=== PATIENT | male | born 1950 | race Caucasian/White ===

== ENCOUNTER 2020-03-28 09:45 | Outpatient (REF) | payer MEDICARE, MEDICAID, OTHER, SELFPAY ==
[2020-03-28 11:53] LABS: MANUAL DIFF FLAG NO
[2020-03-28 12:03] LABS: Basophils Percent Auto 0.2 % (0-2); Eosinophils Absolute Auto 0.2 X10*3/uL (0.0-0.4); Eosinophils Percent Auto 5.7 % (0-4); Hematocrit 43.4 % (42-52); Hemoglobin 14.2 g/dl (14.0-18.0); Imm Gran Abs Auto 0.01 X10*3/uL (0.00-0.03); Imm Gran Pct Auto 0.2 % (0.0-0.4); Lymphocytes Absolute Auto 1.4 X10*3/uL (1.2-4.9); Lymphocytes Percent Auto 32.6 % (20-40); Mean Corpuscular HGB Conc 32.7 g/dl (31.0-36.0); Mean Corpuscular Hemoglobin 28.9 pg (27.0-33.0); Mean Corpuscular Volume 88.2 fL (80-98); Mean Platelet Volume 10.4 fL (9.4-12.4); Monocytes Absolute Auto 0.4 X10*3/uL (0.1-1.2); Monocytes Percent Auto 9.5 % (2-11); Neutrophils Absolute Auto 2.2 X10*3/uL (2.0-8.3); Neutrophils Percent Auto 51.8 % (45-73); Platelet Count 167 X10*3/uL (160-400); Red Blood Count 4.92 X10*6/uL (4.60-5.80); Red Cell Distribution Width 12.7 % (11.0-16.0); White Blood Count 4.2 X10*3/uL (4.8-10.8)
[2020-03-28 12:10] LABS: INTERNATIONAL NORM RATIO 1.1 (0.9-1.1); Prothrombin Time 12.7 SEC (10.8-13.0)
[2020-03-28 12:52] LABS: Alanine Aminotransferase 15 U/L (0-40); Albumin Level 4.4 g/dL (3.5-5.0); Alkaline Phosphatase 55 U/L (39-117); Aspartate Amino Transferase 22 U/L (5-37); Bilirubin Direct 0.5 mg/dL (0.0-0.5); Bilirubin Total 1.6 mg/dL (0.0-1.0); Iron 138 mcg/dL (45-160); Percent Iron Saturation 45 % (15-50); Total Iron Binding Capacity 308 mcg/dL (228-428); Unsaturated Iron Binding 170 ug/dL
[2020-03-28 12:55] LABS: HBS Num1 1.64 mIU/mL (0-7.99); HBsAGNum1 0.21 S/CO (0.00-0.99); Hepatitis B Surface Antigen Negative (Negative); ~Hepatitis B Surface Antibody NONREACTIVE (Nonreactive)
[2020-03-28 12:57] LABS: Ferritin 135 ng/mL (20-250)
[2020-04-04 13:56] LABS: FIB-ALT 12 U/L (9-46); FIB-Alpha-2-Macroglobulin 312 mg/dL (106-279); FIB-Apolipoprotein A1 138 mg/dL (94-176); FIB-GGT 14 U/L (3-70); FIB-Haptoglobin 97 mg/dL (43-212); Liver Fibrosis Score 0.65; Liver Fibrosis Stage F3; Nec Inflam Act Grade A0; Nec Inflam Act Score 0.06
== END 2020-03-28 09:46 | disposition home or self-care (01) ==
LOC: HO.LAB 09:45
PROVIDERS: Visit Provider Internal Medicine Gastroenterology
DX: R63.4 Abnormal weight loss (principal); Z86.19 Personal history of other infectious and parasitic diseases
CPT/HCPCS: 36415; 80076; 81596; 82728; 83540; 85025; 85610; 86706; 87340

== ENCOUNTER 2020-04-01 13:28 | Outpatient (REF) | payer MEDICARE, OTHER, SELFPAY | END 2020-04-01 13:29 | disposition home or self-care (01) | LOC: HO.LNP 13:28 | PROVIDERS: Visit Provider Internal Medicine Gastroenterology | DX: R63.4 Abnormal weight loss (principal); Z86.19 Personal history of other infectious and parasitic diseases | CPT/HCPCS: 87338 ==

== ENCOUNTER → 2020-04-24 09:10 | Outpatient (BNVA) | payer MEDICARE, MEDICAID, SELFPAY | PROVIDERS: PCP Internal Medicine; Visit Provider Internal Medicine Gastroenterology | DX: R63.4 Abnormal weight loss (principal); K59.09 Other constipation; Z86.010 Personal history of colon polyps; Z86.19 Personal history of other infectious and parasitic diseases | CPT/HCPCS: 99212 ==

== ENCOUNTER → 2020-07-24 09:00 | Outpatient (BNVA) | payer MEDICARE, MEDICAID, SELFPAY | PROVIDERS: PCP Internal Medicine; Visit Provider Surgery | DX: K62.82 Dysplasia of anus (principal); A63.0 Anogenital (venereal) warts | CPT/HCPCS: 46600; 99212 ==

== ENCOUNTER → 2021-01-21 08:57 | Outpatient (BNVA) | payer MEDICARE, MEDICAID, SELFPAY | PROVIDERS: PCP Internal Medicine; Referring Provider Internal Medicine; Visit Provider Surgery | DX: Z87.19 Personal history of other diseases of the digestive system (principal) | CPT/HCPCS: 46600; 99212 ==

== ENCOUNTER 2021-02-09 10:58 | Outpatient (REF) | payer MEDICARE, OTHER, SELFPAY ==
[2021-02-09 12:55] LABS: MANUAL DIFF FLAG NO
[2021-02-09 13:11] LABS: Basophils Percent Auto 0.2 % (0-2); Eosinophils Absolute Auto 0.2 X10*3/uL (0.0-0.4); Eosinophils Percent Auto 5.2 % (0-4); Hematocrit 43.7 % (42-52); Hemoglobin 13.8 g/dl (14.0-18.0); Imm Gran Abs Auto 0.01 X10*3/uL (0.00-0.03); Imm Gran Pct Auto 0.2 % (0.0-0.4); Lymphocytes Absolute Auto 1.3 X10*3/uL (1.2-4.9); Lymphocytes Percent Auto 28.5 % (20-40); Mean Corpuscular HGB Conc 31.6 g/dl (31.0-36.0); Mean Corpuscular Hemoglobin 27.8 pg (27.0-33.0); Mean Corpuscular Volume 87.9 fL (80-98); Mean Platelet Volume 9.3 fL (9.4-12.4); Monocytes Absolute Auto 0.5 X10*3/uL (0.1-1.2); Monocytes Percent Auto 9.8 % (2-11); Neutrophils Absolute Auto 2.6 X10*3/uL (2.0-8.3); Neutrophils Percent Auto 56.1 % (45-73); Platelet Count 169 X10*3/uL (160-400); Red Blood Count 4.97 X10*6/uL (4.60-5.80); White Blood Count 4.6 X10*3/uL (4.8-10.8)
[2021-02-09 13:29] LABS: INTERNATIONAL NORM RATIO 1.1 (0.9-1.1)
[2021-02-09 13:37] LABS: Alanine Aminotransferase 17 U/L (0-40); Albumin Level 4.4 g/dL (3.5-5.0); Alkaline Phosphatase 62 U/L (39-117); Anion Gap 12 (12-20); Aspartate Amino Transferase 23 U/L (5-37); Bilirubin Total 1.6 mg/dL (0.0-1.0); Blood Urea Nitrogen 18 mg/dL (9-16); Calcium 9.6 mg/dL (8.4-10.2); Carbon Dioxide 30 mmol/L (22-29); Chloride 104 mmol/L (96-108); Estimated Glomerular Filt Rate > 60; Glucose Random 104 mg/dL (60-115); Sodium 142 mmol/L (135-145); Total Protein 7.2 g/dL (6.5-8.0)
[2021-02-09 14:00] LABS: Ferritin 129 ng/mL (20-250)
[2021-02-11 10:42] LABS: Alpha Fetoprotein 1.6 ng/mL (<6.1)
[2021-02-11 12:36] LABS: Anti Nuclear Antibody Screen NEGATIVE (NEGATIVE)
== END 2021-02-09 10:59 | disposition home or self-care (01) ==
LOC: HO.LAB 10:58
PROVIDERS: PCP Internal Medicine; Visit Provider Internal Medicine Gastroenterology
DX: K74.60 Unspecified cirrhosis of liver (principal); K59.09 Other constipation; A63.0 Anogenital (venereal) warts; Z86.19 Personal history of other infectious and parasitic diseases; Z86.010 Personal history of colon polyps
CPT/HCPCS: 36415; 80053; 82105; 82728; 85025; 85610; 86038; 86039; 99212

== ENCOUNTER 2021-04-01 08:35 | Outpatient (REF) | payer MEDICARE, OTHER, SELFPAY ==
--- NOTE | ~2021-04-01 | US_ITS ---
EXAMINATION: US ABDOMEN COMPLETE CLINICAL INFORMATION: Unspecified cirrhosis of liver. COMPARISON: Ultrasound abdomen complete 01/16/2020 TECHNIQUE: Real-time imaging of the abdominal viscera. FINDINGS: PANCREAS: Normal. ABDOMINAL AORTA: The proximal, mid, and distal segments are normal in caliber. INFERIOR VENA CAVA: Visualized portions are normal. LIVER: Normal. The liver is normal in size. The liver contour is normal. Parenchymal echogenicity is normal. No focal hepatic lesion. There is no intrahepatic biliary duct dilatation seen. GALLBLADDER: Gallbladder wall thickness is 0.26 cm. The gallbladder is physiologically distended without evidence of stones, sludge, polyps, wall thickening or pericholecystic fluid. COMMON BILE DUCT: Normal in caliber measuring 0.3 cm in diameter. RIGHT KIDNEY: Normal. No hydronephrosis. No renal calculi or focal parenchymal lesions. The kidney measures 10.3 cm in maximum dimension. LEFT KIDNEY: Normal. No hydronephrosis. No renal calculi or focal parenchymal lesions. The kidney measures 10.1 cm in maximum dimension. SPLEEN: Normal. The spleen measures 9.2 cm in maximum dimension. FREE FLUID: None. US/US abdomen complete IMPRESSION: Unremarkable ultrasound abdomen.
== END 2021-04-01 08:36 | disposition home or self-care (01) ==
LOC: HO.US 08:35
PROVIDERS: Visit Provider Internal Medicine Gastroenterology
DX: K74.60 Unspecified cirrhosis of liver (principal)
CPT/HCPCS: 76700

== ENCOUNTER 2021-04-03 08:36 | Day surgery (SDC) | payer MEDICARE, OTHER, SELFPAY ==
--- NOTE | 2021-04-02 09:05 | HO.ANESPROP2 ---
Documented by User: Niurka Ly NP 04/02/21 09:29 HPI - Anesthesia Eval Consult details Narrative: 70yo M for Colonoscopy PMFSH Active Problems Active Problems: All Active Problems (Updated 03/30/21 @ 14:26 by Yamilex Benavidez, SORIN) Cirrhosis of liver without ascites (Acute) Anal intraepithelial neoplasia I (Acute) Anal condyloma (Acute) Chronic constipation (Acute) History of Helicobacter pylori infection (Acute) History of adenomatous polyp of colon (Acute) Weight loss (Acute) Past Medical History Medical History Anal condyloma Anal intraepithelial neoplasia I Chronic constipation Cirrhosis History of adenomatous polyp of colon History of Helicobacter pylori infection Hypertension Weight loss Family History Family History Father Liver problem Mother Alzheimer disease Sister History of breast cancer Surgical History Surgical History History of esophagogastroduodenoscopy (EGD) History of hemorrhoidectomy Hx of colonoscopy Social History Social History Alcohol intake: current Alcohol intake frequency: does not drink Patient Tobacco Use Status: Former Tobacco user Use of substances other than those prescribed or required for medical reasons: No Are you DNR?: No Advance Directives: No Advance Directives Information Provided: Yes Meds Allergies Allergy/AdvReac Type Severity Reaction Status Date / Time No Known Allergies Allergy Verified 03/30/21 14:31 Home Medications Medication Instructions Recorded Confirmed Last Taken Type docusate sodium 100 mg capsule 100 mg PO BID 04/24/20 03/30/21 Unknown History (Colace) losartan 50 mg-hydrochlorothiazide 1 tab PO DAILY 04/24/20 03/30/21 04/03/21 History 12.5 mg tablet Exam Exam Date and Time: April 02, [id number] Pertinent Lab Results Pertinent Lab Results: Laboratory Tests 02/09/21 02/09/21 12:35 12:35 WBC 4.6 L Hgb 13.8 L Hct 43.7 Plt Count 169 Sodium 142 Potassium 4.0 Chloride 104 Carbon Dioxide 30 H BUN 18 H Creatinine 0.99 Laboratory Tests 02/09/21 02/09/21 12:35 12:35 Total Bilirubin 1.6 H AST 23 ALT 17 Alkaline Phosphatase 62 Total Protein 7.2 Albumin 4.4 Alpha Fetoprotein 1.6 Assessment and Plan Assessment Anesthesia Assessment: Chart Reviewed Documented by User: Deborah Arguello MD 04/03/21 09:32 PMF Past Medical History Medical History Anal condyloma Anal intraepithelial neoplasia I Chronic constipation Cirrhosis History of adenomatous polyp of colon History of Helicobacter pylori infection Hypertension Weight loss Family History Family History Father Liver problem Mother Alzheimer disease Sister History of breast cancer Family history of problems with anesthesia: No Surgical History Surgical History History of esophagogastroduodenoscopy (EGD) History of hemorrhoidectomy Hx of colonoscopy History of Problems with Anesthesia: No Social History Social History Alcohol intake: current Alcohol intake frequency: does not drink Patient Tobacco Use Status: Former Tobacco user Use of substances other than those prescribed or required for medical reasons: No Are you DNR?: No Advance Directives: No Advance Directives Information Provided: Yes Meds Allergies Allergy/AdvReac Type Severity Reaction Status Date / Time No Known Allergies Allergy Verified 03/30/21 14:31 Home Medications Medication Instructions Recorded Confirmed Last Taken Type docusate sodium 100 mg capsule 100 mg PO BID 04/24/20 03/30/21 Unknown History (Colace) losartan 50 mg-hydrochlorothiazide 1 tab PO DAILY 04/24/20 03/30/21 04/03/21 History 12.5 mg tablet Exam Airway Mallampati Class: II TM Dist: >3cm Neck ROM: Full Assessment and Plan Assessment Anesthesia Assessment: Anesthesia Plan Discussed Final Anesthetic Review Family History of Problems with Anesthesia: No History of Problems with Anesthesia: No NPO: Yes ASA Class: III Final Preanesthetic Review: No Changes in Pt Med Stat, Meds/Allgs Chart Reviewed, Consent Obtained/Reviewed and Anes Risks/Benef Reviewed Patient Risk: Intermediate Procedure Risk: Low Assessment/Block/Sedation in SS: Assess/Block/Sedation-SS Anesthetic Plan Anesthetic Plan: MAC: Disposition: Standard PACU
[2021-04-03 09:15] VITALS: BP 132/71; PULSE 101; RESP 18; TEMP 36.4; O2SAT 98; BMI 20.5
[2021-04-03 09:45] LABS: COVID-19 Test Negative (Negative)
[2021-04-03] MEDS: Lactated Ringers 1,000 ML 100 ML IVCONT (09:59)
--- NOTE | 2021-04-03 10:21 | MHC.SHP ---
Pre-Procedural Eval Section A Date of Service: 04/03/21 The patient is an INPATIENT: No The History & Physical has been completed within 30 days and I have reviewed it.: No Section B Chief Complaint: screening, hx of adenoma polyp of colon Details of Present Illness: Colon cancer screening, history of colon polyps Relevant Family History (Specify if Yes): No Relevant Social History: None Present Medications: see Short Stay Collaborative assessment Medical History: Significant History (Anal condyloma Anal intraepithelial neoplasia I Chronic constipation History of adenomatous polyp of colon History of Helicobacter pylori infection Hypertension Weight loss) History of Previous Operations: Relevant previous surgery/procedure and date(s) (History of esophagogastroduodenoscopy (EGD) (10/30/19) History of hemorrhoidectomy (01/08/20) Hx of colonoscopy (10/30/19)) Allergies: Allergies Allergy/AdvReac Type Severity Reaction Status Date / Time No Known Allergies Allergy Verified 03/30/21 14:31 Review of Systems Sugical H&P ROS: Negative: Constitution, Cardiovascular, Respiratory and Gastrointestinal Exam Surgical H&P Exam: Normal: Heart, Normal: Lungs, Normal: Extremities and Normal: Abdomen Plan Diagnosis/Plan: Unchanged I have reviewed the history and physical and performed a pertinent physical examination on my patient. No changes have occurred unless specified.
--- NOTE | 2021-04-03 10:26 | P.OP_ITS ---
Operative Note Operative Note Date of Service: 04/03/21 Narrative: Pre-op diagnosis:?Colon cancer screening, history of colon polyps Post-op diagnosis:?other (Colon polyp, diverticulosis, hemorrhoids) Procedure:? COLONOSCOPY TILL CECUM WITH SNARE POLYPECTOMY AND SUBMUCOSAL INJECTION Consent: Indications for the procedure and potential complications of bleeding, perforation, reaction to medications and missed diagnosis were discussed with the patient and informed consent was obtained. Instrument: Olympus PCF H 190 L variable stiffness pediatric colonoscope Monitoring: Vital signs and clinical assessment, intermittent blood pressure monitoring, continuous EKG monitoring, Pulse oximetry and Carbon Dioxide monitoring were done throughout the procedure. Colon withdrawl time was 25 minutes. Procedure: The patient was placed in the left lateral decubitis position and pre-procedure medications were administered. After a digital rectal examination of the ano-rectum, the video colonoscope was inserted into the rectum and advanced through the colon to the cecum. The colonoscope was slowly withdrawn in a retrograde panoramic fashion and the colon mucosa was carefully examined including a retroflexed view of the rectum. Findings and interventions are described below. Procedure Difficulty: Without difficulty Findings: Terminal Ileum: Not evaluated Cecum:? Normal. No recurrent polyps visualized over the ileocecal valve. Ascending Colon:? Normal Transverse Colon:? Normal Descending Colon:? Normal Sigmoid Colon:? Moderate diverticulosis Rectum:? A 2 x 2 cms flat polyp at the anal verge raised with 2 cc of Orise solution (submucosal injection) and removed piece meal with a hot snare. Residual 1 cms polyp from past polypectomy - ablated with a hot snare. Ano-rectum:? Moderate internal hemorrhoids Colon preparation: Excellent ? Impression and Post Procedure Diagnosis: Colonoscopy Findings: Two polyps removed Moderate diverticulosis seen in the sigmoid colon Moderate hemorrhoids on retroflexed exam. Plan: Await pathology results Patient has an appointment on 04/30/21 in the [facility] with Pedro Rader M.D.. Repeat Colonoscopy interval based on path results - in 3 years if polyps are adenomatous and due to hx of adenomatous colon polyps. Above findings were reviewed with the patient and colon polyps and diverticulosis handouts were given in the discharge area Surgeon:?Pedro Rader MD Anesthesia:?MAC (Robbi Atwood CRNA) Was an Business Systems Developer used for this Procedure?:?Yes Business Systems Developer:?Satish Wong Estimated blood loss (mL):?0 Pathology:?other (A- RECTAL POLYP? O-RISE USED) Condition:?stable Disposition:?PACU
[2021-04-03 11:10] VITALS: BP 90/52; PULSE 79; RESP 19; TEMP 36.1; O2SAT 99
[2021-04-03 11:31] VITALS: BP 100/55; PULSE 78; RESP 18; TEMP 36.1; O2SAT 98
== END 2021-04-03 11:58 | disposition home or self-care (01) ==
PROVIDERS: Anesthesiology; PCP Internal Medicine; Visit Provider Internal Medicine Gastroenterology
PROC: 0DJD8ZZ Inspection of Lower Intestinal Tract, Via Natural or Artificial Opening Endoscopic (ICD-10-PCS; CPT 45378; principal; 2021-04-03 10:50)
DX: Z12.11 Encounter for screening for malignant neoplasm of colon (principal); K57.30 Diverticulosis of large intestine without perforation or abscess without bleeding; K64.8 Other hemorrhoids; A63.0 Anogenital (venereal) warts; I10 Essential (primary) hypertension; Z86.010 Personal history of colon polyps; Z79.899 Other long term (current) drug therapy; Z20.822 Contact with and (suspected) exposure to COVID-19
CPT/HCPCS: 45385; 45381; 36415; 87635; 88305

== ENCOUNTER → 2021-04-30 14:55 | Outpatient (BNVA) | payer MEDICARE, OTHER, SELFPAY | PROVIDERS: Referring Provider Internal Medicine; Visit Provider Internal Medicine Gastroenterology | DX: K74.60 Unspecified cirrhosis of liver (principal); K62.82 Dysplasia of anus; A63.0 Anogenital (venereal) warts; K59.09 Other constipation; R63.4 Abnormal weight loss; Z86.19 Personal history of other infectious and parasitic diseases; Z86.010 Personal history of colon polyps; Z79.899 Other long term (current) drug therapy | CPT/HCPCS: 99212 ==

== ENCOUNTER 2021-05-05 08:00 | Outpatient (REF) | payer MEDICARE, OTHER, SELFPAY ==
[2021-05-05 08:49] LABS: Hematocrit 43.2 % (42.0-52.0); Hemoglobin 13.6 g/dl (14.0-18.0); Mean Corpuscular HGB Conc 31.5 g/dl (31.0-36.0); Mean Corpuscular Hemoglobin 28.2 pg (27.0-33.0); Mean Corpuscular Volume 89.4 fL (80.0-98.0); Mean Platelet Volume 9.5 fL (9.4-12.4); Platelet Count 147 X10*3/uL (160-400); Red Blood Count 4.83 X10*6/uL (4.60-5.80); Red Cell Distribution Width 12.9 % (11.0-16.0)
[2021-05-05 09:18] LABS: Alanine Aminotransferase 18 U/L (0-40); Alkaline Phosphatase 53 U/L (39-117); Aspartate Amino Transferase 21 U/L (5-37); Bilirubin Direct 0.5 mg/dL (0.0-0.5); Bilirubin Total 1.4 mg/dL (0.0-1.0); Total Protein 6.5 g/dL (6.5-8.0)
[2021-05-06 08:37] LABS: ~HepC Num1 0.09 S/CO (0.00-0.79); ~Hepatitis C Antibody Nonreactive (Nonreactive)
[2021-05-06 08:52] LABS: Hepatitis A Antibody IgG REACTIVE (Nonreactive); ~Hepatitis A Antibody IgG 13.24 S/CO (0.00-0.99)
== END 2021-05-05 08:01 | disposition home or self-care (01) ==
LOC: HO.LAB 08:00
PROVIDERS: Visit Provider Internal Medicine Gastroenterology
DX: K74.60 Unspecified cirrhosis of liver (principal)
CPT/HCPCS: 36415; 80076; 85027; 86708; 86803

== ENCOUNTER → 2021-07-20 09:44 | Outpatient (BNVA) | payer MEDICARE, OTHER, SELFPAY | PROVIDERS: Visit Provider Surgery | DX: K62.82 Dysplasia of anus (principal) | CPT/HCPCS: 46600; 99212 ==

== ENCOUNTER 2021-09-26 16:25 | Emergency (ER) | payer OTHER, SELFPAY ==
[2021-09-26 16:31] VITALS: BP 141/84; PULSE 87; RESP 15; TEMP 36.6; O2SAT 98; BMI 22.8
--- NOTE | 2021-09-26 16:33 | ED.GENADULT ---
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 Patient states that he was sexually active with his in the morning, then got in the shower and saw a bruise type salvador on the right side of his penis. Patient denies any penile discharge, scrotal pain, dizziness, lightheadedness, abdominal pain, nausea, vomiting, fever, chills, blurry vision, double vision, loss of vision, chest pain, difficulty breathing, shortness of breath, back pain, night sweats, pain with urination, increased urinary frequency, increased urinary urgency, blood in his urine or stool, syncope or a near syncopal episode, recent trauma or falls, bowel incontinence, bladder incontinence, bowel retention, bladder retention, or any other complaints at this time. Patient states that his does not have any symptoms of anything. Treatments prior to arrival: none Related Data Home Medications Medication Instructions Recorded Confirmed docusate sodium 100 mg capsule 100 mg PO BID 04/24/20 07/20/21 (Colace) losartan 50 mg-hydrochlorothiazide 1 tab PO DAILY 04/24/20 07/20/21 12.5 mg tablet Previous Rx's Medication Instructions Recorded psyllium husk 2.6 gram/4.1 gram 1 tbsp PO DAILY 30 Days #480 g 04/24/20 oral powder Allergies Allergy/AdvReac Type Severity Reaction Status Date / Time No Known Allergies Allergy Verified 07/20/21 09:58 Review of Systems Constitutional: Constitutional: Reports no additional constitutional complaints, Denies chills, Denies fever(s) and Denies night sweats Eyes: Eyes: Reports no additional eye complaints, Denies blurry vision, Denies change in vision, Denies diplopia, Denies eye discharge, Denies loss of vision and Denies eye pain ENT: Denies dizziness Cardiovascular: Cardiovascular: Reports no additional cardiovascular complaints, Denies chest pain, Denies lightheadedness, Denies Loss of Consciousness and Denies dyspnea Respiratory: Respiratory: Reports no additional respiratory complaints and Denies dyspnea Gastrointestinal: Gastrointestinal: Reports no additional gastrointestinal complaints, Denies abdominal pain, Denies melena, Denies hematochezia, Denies change in bowel habits and Denies change in stool character Genitourinary: Genitourinary: Reports no additional male genitourinary complaints, Denies hematuria, Denies oliguria, Denies difficulty urinating, Denies dysuria, Denies urinary frequency, Denies urinary hesitancy, Denies urinary incontinence and Denies urinary urgency Comments: penile bruise Musculoskeletal: Musculoskeletal: Reports no additional musculoskeletal complaints, Denies numbness and Denies tingling Neurologic: Denies dizziness, Denies loss of vision, Denies numbness and Denies tingling Psychiatric: Psychiatric: Reports no additional psychiatric complaints Endocrine: Endocrine: Reports no additional endocrine complaints Hematologic/Lymphatic: Hematologic/Lymphatic: Reports no additional hematologic/lymphatic complaints Allergic/Immunologic: Allergic/Immunologic: Reports no additional allergic/immunologic complaints PMFSH Past Medical History Attestation statement: The following information was validated with the patient. Source: old records reviewed Medical History Anal condyloma Anal intraepithelial neoplasia I Chronic constipation Cirrhosis History of adenomatous polyp of colon History of Helicobacter pylori infection Hypertension Weight loss Surgical History History of esophagogastroduodenoscopy (EGD) History of hemorrhoidectomy Hx of colonoscopy Family History Family History Father Liver problem Mother Alzheimer disease Sister History of breast cancer Social History Social History Alcohol intake: current Alcohol intake frequency: does not drink Patient Tobacco Use Status: Former Tobacco user Advance Directives: No Advance Directives Information Provided: No Physical Exam ED Vital Signs: Vital Signs - 24 hr 09/26/21 16:31 Temperature 97.9 F Pulse Rate 87 Respiratory Rate 15 Blood Pressure 141/84 H Pulse Oximetry 98 BMI result Body Mass Index 22.8 Const General: cooperative, no acute distress, alert and awake Nutritional Appearance: well nourished Orientation/consciousness: patient oriented x3 Limitations: no limitations HENMT Head: Yes normal to inspection and Yes atraumatic Ears: hearing grossly normal bilaterally and external ears normal General nose exam: Normal external nose present, no nasal discharge noted and no epistaxis Face and sinus: Yes normal facial exam, No abrasion and No laceration Mouth: Normal oral and palatal mucosa present, no drooling and no muffled voice Eyes General: appearance normal, both eyes and all related structures Periorbital: periorbital findings normal Eyelids: Yes eyelids normal Conjunctivae: conjunctivae normal Pupils: Equal, round and reactive pupils present EOM: EOMs intact bilaterally Neck Neck: Yes normal visual inspection, Yes full ROM and Yes no lymphadenopathy Chest Chest palpation & inspection: normal inspection of the chest Resp Effort & Inspection: normal respiratory effort and able to speak in complete sentences Auscultation: clear to auscultation bilaterally Cardio Rate: regular rate Rhythm: regular rhythm GI Inspection: Yes normal to inspection Penis: other (small bruise to the right side of the shaft of the penis) Neuro General: patient oriented x3 and moves all extremities Cranial nerves: Yes Equal, round and reactive pupils present Cognition (Neuro): normal cognition Motor exam (neuro): 5/5 motor strength present throughout Sensory Exam: Normal double simultaneous stimulation for sensation Coordination: [id number] test normal Extrem General: Yes normal to inspection, Yes full ROM and Yes capillary refill normal Psych Appearance: grossly normal Mental Status: mental status grossly normal Affect: normal affect Attitude: cooperative Thought process: Normal thought process present Thought content: Normal thought content present Insight: Good insight present (Psych) Medical Decision Making MDM Narrative Medical decision making narrative: Patient is a 71 year old male presenting to the emergency department today with bruising to the penis. Patient's physical exam showed a small bruise to the right side of the penis shaft. I explained my physical exam findings to the patient. I answered all questions asked by the patient. I stressed the importance of the patient taking his medication as prescribed. I stressed the importance of the patient following up with his primary care provider. I stressed the importance of the patient returning to the emergency department immediately if his symptoms were to worsen or if he were to develop any dizziness, shortness of breath, difficulty breathing, chest pain, blurry vision, loss of vision, nausea, vomiting, abdominal pain, fever, chills, back pain, or any other complaints. Patient verbalized agreement and understanding with this treatment plan and discharge. Differential Diagnosis Differential Diagnosis: penile bruise Medical Records Medical records reviewed: Yes I reviewed the patient's medical records. Discharge Plan Discharge Clinical Impression: Blood blister Patient Disposition: Home, Self-Care Instructions: [facility] (ED) Additional Instructions: Follow up with your primary care provider. Return to the emergency department immediately if your symptoms worsen or if you develop any dizziness, shortness of breath, difficulty breathing, chest pain, blurry vision, loss of vision, nausea, vomiting, abdominal pain, fever, chills, back pain, or any other complaints. Prescriptions: No Action losartan-hydrochlorothiazide 50-12.5 mg tablet 1 tab PO DAILY 0RF docusate sodium [Colace] 100 mg capsule 100 mg PO BID 0RF psyllium husk 2.6 gram/4.1 gram powder 1 tbsp PO DAILY 30 Days Qty: 480 3RF Rx Instructions: mix into at least 8 oz of water or juice before administering Referrals: Miah Will MD [Physician] - 2 days Hayley Mooney MD [Primary Care Provider] - 2 days Print Language: Luxembourgish
== END 2021-09-26 16:52 | disposition home or self-care (01) ==
PROVIDERS: Emergency Provider Emergency Medicine Emergency Medical Services; PCP Internal Medicine
DX: N48.89 Other specified disorders of penis (principal); I10 Essential (primary) hypertension; K74.60 Unspecified cirrhosis of liver
CPT/HCPCS: 99282; 99283

== ENCOUNTER 2021-10-20 08:56 | Outpatient (REF) | payer OTHER, SELFPAY ==
[2021-10-20 10:30] LABS: Estimated Average Glucose 105 mg/dL; Hemoglobin A1c % 5.3 %
[2021-10-20 10:42] LABS: Anion Gap 10 (12-20); Blood Urea Nitrogen 20 mg/dL (9-16); Calcium 9.4 mg/dL (8.4-10.2); Carbon Dioxide 30 mmol/L (22-29); Chloride 104 mmol/L (96-108); Cholesterol 205 mg/dL; Estimated Glomerular Filt Rate > 60; Glucose Random 98 mg/dL (60-115); HDL Cholesterol 41 mg/dL; LDL Cholesterol Calculated 148 mg/dl; Potassium 3.9 mmol/L (3.3-5.1); Sodium 140 mmol/L (135-145); Triglycerides 84 mg/dL
[2021-10-20 10:47] LABS: HBS Num1 0.91 mIU/mL (0-7.99); HBsAGNum1 0.23 S/CO (0.00-0.99); HIV AB/AG Nonreactive (Nonreactive); HIV Num 1 0.06 S/CO (0.00-0.99); Hepatitis B Core Antibody Nonreactive (Nonreactive); Hepatitis B Surface Antigen Negative (Negative); ~Hepatitis B Surface Antibody NONREACTIVE (Nonreactive)
[2021-10-20 10:48] LABS: Vitamin D 25-OH Total 35.5 ng/mL (>30)
[2021-10-23 15:07] LABS: HCV Log PCR <1.18 NOT DETECTED Log IU/mL (NOT DETECTED); HepC Viral Load <15 NOT DETECTED IU/mL (NOT DETECTED)
[2021-10-24 10:47] LABS: Hepatitis B Viral DNA Qn - cp <1.00 NOT DETECTED Log IU/mL (NOT DETECTED); Hepatitis B Viral DNA Qn-IU/mL <10 NOT DETECTED IU/mL (NOT DETECTED)
== END 2021-10-20 08:57 | disposition home or self-care (01) ==
LOC: HO.LAB 08:56
PROVIDERS: PCP Internal Medicine; Visit Provider Internal Medicine
DX: I10 Essential (primary) hypertension (principal); K31.7 Polyp of stomach and duodenum; K62.82 Dysplasia of anus; R63.4 Abnormal weight loss
CPT/HCPCS: 36415; 80048; 80061; 82306; 83036; 86704; 86706; 87340; 87389; 87517; 87522

== ENCOUNTER → 2021-12-16 09:49 | Outpatient (BNVA) | payer OTHER, SELFPAY | PROVIDERS: PCP Internal Medicine; Visit Provider Surgery | DX: K62.82 Dysplasia of anus (principal) | CPT/HCPCS: 46600; 99212 ==

== ENCOUNTER → 2022-01-20 11:09 | Outpatient (BNVA) | payer OTHER, SELFPAY | PROVIDERS: PCP Internal Medicine; Visit Provider Urology | DX: N48.1 Balanitis (principal) | CPT/HCPCS: 99202 ==

== ENCOUNTER → 2022-04-29 09:56 | Outpatient (BNVA) | payer OTHER, SELFPAY | PROVIDERS: PCP Internal Medicine; Referring Provider Internal Medicine; Visit Provider Internal Medicine Gastroenterology | DX: K74.60 Unspecified cirrhosis of liver (principal); A63.0 Anogenital (venereal) warts; K59.09 Other constipation; R63.4 Abnormal weight loss; Z86.19 Personal history of other infectious and parasitic diseases; Z86.010 Personal history of colon polyps | CPT/HCPCS: 99212 ==

== ENCOUNTER 2022-04-30 08:56 | Outpatient (REF) | payer OTHER, SELFPAY ==
[2022-04-30 09:06] LABS: MANUAL DIFF FLAG NO
[2022-04-30 09:33] LABS: Basophils Percent Auto 0.4 % (0-2); Eosinophils Absolute Auto 0.4 X10*3/uL (0.0-0.4); Hematocrit 43.7 % (42.0-52.0); Hemoglobin 14.1 g/dl (14.0-18.0); Imm Gran Abs Auto 0.01 X10*3/uL (0.00-0.03); Imm Gran Pct Auto 0.2 % (0.0-0.4); Lymphocytes Absolute Auto 1.6 X10*3/uL (1.2-4.9); Lymphocytes Percent Auto 34.4 % (20-40); Mean Corpuscular HGB Conc 32.3 g/dl (31.0-36.0); Mean Corpuscular Hemoglobin 28.6 pg (27.0-33.0); Mean Corpuscular Volume 88.6 fL (80.0-98.0); Mean Platelet Volume 9.8 fL (9.4-12.4); Monocytes Absolute Auto 0.5 X10*3/uL (0.1-1.2); Monocytes Percent Auto 10.3 % (2-11); Neutrophils Absolute Auto 2.2 x10*3/uL (2.0-8.3); Neutrophils Percent Auto 46.7 % (45-73); Platelet Count 159 X10*3/uL (160-400); Red Blood Count 4.93 X10*6/uL (4.60-5.80); White Blood Count 4.7 X10*3/uL (4.8-10.8)
[2022-04-30 09:39] LABS: INTERNATIONAL NORM RATIO 1.1 (0.9-1.1); Prothrombin Time 12.4 SEC (10.0-13.1)
[2022-04-30 10:23] LABS: Alanine Aminotransferase 17 U/L (0-40); Albumin Level 4.2 g/dL (3.5-5.0); Alkaline Phosphatase 76 U/L (39-117); Anion Gap 15 (12-20); Aspartate Amino Transferase 24 U/L (5-37); Bilirubin Total 1.4 mg/dL (0.0-1.0); Blood Urea Nitrogen 15 mg/dL (9-16); Calcium 9.2 mg/dL (8.4-10.2); Carbon Dioxide 27 mmol/L (22-29); Chloride 104 mmol/L (96-108); Estimated Glomerular Filt Rate > 60; Glucose Random 94 mg/dL (60-115); Potassium 4.9 mmol/L (3.3-5.1); Sodium 141 mmol/L (135-145)
[2022-05-04 13:52] LABS: Alpha Fetoprotein 1.4 ng/mL (<6.1)
== END 2022-04-30 08:57 | disposition home or self-care (01) ==
LOC: HO.LAB 08:56
PROVIDERS: Absent Provider Internal Medicine; PCP Internal Medicine; Visit Provider Internal Medicine Gastroenterology
DX: K74.60 Unspecified cirrhosis of liver (principal)
CPT/HCPCS: 36415; 80053; 82105; 85025; 85610

== ENCOUNTER 2022-06-11 08:57 | Outpatient (REF) | payer OTHER, SELFPAY ==
--- NOTE | ~2022-06-11 | US_ITS ---
EXAMINATION: US ABDOMEN LIMITED WITH LIVER ELASTOGRAPHY CLINICAL INFORMATION: Cirrhosis of liver. COMPARISON: Ultrasound abdomen 04/01/2021. TECHNIQUE: Real-time imaging of the abdominal viscera. Noninvasive ultrasound liver fibrosis assessment is performed using Emani ElastPQ point quantification shear wave elastography (2D-SWE) with a C5-2 MHz transducer. Multiple elastography samples are obtained. FINDINGS: PANCREAS: Normal. The visualized pancreatic head and body are normal in appearance. The remainder of the pancreas is obscured from visualization by the overlying bowel gas. LIVER: Normal. The liver demonstrates normal size, contour and echogenicity. No focal lesion or intrahepatic biliary duct dilatation. The right lobe measures 12.8 cm in length. The left lobe measures 7.7 cm in length. Portal flow is hepatopedal. Shear wave liver elastography median stiffness is 1.35 m/s (reference: normal median stiffness is 1.3 m/s or less). IQR/median stiffness to assess sampling precision is 0.09 (reference: good quality data set is IQR/median stiffness of 0.15 or less). GALLBLADDER: Normal. The gallbladder is physiologically distended without evidence of stones, sludge, polyps, wall thickening or pericholecystic fluid. COMMON BILE DUCT: Normal in caliber measuring 0.3 cm in diameter. RIGHT KIDNEY: Normal. No hydronephrosis. No renal calculi or focal parenchymal lesions. The kidney measures 10.6 cm in maximum dimension. FREE FLUID: None. US/US abdomen chaney w elastography IMPRESSION: 1. Unremarkable limited abdomen ultrasound. 2. Liver elastography: Median liver stiffness measures 1.35 m/s corresponding to high probability normal exam. REFERENCE: Society of Radiologists in Ultrasound Liver Stiffness Thresholds (2020): LIVER STIFFNESS THRESHOLDS: *Liver Stiffness equal or less than 1.3 m/s: High probability of being normal. *Liver Stiffness less than 1.7 m/s: In the absence of other known clinical signs, rules out compensated advanced chronic liver disease. *Liver Stiffness 1.7-2.1 m/s: Suggestive of compensated advanced chronic liver disease but need further test for confirmation. *Liver Stiffness over 2.1 m/s: Rules in compensated advanced chronic liver disease. *Liver Stiffness over 2.4 m/s: Suggestive of clinically significant portal hypertension. QUALITY OF DATA SET: *IQR/Median value equal or less than 0.15 implies a quality data set. *IQR/Median value over 0.15 implies a poor quality data set. SIGNIFICANT CHANGE FROM PRIOR EXAM: Significant change if liver stiffness measurement is 10% or greater from prior exam. OTHER CONSIDERATIONS: The stage of liver fibrosis may be overestimated in the setting of acute hepatitis, liver inflammation, elevated liver function tests, hepatic vascular congestion, obstructive cholestasis, non-fasting state, and infiltrative diseases such as amyloidosis and lymphoma. In some patients with NAFLD, the liver stiffness thresholds for compensated advanced chronic liver disease may be lower. In causes other than viral hepatitis and NAFLD, liver stiffness thresholds are not well established.
== END 2022-06-11 08:58 | disposition home or self-care (01) ==
LOC: HO.US 08:57
PROVIDERS: Visit Provider Internal Medicine Gastroenterology
DX: K74.60 Unspecified cirrhosis of liver (principal)
CPT/HCPCS: 76705; 76981

== ENCOUNTER → 2022-06-17 09:37 | Outpatient (BNVA) | payer OTHER, SELFPAY | PROVIDERS: PCP Internal Medicine; Visit Provider Surgery | DX: K62.82 Dysplasia of anus (principal) | CPT/HCPCS: 46600; 99212 ==

== ENCOUNTER 2022-10-02 13:57 | Emergency (ER) | payer OTHER, SELFPAY ==
[2022-10-02 14:07] VITALS: BP 132/68; PULSE 94; RESP 18; TEMP 36.6; O2SAT 97; BMI 21.4
--- NOTE | 2022-10-02 14:07 | ED_ITS ---
HPI - General Adult General Chief complaint: Wound/Laceration <DIYA Vanegas - Last Filed: 10/02/22 14:09> Stated complaint: hand lac <DIYA Vanegas - Last Filed: 10/02/22 14:09> Time Seen by Provider: 10/02/22 15:48 <DIYA Vanegas Last Filed: 10/02/22 14:09> Source: patient and family <DIYA Gifford Last Filed: 10/02/22 16:49> Mode of arrival: ambulatory <DIYA Gifford Last Filed: 10/02/22 16:49> Limitations: no limitations <DIYA Gifford Last Filed: 10/02/22 16:49> History of Present Illness HPI narrative: 72-year-old male with history of cirrhosis, H pylori, constipation, who presents to the ER for evaluation of laceration to the back of his right hand, sustained a fall in the garden, from a tree branch. Patient sustained an irregular laceration between digits 3 and 4 on the right hand. He is able to fully bend and extend the fingers. No numbness or tingling. There was some mild oozing on arrival, he is on anticoagulation. No foreign body. He is unknown when he got his last tetanus shot. <DIYA Gifford - Last Filed: 10/02/22 16:49> MD complaint: Right hand lac <DIYA Gifford - Last Filed: 10/02/22 16:49> Onset (ago): hour(s) <DIYA Gifford Last Filed: 10/02/22 16:49> Location: right and upper extremity <DIYA Gifford Last Filed: 10/02/22 16:49> Radiation: non-radiation <DIYA Gifford Last Filed: 10/02/22 16:49> Severity: mild <DIYA Gifford Last Filed: 10/02/22 16:49> Severity scale (1-10): 4 <DIYA Gifford Last Filed: 10/02/22 16:49> Quality: sharp <DIYA Gifford Last Filed: 10/02/22 16:49> Pain Consistency: now resolved <DIYA Gifford - Last Filed: 10/02/22 16:49> Relieving factors: immobilization <DIYA Gifford - Last Filed: 10/02/22 16:49> Exacerbating factors: movement <DIYA Gifford - Last Filed: 10/02/22 16:49> Associated symptoms: denies other symptoms <DIYA Gifford - Last Filed: 10/02/22 16:49> Treatments prior to arrival: none <DIYA Gifford - Last Filed: 10/02/22 16:49> Related Data Home medications: Home Medications Medication Instructions Recorded Confirmed losartan 50 mg-hydrochlorothiazide 1 tab PO DAILY 04/24/20 06/17/22 12.5 mg tablet Previous Rx's Medication Instructions Recorded amoxicillin 875 mg-potassium 1 tab PO BID #10 tabs 10/02/22 clavulanate 125 mg tablet <DIYA Vanegas - Last Filed: 10/02/22 14:09> Allergies/adverse reactions: Allergies Allergy/AdvReac Type Severity Reaction Status Date / Time No Known Allergies Allergy Verified 06/17/22 09:47 <DIYA Vanegas - Last Filed: 10/02/22 14:09> Review of Systems Review of Systems: Yes all other systems are reviewed and are negative <DIYA Gifford - Last Filed: 10/02/22 16:49> PMF Past Medical History Medical History: Medical History Anal condyloma Anal intraepithelial neoplasia I Chronic constipation Cirrhosis History of adenomatous polyp of colon History of Helicobacter pylori infection Hypertension Weight loss <DIYA Vanegas - Last Filed: 10/02/22 14:09> Surgical History: Surgical History History of esophagogastroduodenoscopy (EGD) History of hemorrhoidectomy Hx of colonoscopy <DIYA Vanegas - Last Filed: 10/02/22 14:09> Family History Family History: Family History Father Liver problem Mother Alzheimer disease Sister History of breast cancer <DIYA Vanegas Last Filed: 10/02/22 14:09> Social History Social History: Social History Alcohol intake: current Alcohol intake frequency: does not drink Patient Tobacco Use Status: Former Tobacco user Advance Directives: No Advance Directives Information Provided: No <DIYA Vanegas Last Filed: 10/02/22 14:09> Physical Exam ED Vital Signs: Vital Signs - 24 hr 10/02/22 14:07 Temperature 97.9 F Pulse Rate 94 Respiratory Rate 18 Blood Pressure 132/68 Pulse Oximetry 97 Oxygen Delivery Method Room Air BMI result Body Mass Index 21.4 <DIYA Vanegas Last Filed: 10/02/22 14:09> Vital Signs - 24 hr 10/02/22 14:07 Temperature 97.9 F Pulse Rate 94 Respiratory Rate 18 Blood Pressure 132/68 Pulse Oximetry 97 Oxygen Delivery Method Room Air BMI result Body Mass Index 21.4 <DIYA Gifford Last Filed: 10/02/22 16:49> Appearance: Alert. Oriented X3. No acute distress. HEENT: normal inspection CVS: Normal heart rate and rhythm. Pulses normal. Respiratory: No respiratory distress. Skin: Skin warm and dry. Normal skin color. Normal skin turgor. No rashes. Extremities: dorsal aspect of right hand with an irregularly shaped laceration to the MCP of digits 3 and 4 involving the web space, no visible tendon. small amount of bleeding. normal ROM of all digits, cap refill <3 sec. no sensory deficits Neuro: Oriented X 3. grossly normal nonfocal <DIYA Gifford Last Filed: 10/02/22 16:49> Course Course Course Narrative: RME performed by Eva Berry PA-C. Patient is a 72 year old assigned male at presenting to the emergency department with a right hand laceration from a branch. Patient placed back in the waiting room pending room availability and results. <DIYA Vanegas Last Filed: 10/02/22 14:09> Medications Administered Discontinued Medications Generic Name Dose Route Start Last Admin Trade Name Freq PRN Reason Stop Dose Admin Diphtheria/Tetanus/Acell Pertussis 0.5 ml 10/02/22 14:09 10/02/22 15:50 Diphth,Pertus(Acell),Tet Adult 0.5 Ml Syringe IM 10/02/22 14:10 0.5 ml .ONCE ONE Administration <DIYA Vanegas - Last Filed: 10/02/22 14:09> Medications Administered Discontinued Medications Generic Name Dose Route Start Last Admin Trade Name Edmundo PRN Reason Stop Dose Admin Diphtheria/Tetanus/Acell Pertussis 0.5 ml 10/02/22 14:09 10/02/22 15:50 Diphth,Pertus(Acell),Tet Adult 0.5 Ml Syringe IM 10/02/22 14:10 0.5 ml .ONCE ONE Administration <DIYA Gifford - Last Filed: 10/02/22 16:49> Procedures Laceration Laceration 1: Site: hand <DIYA Gifford Last Filed: 10/02/22 16:49> Side (If applicable): right <DIYA Gifford - Last Filed: 10/02/22 16:49> Size (cm): 3 <DIYA Gifford - Last Filed: 10/02/22 16:49> Description: irregular <DIYA Gifford - Last Filed: 10/02/22 16:49> Depth: simple, single layer <DIYA Gifford - Last Filed: 10/02/22 16:49> Local Anesthetic: lidocaine 2% <DIYA Gifford Last Filed: 10/02/22 16:49> Amount of anesthesia used (mL): 2 <DIYA Gifford Last Filed: 10/02/22 16:49> Pre-repair: wound explored, irrigated extensively and deep structures intact <DIYA Gifford Last Filed: 10/02/22 16:49> Skin layer closed with: nylon <DIYA Gifford Last Filed: 10/02/22 16:49> Size (cm): 4-0 <DIYA Gifford Last Filed: 10/02/22 16:49> Number of sutures: 5 <DIYA Gifford - Last Filed: 10/02/22 16:49> Technique: simple, interrupted <DIYA Gifford - Last Filed: 10/02/22 16:49> Medical Decision Making Medical Decision Making MDM Narrative: 72-year-old bejlt-rhoh-yjioouhb male presents to the ER for evaluation of a laceration on the dorsal aspect of his right hand sustained while gardening. The wound is irregularly shaped, required suture repair. The wound was irrigated with copious amounts of saline. Wound edges were able to be well appr oximated using 5 sutures, simple interrupted. Dry sterile dressing was applied. Wound care discussed with patient and family. Will start on prophylactic antibiotics to prevent infection. Tdap was given. Stable for discharge home. <DIYA Gifford - Last Filed: 10/02/22 16:49> Differential Diagnosis Differential Diagnoses: The differential diagnosis associated with the presentation includes <DIYA Gifford - Last Filed: 10/02/22 16:49> superficial laceration, deep laceration, tendon laceration, open fracture <DIYA Gifford - Last Filed: 10/02/22 16:49> External Record Review External record reviewed: Prior outpatient labs <DIYA Gifford Last Filed: 10/02/22 16:49> Tests considered The following testing was considered but not selected: xray considered but wound superficial enough where there was no bony involvement <DIYA Gifford - Last Filed: 10/02/22 16:49> Prescription Management I considered prescription management with: Antibiotic <DIYA Gifford - Last Filed: 10/02/22 16:49> Critical Care Time Critical Care Time Critical Care Time: No <DIYA Gifford Last Filed: 10/02/22 16:49> Discharge Plan Discharge Clinical Impression: Laceration of right hand <DIYA Vanegas - Last Filed: 10/02/22 14:09> Patient Disposition: Home, Self-Care <DIYA Vanegas Last Filed: 10/02/22 14:09> Instructions: Laceration (DC) <DIYA Vanegas Last Filed: 10/02/22 14:09> Additional Instructions: You will need your stitches out in 7-10 days. See you doctor for this or come back to the ER and we will remove them. Do not get wet for 24 hours, after that you can briefly wash with soap and water then pat dry. Keep wound clean and covered. Allow it to be open to air for a few hours per day as well. Take the prescribed antibiotic to prevent infection. Do not submerge in water. If you develop signs of infection including increased pain, swelling, redness or drainage of pus come back to the ER for further evaluation. Necesitar? que le quiten los puntos en 7 a 10 d?as. Consulte a lopez m?dico por esto o regrese a la bishop de emergencias y se los quitaremos. No se moje prisca 24 horas, despu?s de eso puede lavarse brevemente con agua y jab?n y luego secarse. Mantenga la herida limpia y cubierta. Deje que est? abierto al aire prisca unas horas al d?a tambi?n. [place] el antibi?angela recetado para prevenir infecciones. No sumergir en agua. Si desarrolla signos de infecci?n, dimple aumento del dolor, hinchaz?n, enrojecimiento o drenaje de pus, regrese a la bishop de emergencias para yris evaluaci?n adicional. <DIYA Vanegas - Last Filed: 10/02/22 14:09> Prescriptions: New amoxicillin-pot clavulanate 875-125 mg tablet 1 tab PO BID Qty: 10 0RF No Action losartan-hydrochlorothiazide 50-12.5 mg tablet 1 tab PO DAILY <DIYA Vanegas - Last Filed: 10/02/22 14:09> Interventions: ED Discharge Assessment Last Done: 10/02/22 16:45 <DIYA Vanegas - Last Filed: 10/02/22 14:09> Print Language: Namibian <DIYA Vanegas - Last Filed: 10/02/22 14:09>
[2022-10-02] MEDS: Diphth,Pertus(ACell),Tet Adult 0.5 ML SYRINGE IM (15:50)
== END 2022-10-02 16:47 | disposition home or self-care (01) ==
PROVIDERS: Emergency Provider Emergency Medicine; PCP Internal Medicine
DX: S61.411A Laceration without foreign body of right hand, initial encounter (principal); W26.8XXA Contact with other sharp object(s), not elsewhere classified, initial encounter; Y93.H2 Activity, gardening and landscaping; Y92.017 Garden or yard in single-family (private) house as the place of occurrence of the external cause; Y99.9 Unspecified external cause status
CPT/HCPCS: 12002; 90471; 90715; 99283; 99284

== ENCOUNTER → 2022-11-09 11:41 | Outpatient (BNVA) | payer OTHER, SELFPAY | PROVIDERS: PCP Internal Medicine; Visit Provider Internal Medicine Gastroenterology | DX: K74.60 Unspecified cirrhosis of liver (principal); K59.09 Other constipation; A63.0 Anogenital (venereal) warts; R63.4 Abnormal weight loss; Z86.19 Personal history of other infectious and parasitic diseases; Z86.010 Personal history of colon polyps | CPT/HCPCS: 99212 ==

== ENCOUNTER 2022-11-10 09:41 | Outpatient (REF) | payer OTHER, SELFPAY ==
[2022-11-10 10:22] LABS: Hematocrit 45.3 % (42.0-52.0); Hemoglobin 14.3 g/dl (14.0-18.0); Mean Corpuscular HGB Conc 31.6 g/dl (31.0-36.0); Mean Corpuscular Volume 88.8 fL (80.0-98.0); Mean Platelet Volume 9.6 fL (9.4-12.4); Platelet Count 179 X10*3/uL (160-400); Red Cell Distribution Width 13.2 % (11.0-16.0); White Blood Count 6.1 X10*3/uL (4.8-10.8)
[2022-11-10 11:27] LABS: Alanine Aminotransferase 22 U/L (0-40); Alkaline Phosphatase 75 U/L (39-117); Anion Gap 10 (12-20); Aspartate Amino Transferase 26 U/L (5-37); Bilirubin Direct 0.3 mg/dL (0.0-0.5); Bilirubin Total 1.4 mg/dL (0.0-1.0); Blood Urea Nitrogen 20 mg/dL (9-16); Calcium 9.4 mg/dL (8.4-10.2); Carbon Dioxide 31 mmol/L (22-29); Chloride 107 mmol/L (96-108); Estimated Glomerular Filt Rate > 60; Glucose Random 103 mg/dL (60-115); Potassium 4.4 mmol/L (3.3-5.1); Sodium 144 mmol/L (135-145); Total Protein 6.7 g/dL (6.5-8.0)
== END 2022-11-10 09:42 | disposition home or self-care (01) ==
LOC: HO.LAB 09:41
PROVIDERS: PCP Internal Medicine; Visit Provider Internal Medicine Gastroenterology
DX: K74.60 Unspecified cirrhosis of liver (principal)
CPT/HCPCS: 36415; 80053; 82248; 85027; 85610

== ENCOUNTER 2022-11-24 07:55 | Outpatient (REF) | payer OTHER, SELFPAY ==
--- NOTE | ~2022-11-24 | US_ITS ---
EXAMINATION: US ABDOMEN LIMITED CLINICAL INFORMATION: Unspecified cirrhosis of liver. Screening for HCC. COMPARISON: Ultrasound abdomen limited 06/11/2022. Ultrasound abdomen complete 04/01/2021. TECHNIQUE: Real-time imaging of the right upper quadrant abdominal viscera. FINDINGS: PANCREAS: Normal. LIVER: The liver is normal in size. The liver contour is normal. Parenchymal echogenicity is normal but with a somewhat coarsened appearance. No focal hepatic lesion. There is no intrahepatic biliary duct dilatation seen. GALLBLADDER: Normal. The gallbladder is physiologically distended without evidence of stones, sludge, polyps, wall thickening or pericholecystic fluid. COMMON BILE DUCT: Normal in caliber measuring 0.3 cm in diameter. RIGHT KIDNEY: Normal. No hydronephrosis. No renal calculi or focal parenchymal lesions. The kidney measures 10.2 cm in maximum dimension. FREE FLUID: None. US/US abdomen limited IMPRESSION: No hepatic mass identified.
== END 2022-11-24 07:56 | disposition home or self-care (01) ==
LOC: HO.US 07:55
PROVIDERS: Visit Provider Internal Medicine Gastroenterology
DX: K74.60 Unspecified cirrhosis of liver (principal)
CPT/HCPCS: 76705

== ENCOUNTER 2023-03-14 08:49 | Outpatient (REF) | payer OTHER, SELFPAY ==
[2023-03-14 09:46] LABS: Cholesterol 189 mg/dL (<200); HDL Cholesterol 46 mg/dL (>40); LDL Cholesterol Calculated 129 mg/dL (<100); Triglycerides 72 mg/dL (<150)
[2023-03-14 10:10] LABS: TSH reflex Free T4 1.84 uIU/mL (0.32-4.0); Vitamin D 25-OH Total 28.8 ng/mL (>30)
[2023-03-14 10:57] LABS: Reflex LDLD? No
== END 2023-03-14 08:50 | disposition home or self-care (01) ==
LOC: HO.LAB 08:49
PROVIDERS: PCP Internal Medicine; Visit Provider Internal Medicine
DX: Z00.00 Encounter for general adult medical examination without abnormal findings (principal); I10 Essential (primary) hypertension; R63.4 Abnormal weight loss
CPT/HCPCS: 36415; 80061; 82306; 84443

== ENCOUNTER 2023-05-05 10:52 | Outpatient (AMB) | payer OTHER, SELFPAY ==
--- NOTE | 2023-05-05 11:00 | A.OFFVIS_ITS ---
Intake Vital Signs 05/05/23 11:01 Height 5 ft 8 in Weight 148 lb BMI 22.5 BP 137/77 Blood Pressure Location Lt brachial Position Sitting Pulse 86 Intake Visit Reasons: 6 month follow up Intake Note: Patient follow up for anal condyloma and lab/US results Patient denies any GI issues for today. Highway Patrol Pilot Required: Yes Highway Patrol Pilot Name: Christiano Accompanied by: Self / Same As Patient Allergies bee pollen Allergy (Mild, Verified 05/05/23 10:59) Unknown Medication List - Last Reconciled 05/05/23 by Pedro Rader MD cetirizine 10 mg PO QAM fluticasone propionate 50 mcg/actuation sprays intranasal losartan-hydrochlorothiazide 50-12.5 mg 1 tab PO DAILY HPI 6 month follow up HPI Details GI CLINIC VISIT FOR THIS 72-YEAR-OLD AZERBAIJANI-SPEAKING MALE FOR FOLLOW- UP OF UNEXPLAINED WEIGHT LOSS. LABS IN [facility]:?03/28/20 Reviewed ? 10/13 antibody test for celiac sprue were negative, HIV and antibody testing for syphilis were negative. ? 09/20/19 stool occult blood x3 were negative. ? IMAGING STUDIES: 11/24/22 ABD US SHOWED: LIVER: The liver is normal in size. The liver contour is normal. Parenchymal echogenicity is normal but with a somewhat coarsened appearance. No focal hepatic lesion. There is no intrahepatic biliary duct dilatation seen. 01/16/20 ABD US SHOWED: ? An anechoic cyst in the right hepatic lobe measuring 1 x 0.6 x 0.8 cm and no additional lesions were seen. ?ENDOSCOPIC STUDIES:2020 COLONOSCOPY SHOWED: Rectum:? A 2 x 2 cms flat polyp at the anal verge raised with 2 cc of Orise solution (submucosal injection) and removed piece meal with a hot snare. Residual 1 cms polyp from past polypectomy - ablated with a hot snare. Ano-rectum:? Moderate internal hemorrhoids Two polyps removed Moderate diverticulosis seen in the sigmoid colon Moderate hemorrhoids on retroflexed exam. Plan:? Repeat Colonoscopy interval based on path results - in 2-3 years if polyps are adenomatous and due to hx of adenomatous colon polyps. BIOPSIES SHOWED: Rectum, polypectomy:? ?10/30/19 EGD AND COLONOSCOPY SHOWED: ? STOMACH: Moderate diffuse gastric erythema with smal amounts of heme. Biopsies ? were obtained. A few 5 to 10 mm benign appearing nodules with central ? erosions in the antrum - biopsied. A linear erosion in the antrum. ? Three polyps removed during colonoscopy- a 4th polyp was not removed due to excessive length of proocedure ? Moderate to severe diverticulosis seen in the left colon ? Moderate hemorrhoids on retroflexed exam. ?BIOPSIES SHOWED: ? A. Small bowel, biopsies: Chronic duodenitis with foveolar metaplasia and without ? increased intraepithelial lymphocytes; negative for dysplasia/malignancy. ? B. Stomach, nodules, biopsies: Gastric mucosa with moderate active gastritis; positive ? for Helicobacter pylori organisms consistent with H. pylori gastritis; negative for ? intestinal metaplasia/dysplasia. ? C. Stomach, body, biopsies: Gastric mucosa with moderate active gastritis; positive ? for Helicobacter pylori organisms consistent with H. pylori gastritis; negative for ? intestinal metaplasia/dysplasia. ? D. Colon, ileocecal valve polyp, polypectomy: Fragments of tubular adenoma. ? E. Colon, sigmoid polyp, polypectomy: Fragments of hyperplastic polyp. ? F. Rectum, polyp, polypectomy: Condyloma acuminatum (AIN 1). ? Pt had fulgration of Anal condyloma on 01/08/[address] Ragsdale. TODAY'S VISIT ?[facility] [place] [employer],?Christiano Denies abd pain and wt has been stable Lab tests and abd US results were reviewed with the patient. Appetite is good and has been eating very well ?PAST VISIT: Has been gaining a few lbs and weighed 147 lbs today (Increased from .141 lbs10 months ago) ? Denies problems with constipation. ? Complains of mild constipation and was prescribed something and has not been taking it. ? Has a BM 2-3 times a day and stools are sometimes soft and sometimes hard. ? Pt complains of symptoms of unintentional weight loss over the past few yrs - 154 lbs to 133 lbs on 09/14/19. ? Current weight is 132. ? Has been less active since he moved here. ? Patient denies abdominal pain, change in bowel habits, black stools or re ctal bleeding - can have occasional diarrhea. ? Denies dysphagia, heartburn, nausea or vomiting or change in appetite. ? Patient denies major cardiac or pulmonary problems, history of loud s noring was sleep apnea. ? He denies having any surgeries in the past. ? He denies being on chronic anticoagulation. ? Pt denies having an EGD or a Colonoscopy in the past. ? Patient denies known family history of colon polyps, colon cancer or other GI malignancy. ? Positive FH of diabetes in multiple?cousins PFSH Medical History (Updated 05/05/23 @ 11:30 by Pedro Rader MD) Cirrhosis Anal intraepithelial neoplasia I Chronic constipation History of Helicobacter pylori infection History of adenomatous polyp of colon Anal condyloma Hypertension Weight loss Surgical History (Updated 05/05/23 @ 11:08 by Pedro Rader MD) History of hemorrhoidectomy History of esophagogastroduodenoscopy (EGD) Hx of colonoscopy Family History Father Liver problem Mother Alzheimer disease Sister History of breast cancer Social History Alcohol intake: current Alcohol intake frequency: does not drink Patient Tobacco Use Status: Former Tobacco user Review of Systems Const All systems reviewed & are unremarkable except as noted in HPI and below Physical Exam Vital Signs: Last Vital Signs Pulse 86 05/05/23 11:01 BP 137/77 05/05/23 11:01 BMI result Body Mass Index 22.5 Const General: healthy appearing and no acute distress Nutritional Appearance: average body habitus Orientation/consciousness: patient oriented x3 Limitations: language barrier HEENT Head: Yes normal to inspection Ears: hearing grossly normal bilaterally Eyes Sclerae: sclerae normal Pupils: Equal, round and reactive pupils present Neck Neck: Yes normal visual inspection Chest Chest palpation & inspection: normal inspection of the chest Resp Effort & Inspection: normal respiratory effort Auscultation: clear to auscultation bilaterally Cardio Palpation: normal PMI Rate: regular rate Rhythm: regular rhythm Heart sounds: S1 normal heart sound present, S2 normal heart sound present and no murmurs GI Palpation (GI): Soft to palpation, nontender and No hepatosplenomegaly present Auscultation: normal bowel sounds Rectal Exam - Male: Yes deferred Skin General skin exam: no rashes or lesions noted Neuro General: patient oriented x3, gait normal and moves all extremities Cranial nerves: Yes Equal, round and reactive pupils present Psych Appearance: grossly normal Mental Status: mental status grossly normal Assessment & Plan Assessment & Plan (1) Cirrhosis of liver without ascites: Code(s): K74.60 - Unspecified cirrhosis of liver (2) Anal condyloma: Comment: 01/08/20 Pt underwent EUA with excision of hemorrhoid with an anal condyloma by Dr Ragsdale and he is scheduled for a FU anoscopy in 12 months. Code(s): A63.0 - Anogenital (venereal) warts (3) Chronic constipation: Code(s): K59.09 - Other constipation (4) History of Helicobacter pylori infection: Comment: Pt was treated with amoxicillin, clarithromycin and twice daily omeprazole in Oct, 2019. H PYLORI AG, STOOL - negative on 01/16/20 Code(s): Z86.19 - Personal history of other infectious and parasitic diseases (5) History of adenomatous polyp of colon: Comment: 10/30/2019 A 12-15 mm adenomatous polyp overlying the ICV was removed Repeat colonoscopy is advised in 1 year to check polypectomy site in the cecum. 04/16 Two rectal polyps removed during colonoscopy. Condylomata acuminata on bx. FU colon in 3 yrs (due 03/2024). Code(s): Z86.010 - Personal history of colonic polyps Plan 72-year-old Thai-speaking male followed in GI for evaluation of unexplained weight loss without any change in his p.o. intake. Patient denied any upper or lower GI symptoms and stool hemoccults x3 were negative. He admitted to cold intolerance and increased urinary frequency. Lab evaluation was negative for diabetes, thyroid disease, HIV and syphilis. 10/30/19 EGD showed gastritis related to Helicobacter pylori infection. Pt was treated and FU stool antigen was negative for H Pylori. An adenomatous polyp was removed during same-day colonoscopy. 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 Cirrhosis likely due to past EtOH abuse.? MELD score is 8 PT admits to past heavy ETOH abuse and quitted in 1983. Hepatitis B serologies and celiac serologies were normal. FU in 6 months. Coding Level of Care Code Est Pt Level 4 (43755) Diagnoses Cirrhosis of liver without ascites K74.60 Anal condyloma A63.0 Chronic constipation K59.09 History of Helicobacter pylori infection Z86.19 History of adenomatous polyp of colon Z86.010 Time Spent (min) 18
[2023-05-05 11:01] VITALS: BP 137/77; PULSE 86; BMI 22.5
== END 2023-05-05 11:23 | disposition home or self-care (01) ==
PROVIDERS: Visit Provider Internal Medicine Gastroenterology
DX: K74.60 Unspecified cirrhosis of liver (principal); A63.0 Anogenital (venereal) warts; K59.09 Other constipation; Z86.19 Personal history of other infectious and parasitic diseases; Z86.010 Personal history of colon polyps
CPT/HCPCS: 99214

== ENCOUNTER → 2023-05-05 10:52 | Outpatient (BNVA) | payer OTHER, SELFPAY | PROVIDERS: Visit Provider Internal Medicine Gastroenterology | DX: K74.60 Unspecified cirrhosis of liver (principal); K59.09 Other constipation; A63.0 Anogenital (venereal) warts; Z86.19 Personal history of other infectious and parasitic diseases; Z86.010 Personal history of colon polyps | CPT/HCPCS: 99212 ==

== ENCOUNTER 2023-06-02 09:57 | Outpatient (AMB) | payer OTHER, SELFPAY ==
--- NOTE | 2023-06-02 09:57 | A.OFFVIS_ITS ---
Intake Vital Signs 06/02/23 10:05 Height 5 ft 8 in Weight 150 lb BMI 22.8 BP 139/66 Blood Pressure Location Rt brachial Position Sitting Pulse 81 Intake Visit Reasons: one year follow up anal condyloma Intake Note: This patient presents for a one year follow-up assessment for anal condyloma. Patient c/o; reports no rectal bleeding, pain, pressure or discomfort. Supervising Fire Marshal Required: Yes Supervising Fire Marshal Language: Media Sales Representative Name: Sophie Information Interpreted: non-clinical & clinical Accompanied by: Self / Same As Patient Allergies bee pollen Allergy (Mild, Verified 06/02/23 10:06) Unknown Medication List - Last Reconciled 06/02/23 by Syd Ragsdale MD cetirizine 10 mg PO QAM fluticasone propionate 50 mcg/actuation sprays intranasal losartan-hydrochlorothiazide 50-12.5 mg 1 tab PO DAILY HPI one year follow up anal condyloma HPI Details He has a history of an anal condyloma with AIN I. He is here for a surveillance endoscopy. He denies any complaints with regards to his anus at this time. He denies bleeding or pain. [facility] Medical History Cirrhosis Anal intraepithelial neoplasia I Chronic constipation History of Helicobacter pylori infection History of adenomatous polyp of colon Anal condyloma Hypertension Weight loss Surgical History History of hemorrhoidectomy History of esophagogastroduodenoscopy (EGD) Hx of colonoscopy Family History Father Liver problem Mother Alzheimer disease Sister History of breast cancer Social History Alcohol intake: current Alcohol intake frequency: does not drink Patient Tobacco Use Status: Former Tobacco user Review of Systems Const Denies chills and Denies fever(s) Card Denies chest pain, Denies dyspnea and Denies dyspnea on exertion Resp Denies cough, Denies dyspnea and Denies dyspnea on exertion GI Denies hematochezia and Denies change in bowel habits Denies hematuria and Denies difficulty urinating Musc Denies back pain and Denies limited range of motion Neuro Denies focal weakness and Denies convulsions Psych Denies depression and Denies mood swings Physical Exam Vital Signs: Last Vital Signs Pulse 81 06/02/23 10:05 BP 139/66 06/02/23 10:05 BMI result Body Mass Index 22.8 Const General: comfortable and no acute distress Orientation/consciousness: patient oriented x3 Neck Neck: Yes no lymphadenopathy Resp Auscultation: clear to auscultation bilaterally Cardio Rhythm: regular rhythm GI Palpation (GI): Soft to palpation, nontender and no guarding Neuro General: patient oriented x3 Office Procedures Anoscopy He was in walter-knife position. The anoscope was gently inserted. A full examination of the anal canal was done. There were no lesions or any condylomas seen. There was no abnormality in the anal lining. There was no bleeding. There was no fissure. There was no induration on digital exam [id number] Assessment & Plan Assessment & Plan (1) Anal intraepithelial neoplasia I: Code(s): K62.82 - Dysplasia of anus Plan: Current rectal exam and anoscopy does not reveal any recurrent lesions or any suggestion of dysplasia. I do not see ulcers or any polyps. There are no condylomas. I will see him again in a year for repeat anoscopy. Coding Level of Care Code Est Pt Level 3 (13937) Diagnoses Anal intraepithelial neoplasia I K62.82 CPT Codes Details - CPT: [id number] ([id number])
[2023-06-02 10:05] VITALS: BP 139/66; PULSE 81; BMI 22.8
== END 2023-06-02 10:14 | disposition home or self-care (01) ==
PROVIDERS: Visit Provider Surgery
DX: K62.82 Dysplasia of anus (principal)
CPT/HCPCS: 46600; 99213

== ENCOUNTER → 2023-06-02 09:57 | Outpatient (BNVA) | payer OTHER, SELFPAY | PROVIDERS: Visit Provider Surgery | DX: K62.82 Dysplasia of anus (principal) | CPT/HCPCS: 46600; 99212 ==

== ENCOUNTER 2023-09-28 08:26 | Outpatient (REF) | payer OTHER, SELFPAY ==
[2023-09-28 09:49] LABS: Cholesterol 172 mg/dL (<200); HDL Cholesterol 40 mg/dL (>40); LDL Cholesterol Calculated 118 mg/dL (<100); Triglycerides 71 mg/dL (<150)
[2023-09-28 09:58] LABS: TSH reflex Free T4 1.36 uIU/mL (0.32-4.0); Vitamin D 25-OH Total 19.2 ng/mL (>30)
[2023-09-28 11:43] LABS: Reflex LDLD? No
== END 2023-09-28 08:27 | disposition home or self-care (01) ==
LOC: HO.LAB 08:26
PROVIDERS: PCP Internal Medicine; Visit Provider Internal Medicine
DX: Z00.00 Encounter for general adult medical examination without abnormal findings (principal); E78.00 Pure hypercholesterolemia, unspecified; I10 Essential (primary) hypertension
CPT/HCPCS: 36415; 80061; 82306; 84443

== ENCOUNTER 2023-11-10 09:45 | Outpatient (AMB) | payer OTHER, SELFPAY ==
--- NOTE | 2023-11-10 09:54 | A.OFFVIS_ITS ---
Vital Signs 11/10/23 09:56 Height 5 ft 8 in Weight 150 lb BMI 22.8 BP 137/60 Blood Pressure Location Lt brachial Position Sitting Pulse 75 Intake Visit Reasons: anal condyloma Intake Note: Patient follow up for Anal condyloma Patient denies any GI issues. Tool Room Supervisor Required: Yes Tool Room Supervisor Name: [facility] Allergies bee pollen Allergy (Mild, Verified 11/10/23 09:54) Unknown Medication List - Last Reconciled 11/10/23 by Pedro Rader MD cetirizine 10 mg PO QAM fluticasone propionate 50 mcg/actuation sprays intranasal losartan-hydrochlorothiazide 50-12.5 mg 1 tab PO DAILY HPI HPI anal condyloma: Details: GI CLINIC VISIT FOR THIS 73-YEAR-OLD LIBERIAN-SPEAKING MALE FOR FOLLOW-UP OF UNEXPLAINED WEIGHT LOSS. [facility] Reviewed ? 10/13 antibody test for celiac sprue were negative, HIV and antibody testing for syphilis were negative. ? 09/20/19 stool occult blood x3 were negative. ? IMAGING STUDIES: 11/24/22 ABD US SHOWED: LIVER: The liver is normal in size. The liver contour is normal. Parenchymal echogenicity is normal but with a somewhat coarsened appearance. No focal hepatic lesion. There is no intrahepatic biliary duct dilatation seen. 01/16/20 ABD US SHOWED:? An anechoic cyst in the right hepatic lobe measuring 1 x 0.6 x 0.8 cm and no additional lesions were seen. ?ENDOSCOPIC STUDIES:2020 COLONOSCOPY SHOWED: Rectum:? A 2 x 2 cms flat polyp at the anal verge raised with 2 cc of Orise solution (submucosal injection) and removed piece meal with a hot snare. Residual 1 cms polyp from past polypectomy - ablated with a hot snare. Ano-rectum:? Moderate internal hemorrhoids Two polyps removed Moderate diverticulosis seen in the sigmoid colon Moderate hemorrhoids on retroflexed exam. Plan:? Repeat Colonoscopy interval based on path results - in 2-3 years if polyps are adenomatous and due to hx of adenomatous colon polyps. BIOPSIES SHOWED: Rectum, polypectomy:? ?10/30/19 EGD AND COLONOSCOPY SHOWED: ? STOMACH: Moderate diffuse gastric erythema with smal amounts of heme. Biopsies ? were obtained. A few 5 to 10 mm benign appearing nodules with central ? erosions in the antrum - biopsied. A linear erosion in the antrum. ? Three polyps removed during colonoscopy- a 4th polyp was not removed due to excessive length of proocedure ? Moderate to severe diverticulosis seen in the left colon ? Moderate hemorrhoids on retroflexed exam. ?BIOPSIES SHOWED: ? A. Small bowel, biopsies: Chronic duodenitis with foveolar metaplasia and without ? increased intraepithelial lymphocytes; negative for dyspl christianne/malignancy. ? B. Stomach, nodules, biopsies: Gastric mucosa with moderate active gastritis; positive ? for Helicobacter pylori organisms consistent with H. pylori gastritis; negative for ? intestinal metaplasia/dysplasia. ? C. Stomach, body, biopsies: Gastric mucosa with moderate active gastritis; positive ? for Helicobacter pylori organisms consistent with H. pylori gastritis; negative for ? intestinal metaplasia/dysplasia. ? D. Colon, ileocecal valve polyp, polypectomy: Fragments of tubular adenoma. ? E. Colon, sigmoid polyp, polypectomy: Fragments of hyperplastic polyp. ? F. Rectum, polyp, polypectomy: Condyloma acuminatum (AIN 1). ? Pt had fulgration of Anal condyloma on 01/08/[address] Ragsdale. 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 Appetite is good and has been eating very well ?PAST VISIT: Has been gaining a few lbs and weighed 147 lbs today (Increased from .141 lbs10 months ago) ? Denies problems with constipation. ? Complains of mild constipation and was prescribed something and has not been taking it. ? Has a BM 2-3 times a day and stools are sometimes soft and sometimes hard. ? Pt complains of symptoms of unintentional weight loss over the past few yrs - 154 lbs to 133 lbs on 09/14/19. ? Current weight is 132. ? Has been less active since he moved here. ? Patient denies abdominal pain, change in bowel habits, black stools or rectal bleeding - can have occasional diarrhea. ? Denies dysphagia, heartburn, nausea or vomiting or change in appetite. ? Patient denies major cardiac or pulmonary problems, history of loud snoring was sleep apnea. ? He denies having any surgeries in the past. ? He denies being on chronic anticoagulation. ? Pt denies having an EGD or a Colonoscopy in the past. ? Patient denies known family history of colon polyps, colon cancer or other GI malignancy. ? Positive FH of diabetes in multiple?cousins PFSH Medical History Cirrhosis Anal intraepithelial neoplasia I Chronic constipation History of Helicobacter pylori infection History of adenomatous polyp of colon Anal condyloma Hypertension Weight loss Surgical History History of hemorrhoidectomy History of esophagogastroduodenoscopy (EGD) Hx of colonoscopy Family History Father Liver problem Mother Alzheimer disease Sister History of breast cancer Social History Alcohol intake: current Alcohol intake frequency: does not drink Patient Tobacco Use Status: Former Tobacco user Review of Systems Const All systems reviewed & are unremarkable except as noted in HPI and below Physical Exam Vital Signs: Last Vital Signs Pulse 75 11/10/23 09:56 BP 137/60 11/10/23 09:56 BMI result Body Mass Index 22.8 Const General: healthy appearing and no acute distress Nutritional Appearance: average body habitus Orientation/consciousness: patient oriented x3 Limitations: language barrier HEENT Head: Yes normal to inspection Ears: hearing grossly normal bilaterally Eyes Sclerae: sclerae normal Pupils: Equal, round and reactive pupils present Neck Neck: Yes normal visual inspection Chest Chest palpation & inspection: normal inspection of the chest Resp Effort & Inspection: normal respiratory effort Auscultation: clear to auscultation bilaterally Cardio Palpation: normal PMI Rate: regular rate Rhythm: regular rhythm Heart sounds: S1 normal heart sound present, S2 normal heart sound present and no murmurs GI Palpation (GI): Soft to palpation, nontender and No hepatosplenomegaly present Auscultation: normal bowel sounds Rectal Exam - Male: Yes deferred Skin General skin exam: no rashes or lesions noted Neuro General: patient oriented x3, gait normal and moves all extremities Cranial nerves: Yes Equal, round and reactive pupils present Psych Appearance: grossly normal Mental Status: mental status grossly normal Assessment & Plan Assessment & Plan (1) Anal condyloma: Comment: 01/08/20 Pt underwent EUA with excision of hemorrhoid with an anal condyloma by Dr Ragsdale and he is scheduled for a FU anoscopy in 12 months. Code(s): A63.0 - Anogenital (venereal) warts Category: Medical (2) History of adenomatous polyp of colon: Comment: 10/30/2019 A 12-15 mm adenomatous polyp overlying the ICV was removed Repeat colonoscopy is advised in 1 year to check polypectomy site in the cecum. 04/16 Two rectal polyps removed during colonoscopy. Condylomata acuminata on bx. FU colon in 3 yrs (due 03/2024). Code(s): Z86.010 - Personal history of colonic polyps Category: Medical (3) History of Helicobacter pylori infection: Comment: Pt was treated with amoxicillin, clarithromycin and twice daily omeprazole in Oct, 2019. H PYLORI AG, STOOL - negative on 01/16/20 Code(s): Z86.19 - Personal history of other infectious and parasitic diseases Category: Medical (4) Chronic constipation: Code(s): K59.09 - Other constipation Category: Medical (5) Cirrhosis of liver without ascites: Code(s): K74.60 - Unspecified cirrhosis of liver Category: Medical Plan 73-year-old Qatari-speaking male followed in GI for evaluation of unexplained weight loss without any change in his p.o. intake. Patient denied any upper or lower GI symptoms and stool hemoccults x3 were negative. He admitted to cold intolerance and increased urinary frequency. Lab evaluation was negative for diabetes, thyroid disease, HIV and syphilis. 10/30/19 EGD showed gastritis related to Helicobacter pylori infection. Pt was treated and FU stool antigen was negative for H Pylori. An adenomatous polyp was removed during same-day colonoscopy. 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 Cirrhosis likely due to past EtOH abuse.? MELD score is 8 PT admits to past heavy ETOH abuse and quitted in 1983. Hepatitis B serologies, JORGE and celiac serologies were normal 11/10/23 Pt was advised to schedule an Abd US and a colonoscopy for FU of colon polyps FU in 6 months Orders: Orders US abdomen limited Today K74.60 - Unspecified cirrhosis of liver Medications: New bisacodyl (Dulcolax (bisacodyl)) Take 2 tablets at 12 pm daily starting 2 days before colonoscopy appointment 10 mg (2 x 5 mg) PO ONCE 2 days 4 tabs 0RF colon prep polyethylene glycol 3350 (Miralax) Mix Miralax with 64 oz(8 cups) of Crystal light. Take 2 tablets of Dulcolax qt 12 pm. Wait to have your 1st bowel movement, then begin drinking Miralax. Drink a glass of Miralax every 10-15 minutes until you are finished. You will drink at least another 4 cups of clear liquid of your choice over the next 2 hours. Please drink as many clear liquids as possible You may have clear liquids up to four hours before your procedure 17 grams PO DAILY 1 day 238 grams 0RF colon prep cholecalciferol (vitamin D3) 250 mcg PO 2XW 90 days 26 caps 1RF E55.9 - Vitamin D deficiency, unspecified Coding Level of Care Code Est Pt Level 4 (51646) Diagnoses Anal condyloma A63.0 History of adenomatous polyp of colon Z86.010 History of Helicobacter pylori infection Z86.19 Chronic constipation K59.09 Cirrhosis of liver without ascites K74.60 Time Spent (min) 21
[2023-11-10 09:56] VITALS: BP 137/60; PULSE 75; BMI 22.8
== END 2023-11-10 10:28 | disposition home or self-care (01) ==
PROVIDERS: PCP Internal Medicine; Visit Provider Internal Medicine Gastroenterology
DX: A63.0 Anogenital (venereal) warts (principal); Z86.010 Personal history of colon polyps; Z86.19 Personal history of other infectious and parasitic diseases; K59.09 Other constipation; K74.60 Unspecified cirrhosis of liver
CPT/HCPCS: 99214

== ENCOUNTER → 2023-11-10 09:45 | Outpatient (BNVA) | payer OTHER, SELFPAY | PROVIDERS: PCP Internal Medicine; Visit Provider Internal Medicine Gastroenterology | DX: K59.09 Other constipation (principal); A63.0 Anogenital (venereal) warts; K74.60 Unspecified cirrhosis of liver; Z86.010 Personal history of colon polyps; Z86.19 Personal history of other infectious and parasitic diseases | CPT/HCPCS: 99212 ==

== ENCOUNTER 2023-11-25 08:35 | Outpatient (REF) | payer OTHER, SELFPAY ==
--- NOTE | ~2023-11-25 | US_ITS ---
EXAMINATION: US ABDOMEN LIMITED CLINICAL INFORMATION: Unspecified cirrhosis of liver. Screening for HCC. COMPARISON: Ultrasound abdomen limited 11/24/2022 and 06/11/2022. TECHNIQUE: Real-time imaging of the right upper quadrant abdominal viscera. Note: Patient had coffee in the morning. FINDINGS: PANCREAS: Normal. LIVER: The liver is normal in size. The liver contour is normal. There is mild diffuse increased liver parenchymal echogenicity, consistent with mild hepatic steatosis. The parenchyma is slightly heterogeneous. No focal hepatic lesion. There is no intrahepatic biliary duct dilatation seen. GALLBLADDER: Normal. The gallbladder is physiologically distended without evidence of stones, sludge, polyps, wall thickening or pericholecystic fluid. No sonographic Max's sign. COMMON BILE DUCT: Normal in caliber measuring 0.3 cm in diameter. RIGHT KIDNEY: Normal. No hydronephrosis. No renal calculi or focal parenchymal lesions. The kidney measures 10.2 cm in maximum dimension. FREE FLUID: None. US/US abdomen limited IMPRESSION: Mild hepatic steatosis.
== END 2023-11-25 08:36 | disposition home or self-care (01) ==
LOC: HO.US 08:35
PROVIDERS: PCP Internal Medicine; Visit Provider Internal Medicine Gastroenterology
DX: K74.60 Unspecified cirrhosis of liver (principal)
CPT/HCPCS: 76705

== ENCOUNTER 2024-05-04 08:24 | Day surgery (SDC) | payer OTHER, SELFPAY ==
[2024-05-02 13:06] VITALS: BMI 22.8
--- NOTE | 2024-05-03 09:49 | HO.ANESPROP2 ---
Documented by User: Niurka Ly NP 05/03/24 09:53 HPI - Anesthesia Eval Consult details Narrative: 73yo M for Colonoscopy (Adult Scope) Hx cirrhosis, 10/2023 US showed only Mild hepatic steatosis. Labs DOS - none since 2022 PMFSH Active Problems Active Problems: All Active Problems Balanitis (Acute) Cirrhosis of liver without ascites (Acute) Anal intraepithelial neoplasia I (Acute) Anal condyloma (Acute) Chronic constipation (Acute) History of Helicobacter pylori infection (Acute) History of adenomatous polyp of colon (Acute) Weight loss (Acute) Past Medical History Medical History Cirrhosis Anal intraepithelial neoplasia I Chronic constipation History of Helicobacter pylori infection History of adenomatous polyp of colon Anal condyloma Hypertension Weight loss Family History Family History Father Liver problem Mother Alzheimer disease Sister History of breast cancer Family history of problems with anesthesia: No Surgical History Surgical History History of hemorrhoidectomy History of esophagogastroduodenoscopy (EGD) Hx of colonoscopy History of Problems with Anesthesia: No Social History Social History Are you a primary patient care secretary to a significant other at home: No Do you presently have visiting nurse or other home services: No Alcohol intake: current Alcohol intake frequency: does not drink Patient Tobacco Use Status: Former Tobacco user Tobacco use type: Cigarette Smoked in Last 30 Days: No Use of substances other than those prescribed or required for medical reasons: No Have you been hit, kicked, punched, or otherwise hurt by someone within the past year? If so, by whom?: No Are you DNR?: No Advance Directives: No Advance Directives Information Provided: No Advance Directives on File: No Recently lost weight without trying: No How much weight loss: Not applicable Eating poorly because of decreased appetite: No Nutrition screen score: 0 Nutrition Risks: No Nutritional Risk Poor oral hygiene: Yes (upper full denture, lower partial denture) Meds Allergies Allergy/AdvReac Type Severity Reaction Status Date / Time bee pollen Allergy Mild Unknown Verified 11/10/23 09:54 Home Medications ?Medication ?Instructions ?Recorded ?Confirmed ?Last Taken ?Type losartan 50 mg-hydrochlorothiazide 1 tab PO DAILY 04/24/20 05/04/24 05/04/24 History 12.5 mg tablet cetirizine 10 mg tablet 10 mg PO QAM 11/09/22 05/02/24 Unknown History fluticasone propionate 50 1 spray intranasal DAILY 11/09/22 05/04/24 Unknown History mcg/actuation nasal spray,suspension ergocalciferol (vitamin D2) 1,250 1,250 mcg PO QWEEK 05/04/24 05/04/24 Unknown History mcg (50,000 unit) capsule Exam Height,Weight and Vital Signs: Height 5 ft 8 in Weight 68.039 kg Narrative Narrative: US abdomen limited 10/2023 IMPRESSION: Mild hepatic steatosis. Assessment and Plan Assessment Anesthesia Assessment: Chart Reviewed Final Anesthetic Review Family History of Problems with Anesthesia: No History of Problems with Anesthesia: No Documented by User: Jennifer Martinez MD 05/04/24 10:29 [facility] Past Medical History Medical History Cirrhosis Anal intraepithelial neoplasia I Chronic constipation History of Helicobacter pylori infection History of adenomatous polyp of colon Anal condyloma Hypertension Weight loss Family History Family History Father Liver problem Mother Alzheimer disease Sister History of breast cancer Family history of problems with anesthesia: No Surgical History Surgical History History of hemorrhoidectomy History of esophagogastroduodenoscopy (EGD) Hx of colonoscopy History of Problems with Anesthesia: No Social History Social History Are you a primary patient care secretary to a significant other at home: No Do you presently have visiting nurse or other home services: No Alcohol intake: current Alcohol intake frequency: does not drink Patient Tobacco Use Status: Former Tobacco user Tobacco use type: Cigarette Smoked in Last 30 Days: No Use of substances other than those prescribed or required for medical reasons: No Have you been hit, kicked, punched, or otherwise hurt by someone within the past year? If so, by whom?: No Are you DNR?: No Advance Directives: No Advance Directives Information Provided: No Advance Directives on File: No Recently lost weight without trying: No How much weight loss: Not applicable Eating poorly because of decreased appetite: No Nutrition screen score: 0 Nutrition Risks: No Nutritional Risk Poor oral hygiene: Yes (upper full denture, lower partial denture) Meds Allergies Allergy/AdvReac Type Severity Reaction Status Date / Time bee pollen Allergy Mild Unknown Verified 11/10/23 09:54 Home Medications ?Medication ?Instructions ?Recorded ?Confirmed ?Last Taken ?Type losartan 50 mg-hydrochlorothiazide 1 tab PO DAILY 04/24/20 05/04/24 05/04/24 History 12.5 mg tablet cetirizine 10 mg tablet 10 mg PO QAM 11/09/22 05/02/24 Unknown History fluticasone propionate 50 1 spray intranasal DAILY 11/09/22 05/04/24 Unknown History mcg/actuation nasal spray,suspension ergocalciferol (vitamin D2) 1,250 1,250 mcg PO QWEEK 05/04/24 05/04/24 Unknown History mcg (50,000 unit) capsule Exam Height,Weight and Vital Signs: Height 5 ft 8 in Weight 68.039 kg Vital Signs Temp Pulse Resp BP Pulse Ox O2 Del Method 05/04/24 09:31 98.4 F 89 16 128/69 99 Room Air Pertinent Lab Results Pertinent Lab Results: Lab Results 05/04/24 Range/Units 09:33 WBC 4.4 L (4.8-10.8) X10*3/uL RBC 5.09 (4.60-5.80) X10*6/uL Hgb 14.5 (14.0-18.0) g/dl Hct 43.3 (42.0-52.0) % MCV 85.1 (80.0-98.0) fL MCH 28.5 (27.0-33.0) pg MCHC 33.5 (31.0-36.0) g/dl RDW 12.9 (11.0-16.0) % Plt Count 144 L (160-400) X10*3/uL MPV 9.1 L (9.4-12.4) fL Absolute Nucleated RBC 0.000 (0.0-0.012) X10*3/uL Nucleated RBC % (auto) 0.0 (0.0-0.2) /100WBC PT 13.1 H (10.9-12.4) SEC INR 1.1 (0.9-1.1) Sodium 138 (135-145) mmol/L Potassium 3.6 (3.3-5.1) mmol/L Chloride 104 (96-108) mmol/L Carbon Dioxide 23 (22-29) mmol/L Anion Gap 15 (12-20) BUN 14 (9-16) mg/dL Creatinine 1.18 (0.5-1.4) mg/dL Estim Creat Clear Calc 50.8 Estimated GFR > 60 Fasting Glucose 91 (60-99) mg/dL Calcium 9.6 (8.4-10.2) mg/dL Total Bilirubin 1.8 H (0.0-1.0) mg/dL AST 30 (5-37) U/L ALT 16 (0-40) U/L Alkaline Phosphatase 64 (39-117) U/L Total Protein 7.2 (6.5-8.0) g/dL Albumin 4.2 (3.5-5.0) g/dL Airway Mallampati Class: II TM Dist: >3cm Neck ROM: Full Denture: Upper Partial: Lower Loose/Missing/Broken Teeth: Yes (Bottom front tooth loose. Full denture top. Bottom partial. Denies broken teeth) Heart: RRR Lungs: CTAB Assessment and Plan Assessment Anesthesia Assessment: Anesthesia Plan Discussed and Chart Reviewed Final Anesthetic Review Family History of Problems with Anesthesia: No History of Problems with Anesthesia: No NPO: Yes ASA Class: III Final Preanesthetic Review: No Changes in Pt Med Stat, Meds/Allgs Chart Reviewed, Consent Obtained/Reviewed and Anes Risks/Benef Reviewed Patient Risk: Intermediate Procedure Risk: Low Assessment/Block/Sedation in SS: Assess/Block/Sedation-SS Anesthetic Plan Anesthetic Plan: TIVA Disposition: Standard PACU
--- NOTE | 2024-05-04 09:10 | MHC.SHP ---
Pre-Procedural Eval Section A - 24 Hr Update-Section A only Date of Service: 05/04/24 The patient is an INPATIENT: No The patient has been examined within 24 hours of the surgical procedure. The History & Physical has been completed within 30 days and I have reviewed it.: No Section B - Complete if H&P > 30 days Chief Complaint: Surveillance for colon polyps Relevant Family History (Specify if Yes): No Relevant Social History: Tobacco Use (Former smoker) Present Medications: see Short Stay Collaborative assessment Medical History: Significant History (Cirrhosis Anal intraepithelial neoplasia I Chronic constipation History of Helicobacter pylori infection History of adenomatous polyp of colon Anal condyloma Hypertension Weight loss) History of Previous Operations: Relevant previous surgery/procedure and date(s) (History of hemorrhoidectomy History of esophagogastroduodenoscopy (EGD) Hx of colonoscopy) Allergies: Allergies Allergy/AdvReac Type Severity Reaction Status Date / Time bee pollen Allergy Mild Unknown Verified 11/10/23 09:54 Review of Systems Sugical H&P ROS: Negative: Constitution, Cardiovascular, Respiratory and Gastrointestinal Exam Surgical H&P Exam: Normal: Heart, Normal: Lungs, Normal: Extremities and Normal: Abdomen Plan Diagnosis/Plan: Unchanged I have reviewed the history and physical and performed a pertinent physical examination on my patient. No changes have occurred unless specified. Time Spent With Patient Time: Total time managing care of this patient today ____ minutes.
[2024-05-04 09:26] VITALS: BMI 19.8
[2024-05-04 09:31] VITALS: BP 128/69; PULSE 89; RESP 16; TEMP 36.9; O2SAT 99
[2024-05-04 09:40] LABS: Hematocrit 43.3 % (42.0-52.0); Hemoglobin 14.5 g/dl (14.0-18.0); Mean Corpuscular HGB Conc 33.5 g/dl (31.0-36.0); Mean Corpuscular Hemoglobin 28.5 pg (27.0-33.0); Mean Corpuscular Volume 85.1 fL (80.0-98.0); Mean Platelet Volume 9.1 fL (9.4-12.4); Platelet Count 144 X10*3/uL (160-400); Red Blood Count 5.09 X10*6/uL (4.60-5.80); Red Cell Distribution Width 12.9 % (11.0-16.0); White Blood Count 4.4 X10*3/uL (4.8-10.8)
[2024-05-04] MEDS: Lactated Ringers 1,000 ML 100 ML IVCONT (09:41)
[2024-05-04 09:46] LABS: INTERNATIONAL NORM RATIO 1.1 (0.9-1.1); Prothrombin Time 13.1 SEC (10.9-12.4)
[2024-05-04 10:02] LABS: Alanine Aminotransferase 16 U/L (0-40); Albumin Level 4.2 g/dL (3.5-5.0); Alkaline Phosphatase 64 U/L (39-117); Anion Gap 15 (12-20); Aspartate Amino Transferase 30 U/L (5-37); Bilirubin Total 1.8 mg/dL (0.0-1.0); Blood Urea Nitrogen 14 mg/dL (9-16); Calcium 9.6 mg/dL (8.4-10.2); Carbon Dioxide 23 mmol/L (22-29); Chloride 104 mmol/L (96-108); Creatinine Clr Calc Pharmacy 50.8; Estimated Glomerular Filt Rate > 60; Glucose Fasting 91 mg/dL (60-99); Potassium 3.6 mmol/L (3.3-5.1); Sodium 138 mmol/L (135-145); Total Protein 7.2 g/dL (6.5-8.0)
--- NOTE | 2024-05-04 10:47 | HO.OPN-COLON ---
Colonoscopy Operative Note Operative Note Date of Service: 05/04/24 Narrative: COLONOSCOPY TILL CECUM WITH SNARE POLYPECTOMY AND SUBMUCOSAL INJECTION Pre-op diagnosis: Surveillance for colon polyps. Post-op diagnosis:? Colon polyps, Diverticulosis, hemorrhoids Endoscopist:? Pedro Rader MD Anesthesia:?MAC Consent: Indications for the procedure and potential complications of bleeding, perforation, reaction to medications and missed diagnosis were discussed with the patient with the help of a [place] manager of global and informed consent was obtained. Instrument: Olympus CF H 190 L variable stiffness adult colonoscope Monitoring: Vital signs and clinical assessment, intermittent blood pressure monitoring, continuous EKG monitoring, Pulse oximetry and Carbon Dioxide monitoring were done throughout the procedure. Please see anesthesia flowsheet. Colon withdrawl time was 25 minutes. Procedure: The patient was placed in the left lateral decubitis position and pre-procedure medications were administered. After a digital rectal examination of the ano-rectum, the video colonoscope was inserted into the rectum and advanced through the colon to the cecum. The colonoscope was slowly withdrawn in a retrograde panoramic fashion and the colon mucosa was carefully examined including a retroflexed view of the rectum. Findings and interventions are described below. Procedure Difficulty: Colon was long and there was some loop formation Findings: Terminal Ileum: Not evaluated Cecum: Normal Ascending Colon: Normal Transverse Colon: Normal Descending Colon: Normal Sigmoid Colon: Moderate diverticulosis Rectum: A 2 x 2.5 cms flat polyp/anal condyloma in the distal rectum just inside the anal verge. Polyp was raised with 3 cc of [place] and removed piecemeal with a stiff hot snare. Residual polyp was ablated with cautery using the snare tip. Ano-rectum: Moderate internal hemorrhoids Colon preparation: Excellent, after some irrigation. [place] Bowel Preparation Scale Right colon; 3 Transverse colon: 3 Left colon; 3 (0 = Unprepared colon segment with mucosa not seen due to solid stool that cannot be cleared. 1 = Portion of mucosa of the colon segment seen, but other areas of the colon segment not well seen due to staining, residual stool and/or opaque liquid. 2 = Minor amount of residual staining, small fragments of stool and/or opaque liquid, but mucosa of colon segment seen well. 3 = Entire mucosa of colon segment seen well with no residual staining, small fragments of stool or opaque liquid) Impression and Post Procedure Diagnosis: Colonoscopy Findings: One medium sized polyp was removed from the distal recum (likely recurrent anal condyloma) Moderate diverticulosis seen in the sigmoid colon Moderate hemorrhoids on retroflexed exam. Plan: Pt has a FU appointment on 05/10/[address] Rader Repeat Colonoscopy in 3-5 years if polyps are adenomatous and 10 year if polyps are hyperplastic. Above findings were reviewed with the patient and relevant handouts were given and the discharge area.
[2024-05-04 10:51] VITALS: BP 87/40; PULSE 82; RESP 16; TEMP 36.6; O2SAT 100
[2024-05-04 11:06] VITALS: BP 100/52; PULSE 68; RESP 16; TEMP 36.1; O2SAT 100
== END 2024-05-04 11:25 | disposition home or self-care (01) ==
PROVIDERS: Nurse Practitioner; PCP Internal Medicine; Visit Provider Internal Medicine Gastroenterology
PROC: 0DJD8ZZ Inspection of Lower Intestinal Tract, Via Natural or Artificial Opening Endoscopic (ICD-10-PCS; CPT 45378; principal; 2024-05-04 10:50)
DX: Z12.11 Encounter for screening for malignant neoplasm of colon (principal); Z86.0101 Personal history of adenomatous and serrated colon polyps; K62.1 Rectal polyp; K57.30 Diverticulosis of large intestine without perforation or abscess without bleeding; K64.8 Other hemorrhoids; K62.82 Dysplasia of anus; A63.0 Anogenital (venereal) warts; K59.09 Other constipation; K74.60 Unspecified cirrhosis of liver; Z86.19 Personal history of other infectious and parasitic diseases; Z79.51 Long term (current) use of inhaled steroids; Z79.899 Other long term (current) drug therapy; Z87.891 Personal history of nicotine dependence; Z98.890 Other specified postprocedural states
CPT/HCPCS: 45385; 45381; 36415; 80053; 85027; 85610; 88305; J2003; J2704

== ENCOUNTER → 2024-05-04 08:24 | Outpatient (BNV) | payer OTHER, SELFPAY | PROVIDERS: PCP Internal Medicine; Visit Provider Internal Medicine Gastroenterology | DX: Z12.11 Encounter for screening for malignant neoplasm of colon (principal); Z86.0100 Personal history of colon polyps, unspecified; K62.82 Dysplasia of anus; K64.8 Other hemorrhoids | CPT/HCPCS: 45381; 45385 ==

== ENCOUNTER 2024-05-10 08:23 | Outpatient (AMB) | payer OTHER, SELFPAY ==
--- NOTE | 2024-05-10 08:29 | A.OFFVIS_ITS ---
Vital Signs 05/10/24 08:43 Height 5 ft 11 in Weight 147 lb BMI 20.5 BP 112/59 L Blood Pressure Location Lt brachial Position Sitting Pulse 80 Intake Visit Reasons: s/p colon Intake Note: Patient 6 months follow up for Anal Condyloma (+),US ABD & Colonoscopy results. Patient denies any GI issues for today. Business Development Recruiter Required: Yes Business Development Recruiter Name: Jagdish [id number] Accompanied by: Self / Same As Patient Allergies bee pollen Allergy (Mild, Verified 06/07/24 09:05) Unknown Medication List - Last Reconciled 05/10/24 by Pedro Rader MD cetirizine 10 mg PO QAM ergocalciferol (vitamin D2) 1,250 mcg PO QWEEK fluticasone propionate 50 mcg/actuation 1 spray intranasal DAILY losartan-hydrochlorothiazide 50-12.5 mg 1 tab PO DAILY HPI HPI s/p colon: Details: GI CLINIC VISIT FOR THIS 73-YEAR-OLD LATVI[place]-SPEAKING MALE FOR FOLLOW-UP OF UNEXPLAINED WEIGHT LOSS. TODAY'S VISIT ?TELEPHONE PSYCHOTHERAPIST,?[facility] Colonoscopy results were reviewed with the patient - advised FU sigmoidoscopy in 1 year Patient 6 months follow up for Anal Condyloma (+),US ABD & Colonoscopy results. Denies abd pain and wt has been stable Lab tests and abd US results were reviewed with the patient. Appetite is good and has been eating very well ?PAST VISIT: Has been gaining a few lbs and weighed 147 lbs today (Increased from .141 lbs10 months ago) ? Denies problems with constipation. ? Complains of mild constipation and was prescribed something and has not been taking it. ? Has a BM 2-3 times a day and stools are sometimes soft and sometimes hard. ? Pt complains of symptoms of unintentional weight loss over the past few yrs - 154 lbs to 133 lbs on 09/14/19. ? Current weight is 132. ? Has been less active since he moved here. ? Patient denies abdominal pain, change in bowel habits, black stools or rectal bleeding - can have occasional diarrhea. ? Denies dysphagia, heartburn, nausea or vomiting or change in appetite. ? Patient denies major cardiac or pulmonary problems, history of loud snoring was sleep apnea. ? He denies having any surgeries in the past. ? He denies being on chronic anticoagulation. ? Pt denies having an EGD or a Colonoscopy in the past. ? Patient denies known family history of colon polyps, colon cancer or other GI malignancy. ? Positive FH of diabetes in multiple?cous[facility] [place] Reviewed ? 10/13 antibody test for celiac sprue were negative, HIV and antibody testing for syphilis were negative. ? 09/20/19 stool occult blood x3 were negative. ? IMAGING STUDIES: 11/24/22 ABD US SHOWED: LIVER: The liver is normal in size. The liver contour is normal. Parenchymal echogenicity is normal but with a somewhat coarsened appearance. No focal hepatic lesion. There is no intrahepatic biliary duct dilatation seen. 01/16/20 ABD US SHOWED:? An anechoic cyst in the right hepatic lobe measuring 1 x 0.6 x 0.8 cm and no additional lesions were seen. ENDOSCOPIC STUDIES: 05/[address] RAGSDALE: Anoscopy There were no lesions or any condylomas seen. There was no abnormality in the anal lining. There was no bleeding. There was no fissure. There was no induration on digital exam 2020 COLONOSCOPY SHOWED: Rectum:? A 2 x 2 cms flat polyp at the anal verge raised with 2 cc of Orise solution (submucosal injection) and removed piece meal with a hot snare. Residual 1 cms polyp from past polypectomy - ablated with a hot snare. Ano-rectum:? Moderate internal hemorrhoids Two polyps removed Moderate diverticulosis seen in the sigmoid colon Moderate hemorrhoids on retroflexed exam. Plan:? Repeat Colonoscopy interval based on path results - in 2-3 years if polyps are adenomatous and due to hx of adenomatous colon polyps. BIOPSIES SHOWED: Rectum, polypectomy:? 10/30/19 EGD AND COLONOSCOPY SHOWED: ? STOMACH: Moderate diffuse gastric erythema with smal amounts of heme. Biopsies ? were obtained. A few 5 to 10 mm benign appearing nodules with central ? erosions in the antrum - biopsied. A linear erosion in the antrum. ? Three polyps removed during colonoscopy- a 4th polyp was not removed due to excessive length of proocedure ? Moderate to severe diverticulosis seen in the left colon ? Moderate hemorrhoids on retroflexed exam. ?BIOPSIES SHOWED: ? A. Small bowel, biopsies: Chronic duodenitis with foveolar metaplasia and without ? increased intraepithelial lymphocytes; negative for dysplasia/malignancy. ? B. Stomach, nodules, biopsies: Gastric mucosa with moderate active gastritis; positive ? for Helicobacter pylori organisms consistent with H. pylori gastritis; negative for ? intestinal metaplasia/dysplasia. ? C. Stomach, body, biopsies: Gastric mucosa with moderate active gastritis; positive ? for Helicobacter pylori organisms consistent with H. pylori gastritis; negative for ? intestinal metaplasia/dysplasia. ? D. Colon, ileocecal valve polyp, polypectomy: Fragments of tubular adenoma. ? E. Colon, sigmoid polyp, polypectomy: Fragments of hyperplastic polyp. ? F. Rectum, polyp, polypectomy: Condyloma acuminatum (AIN 1). ? Pt had fulgration of Anal condyloma on 01/08/[address] Ragsdale. 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 Plan: Repeat Colonoscopy in 3-5 years if polyps are adenomatous and 10 year if polyps are hyperplastic. 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 [facility] Medical History (Updated 06/07/24 @ 09:22 by Syd Ragsdale MD) History of anal lesion Cirrhosis Anal intraepithelial neoplasia I Chronic constipation History of Helicobacter pylori infection History of adenomatous polyp of colon Anal condyloma Hypertension Weight loss Surgical History History of hemorrhoidectomy History of esophagogastroduodenoscopy (EGD) Hx of colonoscopy Family History Father Liver problem Mother Alzheimer disease Sister History of breast cancer Social History Are you a primary hearing care professional to a significant other at home: No Do you presently have visiting nurse or other home services: No Alcohol intake: current Alcohol intake frequency: does not drink Patient Tobacco Use Status: Former Tobacco user Tobacco use type: Cigarette Review of Systems Const All systems reviewed & are unremarkable except as noted in HPI and below Physical Exam Vital Signs: Last Vital Signs Pulse 80 05/10/24 08:43 BP 112/59 L 05/10/24 08:43 BMI result Body Mass Index 20.5 Const General: healthy appearing and no acute distress Nutritional Appearance: average body habitus Orientation/consciousness: patient oriented x3 Limitations: language barrier HEENT Head: Yes normal to inspection Ears: hearing grossly normal bilaterally Eyes Sclerae: sclerae normal Pupils: Equal, round and reactive pupils present Neck Neck: Yes normal visual inspection Chest Chest palpation & inspection: normal inspection of the chest Resp Effort & Inspection: normal respiratory effort Auscultation: clear to auscultation bilaterally Cardio Palpation: normal PMI Rate: regular rate Rhythm: regular rhythm Heart sounds: S1 normal heart sound present, S2 normal heart sound present and no murmurs GI Palpation (GI): Soft to palpation, nontender and No hepatosplenomegaly present Auscultation: normal bowel sounds Rectal Exam - Male: Yes deferred Skin General skin exam: no rashes or lesions noted Neuro General: patient oriented x3, gait normal and moves all extremities Cranial nerves: Yes Equal, round and reactive pupils present Psych Appearance: grossly normal Mental Status: mental status grossly normal Assessment & Plan Assessment & Plan (1) Cirrhosis of liver without ascites: Code(s): K74.60 - Unspecified cirrhosis of liver Category: Medical (2) Anal intraepithelial neoplasia I: Code(s): K62.82 - Dysplasia of anus Category: Medical (3) Anal condyloma: Comment: 01/08/20 Pt underwent EUA with excision of hemorrhoid with an anal condyloma by Dr Ragsdale and he is scheduled for a FU anoscopy in 12 months. Code(s): A63.0 - Anogenital (venereal) warts Category: Medical (4) Chronic constipation: Code(s): K59.09 - Other constipation Category: Medical (5) History of Helicobacter pylori infection: Comment: Pt was treated with amoxicillin, clarithromycin and twice daily omeprazole in Oct, 2019. H PYLORI AG, STOOL - negative on 01/16/20 Code(s): Z86.19 - Personal history of other infectious and parasitic diseases Category: Medical (6) History of adenomatous polyp of colon: Comment: 10/30/2019 A 12-15 mm adenomatous polyp overlying the ICV was removed Repeat colonoscopy is advised in 1 year to check polypectomy site in the cecum. 04/16 Two rectal polyps removed during colonoscopy. Condylomata acuminata on bx. FU colon in 3 yrs (due 03/2024). Code(s): Z86.010 - Personal history of colon polyps Category: Medical Plan 73-year-old Czech-speaking male followed in GI for evaluation of unexplained weight loss without any change in his p.o. intake. Patient denied any upper or lower GI symptoms and stool hemoccults x3 were negative. He admitted to cold intolerance and increased urinary frequency. Lab evaluation was negative for diabetes, thyroid disease, HIV and syphilis. 10/30/19 EGD showed gastritis related to Helicobacter pylori infection. Pt was treated and FU stool antigen was negative for H Pylori. An adenomatous polyp was removed during same-day colonoscopy. 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 Cirrhosis likely due to past ETOH abuse.? MELD score is 8 PT admits to past heavy ETOH abuse and quitted in 1983. Hepatitis B serologies, JORGE and celiac serologies were normal 05/16/24 Pt was advised to schedule an Abd US for HCC surveillance FU in 6 months Orders: Orders US abdomen limited 05/10/24 K74.60 - Unspecified cirrhosis of liver Coding Level of Care Code Est Pt Level 4 (72370) Diagnoses Cirrhosis of liver without ascites K74.60 Anal intraepithelial neoplasia I K62.82 Anal condyloma A63.0 Chronic constipation K59.09 History of Helicobacter pylori infection Z86.19 History of adenomatous polyp of colon Z86.010 Time Spent (min) 19
[2024-05-10 08:43] VITALS: BP 112/59; PULSE 80; BMI 20.5
== END 2024-05-10 09:26 | disposition home or self-care (01) ==
PROVIDERS: PCP Internal Medicine; Visit Provider Internal Medicine Gastroenterology
DX: K74.60 Unspecified cirrhosis of liver (principal); K62.82 Dysplasia of anus; A63.0 Anogenital (venereal) warts; K59.09 Other constipation; Z86.19 Personal history of other infectious and parasitic diseases; Z86.0100 Personal history of colon polyps, unspecified
CPT/HCPCS: 99499

== ENCOUNTER → 2024-05-10 08:23 | Outpatient (BNVA) | payer OTHER, SELFPAY | PROVIDERS: PCP Internal Medicine; Visit Provider Internal Medicine Gastroenterology ==

== ENCOUNTER 2024-05-22 07:52 | Outpatient (REF) | payer OTHER, SELFPAY | END 2024-05-22 07:53 | disposition home or self-care (01) | LOC: HO.US 07:52 | PROVIDERS: PCP Internal Medicine; Visit Provider Internal Medicine Gastroenterology | DX: K74.60 Unspecified cirrhosis of liver (principal) | CPT/HCPCS: 76705 ==

== ENCOUNTER 2024-06-07 08:54 | Outpatient (AMB) | payer OTHER, SELFPAY ==
--- NOTE | 2024-06-07 09:00 | MHC.OFFVIS ---
Vital Signs 06/07/24 09:03 Height 5 ft 11 in Weight 146 lb BMI 20.4 BP 144/69 H Blood Pressure Location Rt brachial Position Sitting Pulse 76 Intake Visit Reasons: One year follow-up anal condyloma Intake Note: Patient here for 1yr follow up anal condyloma. Colonoscopy in April 2024 WNL. Patient c/o: reports condylomas healed. Denies bleeding, constipation, diarrhea. Member Service Specialist Required: No Accompanied by: Self / Same As Patient Allergies bee pollen Allergy (Mild, Verified 06/07/24 09:05) Unknown HPI HPI One year follow-up anal condyloma: Details: He has a history of an anal condyloma with AIN I. This was seen incidentally on his hemorrhoidectomy specimen in 2020. He is here for a surveillance anoscopy. He denies any complaints with regards to his anus at this time. He denies bleeding or pain. [facility] Medical History (Updated 06/07/24 @ 09:22 by Syd Ragsdale MD) History of anal lesion Cirrhosis Anal intraepithelial neoplasia I Chronic constipation History of Helicobacter pylori infection History of adenomatous polyp of colon Anal condyloma Hypertension Weight loss Surgical History History of hemorrhoidectomy History of esophagogastroduodenoscopy (EGD) Hx of colonoscopy Family History Father Liver problem Mother Alzheimer disease Sister History of breast cancer Social History Are you a primary primary care sales representative to a significant other at home: No Do you presently have visiting nurse or other home services: No Alcohol intake: current Alcohol intake frequency: does not drink Patient Tobacco Use Status: Former Tobacco user Tobacco use type: Cigarette Review of Systems Const Denies chills and Denies fever(s) Card Denies chest pain, Denies dyspnea and Denies dyspnea on exertion Resp Denies cough, Denies dyspnea and Denies dyspnea on exertion GI Denies hematochezia and Denies change in bowel habits Denies hematuria and Denies difficulty urinating Musc Denies back pain and Denies limited range of motion Neuro Denies focal weakness and Denies convulsions Psych Denies depression and Denies mood swings Physical Exam Vital Signs: Last Vital Signs Pulse 76 06/07/24 09:03 BP 144/69 H 06/07/24 09:03 BMI result Body Mass Index 20.4 Const General: comfortable and no acute distress Orientation/consciousness: patient oriented x3 Neck Neck: Yes no lymphadenopathy Resp Auscultation: clear to auscultation bilaterally Cardio Rhythm: regular rhythm GI Other: Rectal exam shows small external hemorrhoidal column on the left Palpation (GI): Soft to palpation, nontender and no guarding Neuro General: patient oriented x3 Office Procedures Anoscopy He was in walter-knife position. The anoscope was gently inserted. A full examination of the anal canal was done. He did have a mix internal external hemorrhoidal column on the left side. There were no other lesions. There was no fissure. There was no induration. There was no abnormal looking lining in the anal canal. There were no significant skin changes. There was no bleeding. [id number] Assessment & Plan Assessment & Plan (1) History of anal lesion: Code(s): Z87.19 - Personal history of other diseases of the digestive system Category: Medical Plan: He has a history of condyloma and AIN 1 in 2020. Current examination including anoscopy does not reveal any suggestion of any new lesion. I explained to him the above findings. I told him that in view of his history, I will see him again in about a year to repeat the anoscopy and examination. He is comfortable with the plan. Coding Level of Care Code Est Pt Level 3 (76704) Diagnoses History of anal lesion Z87.19 CPT Codes Details - CPT: 18637-[id number] ([id number])
[2024-06-07 09:03] VITALS: BP 144/69; PULSE 76; BMI 20.4
== END 2024-06-07 09:31 | disposition home or self-care (01) ==
PROVIDERS: PCP Internal Medicine; Visit Provider Surgery
DX: Z87.19 Personal history of other diseases of the digestive system (principal)
CPT/HCPCS: 46600; 99213

== ENCOUNTER → 2024-06-07 08:54 | Outpatient (BNVA) | payer OTHER, SELFPAY | PROVIDERS: PCP Internal Medicine; Visit Provider Surgery | DX: Z87.19 Personal history of other diseases of the digestive system (principal) | CPT/HCPCS: 46600; 99212 ==

== ENCOUNTER 2024-11-15 07:07 | Outpatient (AMB) | payer OTHER, SELFPAY ==
--- NOTE | 2024-11-15 07:20 | A.OFFVIS_ITS ---
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 Patient denies any GI issues. Patient complain of coughing a lot. Curing Oven Tender Required: Yes Curing Oven Tender Name: Sherine [id number] Accompanied by: Self / Same As Patient Allergies bee pollen Allergy (Mild, Verified 11/15/24 07:20) Unknown Medication List - Last Reconciled 11/15/24 by Pedro Rader MD ergocalciferol (vitamin D2) 1,250 mcg PO QWEEK fluticasone propionate 50 mcg/actuation 1 spray intranasal DAILY losartan-hydrochlorothiazide 50-12.5 mg 1 tab PO DAILY HPI HPI 6 mo f/u after abd US: Details: GI CLINIC VISIT FOR THIS 74-YEAR-OLD ENGLISH-SPEAKING MALE FOR FOLLOW-UP OF UNEXPLAINED WEIGHT LOSS - WT HAS BEEN STABLE OVER THE PAST 3 YEARS. 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 Patient complain of coughing a lot. Complains of cough for a week, denies fever. PAST VISIT: Colonoscopy results were reviewed with the patient - advised FU sigmoidoscopy in 1 year Patient 6 months follow up for Anal Condyloma (+),US ABD & Colonoscopy results. Denies abd pain and wt has been stable Lab tests and abd US results were reviewed with the patient. Appetite is good and has been eating very well Has been gaining a few lbs and weighed 147 lbs today (Increased from .141 lbs10 months ago) ? Denies problems with constipation. ? Complains of mild constipation and was prescribed something and has not been taking it. ? Has a BM 2-3 times a day and stools are sometimes soft and sometimes hard. ? Pt complains of symptoms of unintentional weight loss over the past few yrs - 154 lbs to 133 lbs on 09/14/19. ? Current weight is 132. ? Has been less active since he moved here. ? Patient denies abdominal pain, change in bowel habits, black stools or rectal bleeding - can have occasional diarrhea. ? Denies dysphagia, heartburn, nausea or vomiting or change in appetite. ? Patient denies major cardiac or pulmonary problems, history of loud snoring was sleep apnea. ? He denies having any surgeries in the past. ? He denies being on chronic anticoagulation. ? Pt denies having an EGD or a Colonoscopy in the past. ? Patient denies known family history of colon polyps, colon cancer or other GI malignancy. ? Positive FH of diabetes in multiple?cousins LABS IN [employer]:?03/28/20 Reviewed ? 10/13 antibody test for celiac sprue were negative, HIV and antibody testing for syphilis were negative. ? 09/20/19 stool occult blood x3 were negative. ? IMAGING STUDIES: 11/24/22 ABD US SHOWED: LIVER: The liver is normal in size. The liver contour is normal. Parenchymal echogenicity is normal but with a somewhat coarsened appearance. No focal hepatic lesion. There is no intrahepatic biliary duct dilatation seen. 01/16/20 ABD US SHOWED:? An anechoic cyst in the right hepatic lobe measuring 1 x 0.6 x 0.8 cm and no additional lesions were seen. ENDOSCOPIC STUDIES: 05/2023 [address] RAGSDALE: Anoscopy There were no lesions or any condylomas seen. There was no abnormality in the anal lining. There was no bleeding. There was no fissure. There was no induration on digital exam 2020 COLONOSCOPY SHOWED: Rectum:? A 2 x 2 cms flat polyp at the anal verge raised with 2 cc of Orise solution (submucosal injection) and removed piece meal with a hot snare. Residual 1 cms polyp from past polypectomy - ablated with a hot snare. Ano-rectum:? Moderate internal hemorrhoids Two polyps removed Moderate diverticulosis seen in the sigmoid colon Moderate hemorrhoids on retroflexed exam. Plan:? Repeat Colonoscopy interval based on path results - in 2-3 years if polyps are adenomatous and due to hx of adenomatous colon polyps. BIOPSIES SHOWED: Rectum, polypectomy:? 10/30/19 EGD AND COLONOSCOPY SHOWED: ? STOMACH: Moderate diffuse gastric erythema with smal amounts of heme. Biopsies ? were obtained. A few 5 to 10 mm benign appearing nodules with central ? erosions in the antrum - biopsied. A linear erosion in the antrum. ? Three polyps removed during colonoscopy- a 4th polyp was not removed due to excessive length of proocedure ? Moderate to severe diverticulosis seen in the left colon ? Moderate hemorrhoids on retroflexed exam. ?BIOPSIES SHOWED: ? A. Small bowel, biopsies: Chronic duodenitis with foveolar metaplasia and without ? increased intraepithelial lymphocytes; negative for dysplasia/malignancy. ? B. Stomach, nodules, biopsies: Gastric mucosa with moderate active gastritis; positive ? for Helicobacter pylori organisms consistent with H. pylori gastritis; negative for ? intestinal metaplasia/dysplasia. ? C. Stomach, body, biopsies: Gastric mucosa with moderate active gastritis; positive ? for Helicobacter pylori organisms consistent with H. pylori gastritis; negative for ? intestinal metaplasia/dysplasia. ? D. Colon, ileocecal valve polyp, polypectomy: Fragments of tubular adenoma. ? E. Colon, sigmoid polyp, polypectomy: Fragments of hyperplastic polyp. ? F. Rectum, polyp, polypectomy: Condyloma acuminatum (AIN 1). ? Pt had fulgration of Anal condyloma on 01/08/[address] Ragsdale. 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 Plan: Repeat Colonoscopy in 3-5 years if polyps are adenomatous and 10 year if polyps are hyperplastic. 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 [facility] Medical History (Updated 06/07/24 @ 09:22 by Syd Ragsdale MD) History of anal lesion Cirrhosis Anal intraepithelial neoplasia I Chronic constipation History of Helicobacter pylori infection History of adenomatous polyp of colon Anal condyloma Hypertension Weight loss Surgical History History of hemorrhoidectomy History of esophagogastroduodenoscopy (EGD) Hx of colonoscopy Family History Father Liver problem Mother Alzheimer disease Sister History of breast cancer Social History Are you a primary nursing care partner to a significant other at home: No Do you presently have visiting nurse or other home services: No Alcohol intake: current Alcohol intake frequency: does not drink Patient Tobacco Use Status: Former Tobacco user Tobacco use type: Cigarette Review of Systems Const All systems reviewed & are unremarkable except as noted in HPI and below Physical Exam Vital Signs: Last Vital Signs Pulse 73 11/15/24 07:28 BP 126/67 11/15/24 07:28 Pulse Ox 99 11/15/24 07:28 Oxygen Delivery Method Room Air 11/15/24 07:28 BMI result Body Mass Index 20.6 Const General: healthy appearing and no acute distress Nutritional Appearance: average body habitus Orientation/consciousness: patient oriented x3 Limitations: language barrier HEENT Head: Yes normal to inspection Ears: hearing grossly normal bilaterally Eyes Sclerae: sclerae normal Pupils: Equal, round and reactive pupils present Neck Neck: Yes normal visual inspection Chest Chest palpation & inspection: normal inspection of the chest Resp Effort & Inspection: normal respiratory effort Auscultation: clear to auscultation bilaterally Cardio Palpation: normal PMI Rate: regular rate Rhythm: regular rhythm Heart sounds: S1 normal heart sound present, S2 normal heart sound present and no murmurs GI Palpation (GI): Soft to palpation, nontender and No hepatosplenomegaly present Auscultation: normal bowel sounds Rectal Exam - Male: Yes deferred Skin General skin exam: no rashes or lesions noted Neuro General: patient oriented x3, gait normal and moves all extremities Cranial nerves: Yes Equal, round and reactive pupils present Psych Appearance: grossly normal Mental Status: mental status grossly normal Assessment & Plan Assessment & Plan (1) Anal condyloma: Comment: 01/08/20 Pt underwent EUA with excision of hemorrhoid with an anal condyloma by Dr Ragsdale and he is scheduled for a FU anoscopy in 12 months. Code(s): A63.0 - Anogenital (venereal) warts Category: Medical (2) History of adenomatous polyp of colon: Comment: 10/30/2019 A 12-15 mm adenomatous polyp overlying the ICV was removed Repeat colonoscopy is advised in 1 year to check polypectomy site in the cecum. 04/16 Two rectal polyps removed during colonoscopy. Condylomata acuminata on bx. FU colon in 3 yrs (due 03/2024). Code(s): Z86.010 - Personal history of colon polyps Category: Medical (3) History of Helicobacter pylori infection: Comment: Pt was treated with amoxicillin, clarithromycin and twice daily omeprazole in Oct, 2019. H PYLORI AG, STOOL - negative on 01/16/20 Code(s): Z86.19 - Personal history of other infectious and parasitic diseases Category: Medical (4) Chronic constipation: Code(s): K59.09 - Other constipation Category: Medical (5) Anal intraepithelial neoplasia I: Code(s): K62.82 - Dysplasia of anus Category: Medical (6) Cirrhosis of liver without ascites: Code(s): K74.60 - Unspecified cirrhosis of liver Category: Medical (7) History of anal lesion: Code(s): Z87.19 - Personal history of other diseases of the digestive system Category: Medical Plan 74-year-old Sammarinese-speaking male followed in GI for evaluation of unexplained weight loss without any change in his p.o. intake. Patient denied any upper or lower GI symptoms and stool hemoccults x3 were negative. He admitted to cold intolerance and increased urinary frequency. Lab evaluation was negative for diabetes, thyroid disease, HIV and syphilis. 10/30/19 EGD showed gastritis related to Helicobacter pylori infection. Pt was treated and FU stool antigen was negative for H Pylori. An adenomatous polyp was removed during same-day colonoscopy. 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 Cirrhosis likely due to past ETOH abuse.? MELD score is 8 PT admits to past heavy ETOH abuse and quitted in 1983. Hepatitis B serologies, JORGE and celiac serologies were normal 05/16/24 Pt was advised to schedule an Abd US for HCC surveillance 11/15/24 Schedule a Flex Sig with colon prep - FU of rectal polyp/condyloma Hep B vaccine (1st injection) Schedule Abd US for HCC surveillance. FU in 6 months Orders: Orders US abdomen limited Today K74.60 - Unspecified cirrhosis of liver Hepatitis B Adult Immunization Today K74.60 - Unspecified cirrhosis of liver Medications: New polyethylene glycol 3350 (Miralax) Mix Miralax with 64 oz(8 cups) of Crystal light. Take 2 tablets of Dulcolax qt 12 pm. Wait to have your 1st bowel movement, then begin drinking Miralax. Drink a glass of Miralax every 10-15 minutes until you are finished. You will drink at least another 4 cups of clear liquid of your choice over the next 2 hours. Please drink as many clear liquids as possible You may have clear liquids up to four hours before your procedure 17 grams PO DAILY 1 day 238 grams 0RF Engerix-B (PF) (hepatitis B virus vacc.rec(PF)) 1 mL IM ONCE 1 mL 0RF NS K74.60 - Unspecified cirrhosis of liver cholecalciferol (vitamin D3) 25 mcg PO DAILY 90 days 90 caps 0RF E55.9 - Vitamin D deficiency, unspecified bisacodyl (Dulcolax (bisacodyl)) Take 4 tablets at 12 pm the day before colonoscopy appointment 20 mg (4 x 5 mg) PO ONCE 1 day 4 tabs 0RF colon prep Coding Level of Care Code Est Pt Level 4 (29033) Complex EM visit Add On G2211 Diagnoses Anal condyloma A63.0 History of adenomatous polyp of colon Z86.010 History of Helicobacter pylori infection Z86.19 Chronic constipation K59.09 Anal intraepithelial neoplasia I K62.82 Cirrhosis of liver without ascites K74.60 History of anal lesion Z87.19 Time Spent (min) 20
[2024-11-15 07:28] VITALS: BP 126/67; PULSE 73; O2SAT 99; BMI 20.6
== END 2024-11-15 08:07 | disposition home or self-care (01) ==
LOC: HO.HGI 07:08
PROVIDERS: PCP Internal Medicine; Visit Provider Internal Medicine Gastroenterology
DX: A63.0 Anogenital (venereal) warts (principal); Z86.0100 Personal history of colon polyps, unspecified; Z86.19 Personal history of other infectious and parasitic diseases; K59.09 Other constipation; K62.82 Dysplasia of anus; K74.60 Unspecified cirrhosis of liver; Z87.19 Personal history of other diseases of the digestive system
CPT/HCPCS: 99214; G2211

== ENCOUNTER → 2024-11-15 07:07 | Outpatient (BNVA) | payer OTHER, SELFPAY | PROVIDERS: PCP Internal Medicine; Visit Provider Internal Medicine Gastroenterology | DX: Z23 Encounter for immunization (principal); A63.0 Anogenital (venereal) warts; K59.09 Other constipation; K62.82 Dysplasia of anus; K74.60 Unspecified cirrhosis of liver; Z86.0101 Personal history of adenomatous and serrated colon polyps; Z86.19 Personal history of other infectious and parasitic diseases; Z87.19 Personal history of other diseases of the digestive system | CPT/HCPCS: 90471; 90746; 99212 ==

== ENCOUNTER 2024-11-22 06:59 | Outpatient (REF) | payer OTHER, SELFPAY ==
[2024-11-22 08:09] LABS: Anion Gap 12 (12-20); Blood Urea Nitrogen 19 mg/dL (9-16); Calcium 9.6 mg/dL (8.4-10.2); Carbon Dioxide 28 mmol/L (22-29); Chloride 106 mmol/L (96-108); Cholesterol 188 mg/dL (<200); Estimated Glomerular Filt Rate > 60; Glucose Random 90 mg/dL (60-115); HDL Cholesterol 48 mg/dL (>40); LDL Cholesterol Calculated 123 mg/dL (<100); Potassium 3.8 mmol/L (3.3-5.1); Sodium 142 mmol/L (135-145); Triglycerides 88 mg/dL (<150)
[2024-11-22 08:23] LABS: Vitamin D 25-OH Total 35.6 ng/mL (>30)
[2024-11-22 08:45] LABS: Reflex LDLD? No
== END 2024-11-22 07:00 | disposition home or self-care (01) ==
LOC: HO.LAB 06:59
PROVIDERS: PCP Internal Medicine; Visit Provider Internal Medicine
DX: I10 Essential (primary) hypertension (principal); E78.00 Pure hypercholesterolemia, unspecified
CPT/HCPCS: 36415; 80048; 80061; 82306

== ENCOUNTER 2024-12-13 07:57 | Outpatient (AMB) | payer OTHER, SELFPAY ==
--- OUTSIDE RECORDS SUMMARY | 2024-12-13 08:01 | XMS_ITS | Encounter Summary ---
Author Organization [employer] Address [address] [facility] [address] [place] [address] Care Team Providers Care Sales Agent Insurance Name Role Phone Hayley Mooney MD Primary Care Provider + Encounter Details Date Type Department Care Team (Late st Contact Info) Description 12/09/2022 Abstract [facility] MEDICINE [address] [place] [address] Hayley Mooney MD [address] [place] [address] Social History Tobacco Use Types Packs/Day Years Used Date Smoking Tobacco: Never Smokeless Tobacco: Never Alcohol Use Standard Drinks/Week Comments Never 0 (1 standard drink = 0.6 oz pur e alcohol) Depression Answer Date Recorded Patient Health Questionnaire-2 Score 0 11/23/2022 Sex and Gender Information Value Date Recorded Sex Assigned at Male 04/26/2022 10:36 AM EDT Legal Sex Male 10:36 AM EDT Gender Identity Male 04/26/2022 10:36 AM EDT Sexual Orientation Straight 04/26/2022 10 :36 AM EDT COVID-19 Exposure Response Date Recorded In the last 10 days, have yo u been in contact with someone who was confirmed or suspected to have Coronavirus/COVID-19? No / Unsure 11/23/2022 9:17 AM EDT documented as of this encounter Plan of Treatment Not on file documented as of this encounter Procedures Procedure Name Priority Date/Time Associated Diagnosis Comments COLONOSCOPY Routine 04/03/2021 11:07 AM EDT documented in this encounter Results * Colonoscopy (04/03/2021 11:07 AM EDT) Colonoscopy Normal Normal Narrative Dorothy Higgins - 04/03/2021 11:07 AM EDT Recommended 3 year follow up ([facility]) us Historical Provider HEALTH MAINTENANCE Edited Result - Final documented in this encounter Visit Diagnoses Not on filedocumented in this encounter Care Teams Sales Agent Insurance Relationship Specialty Start Date End Date Hayley Mooney MD [address] [place] [phone] PCP - General Family Medicine 09/14/19 documented as of this encounter
--- NOTE | 2024-12-13 08:40 | AM.OFFVISNUR ---
Intake Visit Reasons: Hep B #2 Allergies bee pollen Allergy (Mild, Verified 11/15/24 07:20) Unknown Immunizations Engerix-B (PF) 20 mcg/mL intramuscular suspension Performing Provider: Pedro Rader MD Performing Location: [facility] Administered by: Kati Garcia RN on 12/13/24 08:40 Dose Route Admin Location Dispensed Lot Number Expiration Date [facility] Powder Loader 1 mL IM Right Deltoid 1 mL [id number] 01/22/27 51689-812-64 [employer] Total Dispensed Waste 1 mL 0 % VIS Given Date VIS Provided VIS Publication Date 12/13/24 Single Vaccine 22 Eligibility Eligibility Date Funding Source Not [facility] Eligible 12/13/24 Private Assessment & Plan Assessment & Plan Orders: Orders Hepatitis B Adult Immunization Today Z23 - Encounter for immunization Coding Level of Care Code Established Pt Est Pt Level 1 (12836) Patient Type Established Medical Decision Making Straight Forward
== END 2024-12-13 08:41 | disposition home or self-care (01) ==
LOC: HO.HGI 07:57
PROVIDERS: PCP Internal Medicine; Visit Provider Internal Medicine Gastroenterology
DX: Z23 Encounter for immunization (principal)

== ENCOUNTER → 2024-12-13 07:57 | Outpatient (BNVA) | payer OTHER, SELFPAY | PROVIDERS: PCP Internal Medicine; Visit Provider Internal Medicine Gastroenterology | DX: Z23 Encounter for immunization (principal) | CPT/HCPCS: 90471; 90746; 99211 ==

== ENCOUNTER 2025-01-22 07:48 | Outpatient (REF) | payer OTHER, SELFPAY ==
--- NOTE | ~2025-01-22 | US_ITS ---
CLINICAL HISTORY: K74.60 - Unspecified cirrhosis of liver --- Additional Notes or Special Instructions: screen for HCC and ascites US abdomen limited with color Doppler Comparison: US/SR - US ABDOMEN LIMITED - 05/22/24 08:00 EST US/SR - US ABDOMEN LIMITED - 11/25/23 08:45 EDT US/SR - US ABDOMEN LIMITED - 11/24/22 08:12 EDT US/SR - US ABDOMEN LIMITED WITH LIVER ELASTOGRAPHY - 06/11/22 08:58 EST Findings: Visualized pancreas is normal. Tail obscured by bowel gas. Liver is normal in size heterogeneous in echotexture. Right lobe length 14.0 cm. No focal hepatic masses. Common duct 3.5 mm diameter. Gallbladder is physiologically distended. No gallstones, sludge or wall abnormalities. No gallbladder wall thickening. No pericholecystic fluid. No sonographic Max sign. Main portal vein antegrade. Right kidney measures, 10.2 cm in length. Normal cortical width and echotexture. No hydronephrosis calculus or mass. Impression: 1. Normal-sized liver coarsened hepatic echotexture reflecting hepatic steatosis or diffuse hepatocellular disease. No focal hepatic lesions. This document has been electronically signed by: Enrique Billy MD on 01/22/2025 11:36:57
--- OUTSIDE RECORDS SUMMARY | 2025-01-22 07:51 | XMS_ITS | Encounter Summary ---
Author Organization [employer] Address [address] [facility] [facility] [address] [place] [address] Care Team Providers Care Lead Applier Name Role Phone Hayley Mooney MD Primary Care Provider + Encounter Details Date Type Department Care Team (Late st Contact Info) Description 12/09/2022 Abstract [facility] MEDICINE [address] [place] [address] Hayley Mooney MD [address] [place] [address] Social History Tobacco Use Types Packs/Day Years [...] as of this encounter Plan of Treatment Upcoming Encounters Date Type Department Care Team (Late st Contact Info) Description 05/10/2025 9:30 AM EST Office Visit [facility] OPTOMETRY [address] [place] [address] Jory Mays, OD [address] [place] [address] documented as of this encounter Procedures Procedure Name Priority Date/Time Associated Diagnosis Comments COLONOSCOPY Routine 04/03/2021 11:07 AM EDT documented in this encounter Results * Colonoscopy (04/03/2021 11:07 AM EDT) Colonoscopy Normal Normal Narrative Dorothy Higgins - 04/03/2021 11:07 AM EDT Recommended 3 year follow up ([facility]) us Historical Provider [employer] MAINTENANCE Edited Result - Final documented in this encounter Visit Diagnoses Not on filedocumented in this encounter Care Teams Lead Applier Relationship Specialty Start Date End Date Hayley Mooney MD [address] [place] [phone] PCP - General Family Medicine 09/14/19 documented as of this encounter
== END 2025-01-22 07:49 | disposition home or self-care (01) ==
LOC: HO.US 07:48
PROVIDERS: PCP Internal Medicine; Visit Provider Internal Medicine Gastroenterology
DX: K74.60 Unspecified cirrhosis of liver (principal)
CPT/HCPCS: 76705

== ENCOUNTER → 2025-01-22 07:51 | Outpatient (BNV) | payer OTHER, SELFPAY | PROVIDERS: PCP Internal Medicine; Visit Provider Radiology Diagnostic Radiology | DX: K74.60 Unspecified cirrhosis of liver (principal) | CPT/HCPCS: 76705 ==

== ENCOUNTER 2025-05-02 07:45 | Outpatient (REF) | payer OTHER, SELFPAY ==
[2025-05-02 09:48] LABS: Hematocrit 43.8 % (42.0-52.0); Hemoglobin 14.0 g/dl (14.0-18.0); Mean Corpuscular HGB Conc 32.0 g/dl (31.0-36.0); Mean Corpuscular Hemoglobin 27.8 pg (27.0-33.0); Mean Corpuscular Volume 86.9 fL (80.0-98.0); NRBC Abs Auto 0.000 X10*3/uL (0.0-0.012); NRBC Pct Auto 0.0 /100WBC (0.0-0.2); Platelet Count 151 X10*3/uL (160-400); Red Blood Count 5.04 X10*6/uL (4.60-5.80); White Blood Count 4.3 X10*3/uL (4.8-10.8)
[2025-05-02 09:53] LABS: INTERNATIONAL NORM RATIO 1.0 (0.9-1.1); Prothrombin Time 12.3 SEC (11.2-13.5)
[2025-05-02 10:30] LABS: Alanine Aminotransferase 19 U/L (0-40); Albumin Level 4.4 g/dL (3.5-5.0); Alkaline Phosphatase 60 U/L (39-117); Anion Gap 9 (12-20); Aspartate Amino Transferase 27 U/L (5-37); Blood Urea Nitrogen 24 mg/dL (9-16); Calcium 9.3 mg/dL (8.4-10.2); Carbon Dioxide 29 mmol/L (22-29); Chloride 107 mmol/L (96-108); Estimated Glomerular Filt Rate > 60; Potassium 4.1 mmol/L (3.3-5.1); Sodium 141 mmol/L (135-145); Total Protein 7.3 g/dL (6.5-8.0)
[2025-05-02 11:19] LABS: Folate 8.4 ng/mL (> or = 4.0); Vitamin B12 267 pg/mL (200-900)
[2025-05-11 19:03] LABS: FIB-ALT 10 U/L (9-46); FIB-Alpha-2-Macroglobulin 285 mg/dL (106-279); FIB-Apolipoprotein A1 148 mg/dL (94-176); FIB-GGT 11 U/L (3-70); FIB-Haptoglobin 104 mg/dL (43-212); FIB-Total Bilirubin 0.9 mg/dL (0.2-1.2); Liver Fibrosis Score 0.56; Liver Fibrosis Stage F2; Nec Inflam Act Grade A0; Nec Inflam Act Score 0.04
== END 2025-05-02 07:46 | disposition home or self-care (01) ==
LOC: HO.LAB 07:45
PROVIDERS: PCP Internal Medicine; Visit Provider Internal Medicine Gastroenterology
DX: K74.60 Unspecified cirrhosis of liver (principal); Z86.19 Personal history of other infectious and parasitic diseases; Z86.0100 Personal history of colon polyps, unspecified; K59.09 Other constipation; Z87.19 Personal history of other diseases of the digestive system; R63.4 Abnormal weight loss; Z68.20 Body mass index [BMI] 20.0-20.9, adult; Z79.899 Other long term (current) drug therapy
CPT/HCPCS: 36415; 80053; 81596; 82306; 82607; 82746; 85027; 85610; 99212

== ENCOUNTER 2025-05-02 07:45 | Outpatient (AMB) | payer OTHER, SELFPAY ==
--- OUTSIDE RECORDS SUMMARY | 2025-05-02 07:48 | XMS_ITS | Clinical Summary ---
Author Organization [employer] Address [address] [facility] [address] [place] [address] Care Team Providers Care Vp Security Name Role Phone Hayley Mooney MD Primary Care Provider + Allergies No known active allergies Medications ketotifen (Zaditor) 0.025 % ophthalmic solutionIndication s:Allergic conjunctivitis of both eyes and rhinitis Administer 1 drop into both eyes 2 times daily. 10 mL 2 3 Active cetirizine (ZyrTEC) 10 MG tablet Take 1 tablet (10 mg) by mouth Once per day. 90 tablet 3 4 Active losartan-hydroCHLO ROthiazide (Hyzaar) 50-12.5 MG tabletIndications: Essential hypertension TAKE 1 TABLET BY MOUTH ONCE DAILY IN THE MORNING 90 tablet 3 5 Active fluticasone (Flonase) 50 MCG/ACT nasal sprayIndications:A llergic conjunctivitis of both eyes and rhinitis Administer 1-2 sprays into each nostril Once per day. Shake gently. Before first use, prime pump. After use, clean tip and replace cap. 16 g 2 5 026 Active D3-1000 25 MCG (1000 UT) capsule Take 1 capsule by mouth Once per day. 5 Active Active Problems Problem Noted Date Diagnosed Date Seasonal allergies 10/24/2023 Assessment & Plan (10/24/2023 3:28 PM EDT): - take Zyrtec daily for the next month and Flonase PRN Encounter for preventive health examination 10/27 Assessment & Plan (11/23/2022 10:37 AM EDT): Discussed with patient re increase fresh fruit and vegetable intake. Counseled re moderate exercise as tolerated, up to 20min/d Patient feels safe at home. Eye exam up to date, next one due January 2023, pt will make his appointment CRC screen up to date, next one due 2024 Lipids/FBS TBO Vaccinations declined PCV and Zoster, counseled regarding completing these IZ + covid booster at the nearest pharmacist. He will bring Hep B immunization profile from [employer] advisor. Dental visit I counseled to make an appointment in our dental clinic. Acute superficial gastritis 11/19/2022 Pure hypercholesterolemia 11/19/2022 Assessment & Plan (11/22/2024 3:59 PM EDT): LDL remains stable, not optimal. Given underlying cirrhosis, will hold off on statins for now and emphasize importance of adhering to nonpharmacological treatment. Follow lipids every year Recommended moderate amount of exercise and increase consumption of fruit, vegetables, fish and high fiber foods. Should decrease consumption of highly saturated fats or trans fats. Assessment & Plan (03/22/2024 3:51 PM EDT): On non pharmacological rx We discussed re rx options. Recommended to continue moderate amount of exercise and increase consumption of fruit, vegetables, fish and high fiber foods. Should decrease consumption of highly saturated fats or trans fats. Check lipids in 3-4m prior to next appt and will fu POC at next appt with me. Assessment & Plan (10/24/2023 3:31 PM EDT): We discussed re rx options. Recommended moderate amount of exercise and increase consumption of fruit, vegetables, fish and high fiber foods. Should decrease consumption of highly saturated fats or trans fats. Assessment & Plan (03/17/2023 12:07 PM EDT): We discussed re rx options. He wants to be more strict with life style modifications. Recommended moderate amount of exercise and increased consumption of fruit, vegetables, fish and high fiber foods. We discussed about avoiding consumption of highly saturated fats or trans fats. FU lipids in 6m Irritable bowel syndrome with diarrhea 05/26/202 3 Helicobacter pylori gastritis 11/19/2022 Generalized anxiety disorder 11/19/2022 Gastric polyp 11/19/2022 Essential hypertension 11/19/2022 Assessment & Plan (11/22/2024 10:44 AM EDT): Controlled. Compliant w/meds Continue losartan/hctz same dose Counseled re low salt diet/increase moderate physical activity. Check home BP BIW and prn CP/EMERY/CADET Non smoking patient. FU in 6m He declined PCV, RSV, Zoster and Covid (booster) vax, advised to get them at his earliest convenience. Assessment & Plan (03/22/2024 3:53 PM EDT): Controlled. Compliant w/meds Continue losartan/hctz same dose Counseled re low salt diet/increase moderate physical activity. Check home BP BIW and prn CP/EMERY/CADET Non smoking patient. FU in 6m He declined PCV, Influenza IZ today. Advised to have RSV, Zoster and Covid vax as well at his earliest convenience. Assessment & Plan (10/24/2023 3:05 PM EDT): Controlled. Compliant w/meds Continue losartan/hctz same dose Counseled re low salt diet/increase moderate physical activity. Check home BP BIW and prn CP/EMERY/CADET Non smoking patient. Assessment & Plan (03/17/2023 12:06 PM EDT): Controlled. Compliant w/meds Continue losartan/hctz same dose Counseled re low salt diet/increase moderate physical activity. Check home BP BIW and prn CP/EMERY/CADET Non smoking patient. Declines PNA IZ Assessment & Plan (11/23/2022 12:51 PM EDT): BP is fairly controlled continue losartan/HCTZ and check labs in 3 months Tubular adenoma of colon 11/19/2022 Assessment & Plan (11/23/2022 12:50 PM EDT): Colonoscopy 2019, next one due on [address] 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 Congratulated him on that and reminded him the importance of staying sober. Most recent lab evaluation showed low platelets and Liver Fibrosis Test showed F3 fibrosis, LFTs are fairly stable. 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 Ragsdale and was negative. He is to follow-up with Dr. Ragsdale in May 2025 Assessment & Plan (03/22/2024 3:49 PM EDT): Sp excision anal condyloma on [address] Ragsdale, fu every year. He will fu with Dr Ragsdale on 06/04/24 Assessment & Plan (11/23/2022 12:49 PM EDT): s/p colonoscopy [address] Ragsdale every 6 months, up to date Condyloma acuminatum 04/03/2021 Resolved Problems Problem Noted Date Diagnosed Date Resolved Date Vitamin D deficiency 10/24/2023 025 Assessment & Plan (10/24/2023 3:05 PM EDT): - start Vitamin D x 3 months Subacute cough 11/23/2022 11/22/2024 Assessment & Plan (11/23/2022 12:50 PM EDT): seems to be residual from PND, increase water intake and use flonase daily fu with me in 3 months or earlier Balanitis 11/19/2022 11/22/2024 Weight loss 11/19/2022 11/22/2024 Immunizations Immunization Administration Dates Next Due Influenza High-dose Quadrivalent Preservative Fr ee 03/28/2022 Influenza Quadrivalent Adjuvanted 03/11/2021 Tdap 10/02/2022 Social History Tobacco Use Types Packs/Day Years Used Date Smoking Tobacco: Never Smokeless Tobacco: Never Tobacco Cessation:Counseling Given: Not Answered Alcohol Use Standard Drinks/Week Comments Never 0 (1 standard drink = 0.6 oz pur e alcohol) Alcohol Answer Date Recorded How often do you have a drink containing alcohol ? 0 11/22/2024 How many drinks containing a lcohol do you have on a typical day when you are drinking? 0 11/22/2024 How often do you have six or more drinks on one occasion? 0 11/22/2024 Housing Stability Answer Date Recorded What is your housing situation today? I have francis dixon 11/12/[address] you li ve. Do you have problems with any of the following? Water leaks 11/12/2024 Food Insecurity Answer Date Recorded Within the past 12 months, y ou worried that your food would run out before you got money to buy more: Never True 03/14/2024 Within the past 12 months,th e food you bought just didn't last and you didn't have enough money to get more: Never True Transportation Answer Date Recorded In the past 12 months, has l ack of transportation kept you from medical appts, meetings, work or from getting things needed for daily living? Yes, it has kept me from non-medical meetings, work, or getting things that I need 11/12/2024 Utilities Answer Date Recorded In the past 12 months, has t he electric, gas, oil or water company threatened to shut off services in your home? No 03/14/2024 Depression Answer Date Recorded Patient Health Questionnaire-2 Score 0 11/22/2024 Internet Access Answer Date Recorded Internet Access Q1 Yes 03/27/2025 Internet Access Q2 Not on file 03/27/2025 Sex and Gender Information Value Date Recorded Sex Assigned at Male 04/26/2022 10:36 AM EDT Legal Sex Male 10:36 AM EDT Gender Identity Male 04/26/2022 10:36 AM EDT Sexual Orientation Straight 04/26/2022 10 :36 AM EDT Last Filed Vital Signs Vital Sign Reading Time Taken Comments Blood Pressure 130/68 11/22/2024 10:18 AM EDT Pulse 84 11/22/2024 10:18 AM EDT Temperature 36.4 C (97.5 F) 11/22/2024 10:18 AM EDT Respiratory Rate 20 11/22/2024 10:18 AM EDT Oxygen Saturation 99% 03/22/2024 10:56 AM EDT Inhaled Oxygen Concentration - - Weight 68.7 kg (151 lb 6 oz) 11/22/2024 10:18 AM EDT Height 176.5 cm (5' 9.5 ) 11/22/2024 10:18 AM ED T Body Mass Index 22.03 11/22/2024 10:18 AM EDT Plan of Treatment Upcoming Encounters Date Type Department Care Team (Late st Contact Info) Description 05/10/2025 9:30 AM EST Office Visit [facility] OPTOMETRY [address] [place], [place] [phone] Jory Mays, OD [address] [place] [address] 06/06/2025 9:00 AM EST Office Visit [facility] MEDICINE [address] [place] [address] Hayley Mooney MD [address] [place] [address] Health Maintenance Due Date Last Done Comments CT Colonography 1950 FIT DNA/Cologuard 1950 FIT 1950 Sigmoidoscopy 1950 Hepatitis A Vaccines (1 of 2 - Risk 2-dose series) 1969 Pneumococcal Vaccine: 50+ Years (1 of 2 - PCV) 1969 Zoster Vaccines (1 of 2) 2000 RSV Patients and Patients Aged 60 years or older (1 - Risk 60-74 years 1-dose series) 2010 FOBT 09/19/2020 09/20/2019 Colonoscopy 04/03/2024 04/03/2021 Colorectal Cancer Screening 04/03/2024 COVID-19 Vaccine (3 - season) 2025 03/05/2021, 02/12/2021 Influenza Vaccine (#1) 2025 03/28/2022, 2020 Hepatitis B Vaccines (3 of 3 - Risk 3-dose series) 05/18/2025 12/13/2024, 11/15/2024 SDOH Screening 11/12/2025 11/12/2024 Alcohol/Substance Use Screening 11/22/2025 11/22/2024 Depression Screening 11/22/2025 11/22/2024, 11/23/19 25 Tobacco Screening 11/22/2025 11/22/2024 Lipid Panel 11/22/2029 11/22/2024, 04/0 08/2023, 03/14/2023, Additional history exists DTaP/Tdap/Td Vaccines (2 - Td or Tdap) 10/02/2032 10/02/2022 Hepatitis C Screening Completed 05/05/2021 HIB Vaccines Aged Out No longer eligi ble based on patient's age to complete this topic HPV Vaccines Aged Out No longer eligi ble based on patient's age to complete this topic IPV Vaccines Aged Out No longer eligi ble based on patient's age to complete this topic Meningococcal B Vaccine Aged Out No l onger eligible based on patient's age to complete this topic Meningococcal Vaccine Aged Out No tahira joann eligible based on patient's age to complete this topic RSV under 20 months Aged Out No longe r eligible based on patient's age to complete this topic Rotavirus Vaccines Aged Out No longer eligible based on patient's age to complete this topic Procedures Procedure Name Priority Date/Time Associated Diagnosis Comments LIPID PANEL WITH REFLEX TO DIRECT LDL Routine 11/22/2024 7:06 AM EDT Pure hypercholesterolemia ZZZ HISTORICAL HEPATITIS C ANTIBODY Routine 05/05/2021 8:10 AM EST COLONOSCOPY Routine 04/03/2021 11:07 AM EDT ZZZ HISTORICAL OCCULT BLOOD STOOL X3 Routine 09/20/2019 12:00 AM EDT from Last 3 Months or Most Recently Relevant to Health Maintenance Results * (ABNORMAL) Lipid Panel with Reflex to Direct LDL (11/22/2024 7:06 AM EDT) Triglycerides 88 <150 mg/dL [facility] Comment:Desirable Triglyceri de: less than 150 mg/dLBorderline High Triglyceride 150-199 mg/dLHigh Triglyceride: 200-499 mg/dLVery High Triglyceride: greater than or equal to 5OO mg/dL Cholesterol 188 <200 mg/dL [facility] Comment:Desirable Cholestero l: less than 200 mg/dLBorderline High Cholesterol: 200-239 mg/dLHigh Cholesterol: greater than 239 mg/dL LDL Cholesterol Calculated 123(H) <100 mg/dL [facility] Comment:Desirable LDL: less than 100 mg/dLNear Optimal/Above Optimal LDL: 110- 129 mg/dLBorderline High LDL: 130-159 mg/dLHigh LDL: 160-189 mg/dLVery High LDL: greater than or equal to 190 mg/dL HDL Cholesterol 48 >40 mg/dL [facility] Comment:Desirable HDL: great er than 40 mg/dL Note: This HDL assay may give artificially low results in patients with liver disease. Blood 11/22/2024 7:06 AM EDT 11/22/2024 7:06 AM EDT Hayley Mooney MD LAB BLOOD ORDERABLES Fin al Result [facility] [address] [place] [address] [phone] * Hepatitis C Antibody (05/05/2021 8:10 AM EST) Hepatitis C Antibody Nonreactive Nonreactive [facility] Comment: Antibodies to HCV not detected; does not exclude early acute HCV infection. 05/05/2021 8:10 AM EST us Historical Provider HISTORICAL/NON ORDERABLE LABS Final Result Performing Organization Address City/[facility]/ZIP Co de Phone Number [facility] [address] * Hm Colonoscopy (04/03/2021 11:07 AM EDT) Colonoscopy Normal Normal Narrative Dorothy Higgins - 04/03/2021 11:07 AM EDT Recommended 3 year follow up ([facility]) us Historical Provider MD HEALTH MAINTENANCE Edited Result - Final * OCCULT BLOOD STOOL X3 (09/20/2019 12:00 AM EDT) OCCULT BLOOD STOOL-1 NEG NEG [facility] OCCULT BLOOD STOOL-1 DATE 09/19/19 AM [facility] OCCULT BLOOD STOOL-2 NEG NEG [facility] OCCULT BLOOD STOOL-2 DATE 09/19/19 PM [facility] OCCULT BLOOD STOOL-3 NEG NEG [facility] OCCULT BLOOD STOOL-3 DATE 09/20/19 AM [facility] 09/20/2019 us Hayley Mooney MD HISTORICAL/NON ORDERABLE LABS Final Result [facility] [address] [place] [address], from Last 3 Months or Most Recently Relevant to Health Maintenance Insurance [facility] F[employer] OPTIONS (O D-SNP) DIYA SWANN [id number] Care Teams Vp Security Relationship Specialty Start Date End Date Hayley Mooney MD [address] [place] [id number] PCP - General Family Medicine 09/14/19
--- OUTSIDE RECORDS SUMMARY | 2025-05-02 07:48 | XMS_ITS | Encounter Summary ---
Author Organization [employer] Address [address] [facility] [address] [place] [address] Care Team Providers Care Machine Feeder Floorperson Name Role Phone Hayley Mooney MD Primary Care Provider + Encounter Details Date Type Department Care Team (Late st Contact Info) Description 12/09/2022 Abstract [facility] MEDICINE [address] [place] [address] Hayley Mooney MD [address] [place] [address] Social History Tobacco Use Types Packs/Day Years [...] Description 05/10/2025 9:30 AM EST Office Visit [facility] OPTOMETRY [address] [place] [address] Jory Mays, OD [address] [place] [address] 06/06/2025 9:00 AM EST Office Visit [facility] MEDICINE [address] [place], [place] [phone] Hayley Mooney MD [address] [place], [place] [phone] documented as of this encounter Procedures Procedure Name Priority Date/Time Associated Diagnosis Comments COLONOSCOPY Routine 04/03/2021 11:07 AM EDT documented in this encounter Results * Colonoscopy (04/03/2021 11:07 AM EDT) Colonoscopy Normal Normal Narrative Dorothy Higgins - 04/03/2021 11:07 AM EDT Recommended 3 year follow up ([facility]) Historical Provider [facility] Edited Result - Final documented in this encounter Visit Diagnoses Not on filedocumented in this encounter Care Teams Machine Feeder Floorperson Relationship Specialty Start Date End Date Hyaley Mooney MD [address] [place] [address] [phone] PCP - General Family Medicine 09/14/19 documented as of this encounter
--- OUTSIDE RECORDS SUMMARY | 2025-05-02 07:48 | XMS_ITS | Encounter Summary ---
Author Organization [employer] Address [address] [facility] [address] [place] [address] Care Team Providers Care Mercantile Agent Name Role Phone Hayley Mooney MD Primary Care Provider + Reason for Visit * Reason Onset Date Comments triage 11/01/2022 Encounter Details Date Type Department Care Team (Late st Contact Info) Description 11/01/2022 Telephone [facility] MEDICINE [address] [place] [address] Hayley Mooney MD [address] [place] [address] triage Social History Tobacco Use Types Packs/Day Years Used Date Smoking Tobacco: Never Smokeless Tobacco: Never Sex and Gender Information Value Date Recorded [...] suspected to have Coronavirus/COVID-19? No / Unsure 11/01/2022 12:45 PM EDT documented as of this encounter Miscellaneous Notes * Telephone Encounter - Yeu Gannon RN - 11/01/2022 12:25 PM EDT Triage call with [facility] Infectious Disease Technician [phone] Pt reports home care was applied over week end but, eyes are still itchy and slight redness/swelling of eyelids both eyes. Pt reports sclera is slightly pink. Advised pt to come to [facility] to be seen by provider and Pt agreed. Given hours of [place] and address. Insurance is verified as active prior to booking. Protocol Used: Eye - Allergy (Adult) Protocol-Based Disposition: See in Office or Video Visit within 3 Days Video visit not offered Positive Triage Question: * Patient wants to be seen * All higher-acuity triage questions were negative Care Advice Discussed: * Reassurance and Education - Eye Allergy * Wash off Allergens Daily * Apply a Cold Compress * Use Artificial Tears * Expected Course * Extra Home Care Advice - Avoiding Pollen * Reasons To Call Back - Itchy eyes aren't controlled in 2 days with continuous allergy treatment - You become worse * Telephone Encounter - Guero Banks - 11/01/2022 9:56 AM EDT Symptoms: Eye Allergy, Itching - No Rash Outcome: Schedule an urgent appointment (within 4 hours) or talk to a nurse or provider soon Reason: Severe itching now The caller accepted this outcome speaks namibian documented in this encounter Plan of Treatment Upcoming Encounters Date Type Department Care Team (Late st Contact Info) Description 05/10/2025 9:30 AM EST Office Visit [facility] OPTOMETRY [address] [place] [address] Davon, Jory, OD [address] [place] [address] 06/06/2025 9:00 AM EST Office Visit [facility] MEDICINE [address] [place] [address] Hayley Mooney MD [address] [place] [address] documented as of this encounter Visit Diagnoses Not on filedocumented in this encounter Care Teams Mercantile Agent Relationship Specialty Start Date End Date Hayley Mooney MD [address] [place] [address] PCP - General Family Medicine 09/14/19 documented as of this encounter
--- NOTE | 2025-05-02 07:49 | MHC.OFFVIS ---
Vital Signs 05/02/25 08:17 Height 5 ft 11 in Weight 145 lb 15.136 oz BMI 20.4 BP 124/61 Blood Pressure Location Rt brachial Position Sitting Pulse 79 Intake Visit Reasons: 6m FU of cirrhosis and colon polyps Intake Note: Patient 6m FU of cirrhosis and colon polyps. Discuss abdomen US results. Patient CC: reports no concerns. Normal BM. Denies diarrhea, constipation. ROS updated today. Imaging: abdomen US~ 01-22-2025 Hepatitis #3 scheduled~ 05-20-25 @ 8:30. Follow up w/Dr. Marina scheduled~ 06-12-25. Reheater Required: Yes Information Interpreted: clinical only [place] [place] Accompanied by: Self / Same As Patient Allergies bee pollen Allergy (Mild, Verified 05/02/25 08:23) Unknown Medication List - Last Reconciled 05/02/25 by Pedro Rader MD bisacodyl (Dulcolax (bisacodyl)) 20 mg (4 x 5 mg) PO ONCE 1 day cholecalciferol (vitamin D3) 25 mcg PO DAILY 90 days ergocalciferol (vitamin D2) 1,250 mcg PO QWEEK fluticasone propionate 50 mcg/actuation 1 spray intranasal DAILY losartan-hydrochlorothiazide 50-12.5 mg 1 tab PO DAILY polyethylene glycol 3350 (Miralax) 17 grams PO DAILY 1 day HPI HPI 6m FU of cirrhosis and colon polyps: Details: GI CLINIC VISIT FOR THIS 74-YEAR-OLD QATARI-SPEAKING MALE FOR FOLLOW-UP OF UNEXPLAINED WEIGHT LOSS - WT HAS BEEN STABLE OVER THE PAST 3 YEARS. TODAY'S VISIT ?[facility] [place] [facility] [facility],?[place] Patient 6m FU of cirrhosis and colon polyps. Discuss abdomen US results. Patient reports no concerns. Normal BM. Denies diarrhea, constipation. ROS updated today. Imaging: abdomen US~ 01-22-2025 Hepatitis #3 scheduled~ 05-20-25 @ 8:30. Follow up w/Dr. Marina scheduled~ 06-12-25. Patient denies any GI issues. Patient complain of coughing a lot. Complains of cough for a week, denies fever. Denies fatigue or change in appetite PAST VISITS: Colonoscopy results were reviewed with the patient - advised FU sigmoidoscopy in 1 year Patient 6 months follow up for Anal Condyloma (+),US ABD & Colonoscopy results. Denies abd pain and wt has been stable Lab tests and abd US results were reviewed with the patient. Appetite is good and has been eating very well Has been gaining a few lbs and weighed 147 lbs today (Increased from .141 lbs10 months ago) ? Denies problems with constipation. ? Complains of mild constipation and was prescribed something and has not been taking it. ? Has a BM 2-3 times a day and stools are sometimes soft and sometimes hard. ? Pt complains of symptoms of unintentional weight loss over the past few yrs - 154 lbs to 133 lbs on 09/14/19. ? Current weight is 132. ? Has been less active since he moved here. ? Patient denies abdominal pain, change in bowel habits, black stools or rectal bleeding - can have occasional diarrhea. ? Denies dysphagia, heartburn, nausea or vomiting or change in appetite. ? Patient denies major cardiac or pulmonary problems, history of loud snoring was sleep apnea. ? He denies having any surgeries in the past. ? He denies being on chronic anticoagulation. ? Pt denies having an EGD or a Colonoscopy in the past. ? Patient denies known family history of colon polyps, colon cancer or other GI malignancy. ? Positive FH of diabetes in multiple?cousins LABS IN [facility]:?03/28/20 Reviewed ? 10/13 antibody test for celiac sprue were negative, HIV and antibody testing for syphilis were negative. ? 09/20/19 stool occult blood x3 were negative. ? IMAGING STUDIES: 11/24/22 ABD US SHOWED: LIVER: The liver is normal in size. The liver contour is normal. Parenchymal echogenicity is normal but with a somewhat coarsened appearance. No focal hepatic lesion. There is no intrahepatic biliary duct dilatation seen. 01/16/20 ABD US SHOWED:? An anechoic cyst in the right hepatic lobe measuring 1 x 0.6 x 0.8 cm and no additional lesions were seen. ENDOSCOPIC STUDIES: 05/2023 [address] MARINA: Anoscopy There were no lesions or any condylomas seen. There was no abnormality in the anal lining. There was no bleeding. There was no fissure. There was no induration on digital exam 2020 COLONOSCOPY SHOWED: Rectum:? A 2 x 2 cms flat polyp at the anal verge raised with 2 cc of Orise solution (submucosal injection) and removed piece meal with a hot snare. Residual 1 cms polyp from past polypectomy - ablated with a hot snare. Ano-rectum:? Moderate internal hemorrhoids Two polyps removed Moderate diverticulosis seen in the sigmoid colon Moderate hemorrhoids on retroflexed exam. Plan:? Repeat Colonoscopy interval based on path results - in 2-3 years if polyps are adenomatous and due to hx of adenomatous colon polyps. BIOPSIES SHOWED: Rectum, polypectomy:? 10/30/19 EGD AND COLONOSCOPY SHOWED: ? STOMACH: Moderate diffuse gastric erythema with smal amounts of heme. Biopsies ? were obtained. A few 5 to 10 mm benign appearing nodules with central ? erosions in the antrum - biopsied. A linear erosion in the antrum. ? Three polyps removed during colonoscopy- a 4th polyp was not removed due to excessive length of proocedure ? Moderate to severe diverticulosis seen in the left colon ? Moderate hemorrhoids on retroflexed exam. ?BIOPSIES SHOWED: ? A. Small bowel, biopsies: Chronic duodenitis with foveolar metaplasia and without ? increased intraepithelial lymphocytes; negative for dysplasia/malignancy. ? B. Stomach, nodules, biopsies: Gastric mucosa with moderate active gastritis; positive ? for Helicobacter pylori organisms consistent with H. pylori gastritis; negative for ? intestinal metaplasia/dysplasia. ? C. Stomach, body, biopsies: Gastric mucosa with moderate active gastritis; positive ? for Helicobacter pylori organisms consistent with H. pylori gastritis; negative for ? intestinal metaplasia/dysplasia. ? D. Colon, ileocecal valve polyp, polypectomy: Fragments of tubular adenoma. ? E. Colon, sigmoid polyp, polypectomy: Fragments of hyperplastic polyp. ? F. Rectum, polyp, polypectomy: Condyloma acuminatum (AIN 1). ? Pt had fulgration of Anal condyloma on 01/08/[address] Marina. 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 Plan: Repeat Colonoscopy in 3-5 years if polyps are adenomatous and 10 year if polyps are hyperplastic. BIOPSIES SHOWED: Colon, rectal polyp: Condyloma acuminatum with low-grade squamous intraepithelial lesion (mild dysplasia, AIN 1 [facility] Medical History (Updated 06/07/24 @ 09:22 by Syd Marina MD) History of anal lesion Cirrhosis Anal intraepithelial neoplasia I Chronic constipation History of Helicobacter pylori infection History of adenomatous polyp of colon Anal condyloma Hypertension Weight loss Surgical History History of hemorrhoidectomy History of esophagogastroduodenoscopy (EGD) Hx of colonoscopy Family History Father Liver problem Mother Alzheimer disease Sister History of breast cancer Social History Are you a primary patient centered care specialist to a significant other at home: No Do you presently have visiting nurse or other home services: No Alcohol intake: current Alcohol intake frequency: does not drink Patient Tobacco Use Status: Former Tobacco user Tobacco use type: Cigarette Review of Systems Const Denies fever(s), Denies headache(s) and Denies weight loss Eyes Denies eye discharge and Denies irritation ENT Reports Normal hearing present, Denies dysphagia, Denies dizziness and Denies headache(s) Card Denies chest pain, Denies leg edema and Denies dyspnea on exertion Resp Denies cough, Denies dyspnea on exertion and Denies wheezing GI Denies abdominal pain, Denies change in bowel habits, Denies dysphagia and Denies heartburn Denies dysuria and Reports urinary frequency Musc Denies back pain and Denies arthralgias Skin/Breast Denies pruritus, Denies rash and Denies jaundice Neuro Reports Normal hearing present, Denies Abnormal speech present, Denies dizziness, Denies headache(s) and Denies seizure-like activity Psych Denies anxiety, Denies depression and Denies panic attacks Endo Denies cold intolerance, Denies flushing and Denies heat intolerance Damian/Lymph Denies easy bleeding and Denies easy bruising Aller/Immun Denies wheezing Physical Exam Vital Signs: Last Vital Signs Pulse 79 05/02/25 08:17 BP 124/61 05/02/25 08:17 BMI result Body Mass Index 20.4 Const General: healthy appearing and no acute distress Nutritional Appearance: average body habitus Orientation/consciousness: patient oriented x3 Limitations: language barrier HEENT Head: Yes normal to inspection Ears: hearing grossly normal bilaterally Eyes Sclerae: sclerae normal Pupils: Equal, round and reactive pupils present Neck Neck: Yes normal visual inspection Chest Chest palpation & inspection: normal inspection of the chest Resp Effort & Inspection: normal respiratory effort Auscultation: clear to auscultation bilaterally Cardio Palpation: normal PMI Rate: regular rate Rhythm: regular rhythm Heart sounds: S1 normal heart sound present, S2 normal heart sound present and no murmurs GI Palpation (GI): Soft to palpation, nontender and No hepatosplenomegaly present Auscultation: normal bowel sounds Rectal Exam - Male: Yes deferred Skin General skin exam: no rashes or lesions noted Neuro General: patient oriented x3, gait normal and moves all extremities Cranial nerves: Yes Equal, round and reactive pupils present and Yes Normal hearing present Speech: No Abnormal speech present Psych Appearance: grossly normal Mental Status: mental status grossly normal Assessment & Plan Assessment & Plan (1) History of Helicobacter pylori infection: Comment: Pt was treated with amoxicillin, clarithromycin and twice daily omeprazole in Oct, 2019. H PYLORI AG, STOOL - negative on 01/16/20 Code(s): Z86.19 - Personal history of other infectious and parasitic diseases Category: Medical (2) Cirrhosis of liver without ascites: Code(s): K74.60 - Unspecified cirrhosis of liver Category: Medical (3) History of adenomatous polyp of colon: Comment: 10/30/2019 A 12-15 mm adenomatous polyp overlying the ICV was removed Repeat colonoscopy is advised in 1 year to check polypectomy site in the cecum. 04/16 Two rectal polyps removed during colonoscopy. Condylomata acuminata on bx. FU colon in 3 yrs (due 03/2024). Code(s): Z86.010 - Personal history of colon polyps Category: Medical (4) Chronic constipation: Code(s): K59.09 - Other constipation Category: Medical (5) History of anal lesion: Code(s): Z87.19 - Personal history of other diseases of the digestive system Category: Medical Plan 74-year-old Serbian-speaking male followed in GI for evaluation of unexplained weight loss without any change in his p.o. intake. Patient denied any upper or lower GI symptoms and stool hemoccults x3 were negative. He admitted to cold intolerance and increased urinary frequency. Lab evaluation was negative for diabetes, thyroid disease, HIV and syphilis. 10/30/19 EGD showed gastritis related to Helicobacter pylori infection. Pt was treated and FU stool antigen was negative for H Pylori. An adenomatous polyp was removed during same-day colonoscopy. 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 Cirrhosis likely due to past ETOH abuse.? MELD score is 8 PT admits to past heavy ETOH abuse and quitted in 1983. Hepatitis B serologies, JORGE and celiac serologies were normal 11/15/24 Schedule a Flex Sig with colon prep - FU of rectal polyp/condyloma Hep B vaccine (1st injection) Schedule Abd US for HCC surveillance. 12/2024 ABD US SHOWED: 1. Normal-sized liver coarsened hepatic echotexture reflecting hepatic steatosis or diffuse hepatocellular disease. No focal hepatic lesions. 05/02/25 Check labs and abd US - schedule Abd US - FU of liver cirrhosis Pt advised to schedule a Flex Sig with colon prep - FU of rectal polyp - anal condyloma on biopsy. FU in 6 months Orders: Orders US abdomen limited Today K74.60 - Unspecified cirrhosis of liver Complete Blood Count no Diff Today K74.60 - Unspecified cirrhosis of liver Comprehensive Met. Panel Today K74.60 - Unspecified cirrhosis of liver Vitamin B12 and Folate Today K74.60 - Unspecified cirrhosis of liver Vitamin D 25-OH Total Today K74.60 - Unspecified cirrhosis of liver Prothrombin Time INR Today K74.60 - Unspecified cirrhosis of liver Liver Fibrosis Pnl Today K74.60 - Unspecified cirrhosis of liver Medications: New peg 3350-electrolytes 236-22.74-6.74 -5.86 gram (Golytely) until fecal effluent is clear; do not exceed a total volume [id number] mL 240 mL PO Q10M 4,000 mL 0RF colon prep Coding Level of Care Code Est Pt Level 3 (12319) Diagnoses History of Helicobacter pylori infection Z86.19 Cirrhosis of liver without ascites K74.60 History of adenomatous polyp of colon Z86.010 Chronic constipation K59.09 History of anal lesion Z87.19 Time Spent (min) 18
[2025-05-02 08:17] VITALS: BP 124/61; PULSE 79; BMI 20.4
== END 2025-05-02 09:01 | disposition home or self-care (01) ==
LOC: HO.HGI 07:46
PROVIDERS: PCP Internal Medicine; Visit Provider Internal Medicine Gastroenterology
DX: Z86.19 Personal history of other infectious and parasitic diseases (principal); K74.60 Unspecified cirrhosis of liver; Z86.0100 Personal history of colon polyps, unspecified; K59.09 Other constipation; Z87.19 Personal history of other diseases of the digestive system
CPT/HCPCS: 99213

== ENCOUNTER 2025-05-20 07:58 | Outpatient (AMB) | payer OTHER, SELFPAY ==
--- OUTSIDE RECORDS SUMMARY | 2025-05-20 08:01 | XMS_ITS | Encounter Summary ---
Author Organization [employer] Address [address] [place] [address] Care Team Providers Care Refractory Products Supervisor Name Role Phone Hayley Mooney MD Primary Care Provider + Reason for Visit * Reason Onset Date Comments triage 11/01/2022 Encounter Details Date Type Department Care Team (Late st Contact Info) Description 11/01/2022 Telephone [facility] MED[facility] [address] [place] [address] Hayley Mooney MD [address] [place] [address] triage Social History Tobacco Use Types Packs/Day [...] encounter Miscellaneous Notes * Telephone Encounter - Yue Gannon RN - 11/01/2022 12:25 PM EDT Triage call with [facility] [facility] [id number] Pt reports home care was applied over week end but, eyes are still itchy and slight redness/swelling of eyelids both eyes. Pt reports sclera is slightly pink. Advised pt to come to [facility] to be seen by provider and Pt agreed. Given hours of WIC and address. Insurance is verified as active [...] now The caller accepted this outcome speaks togolese documented in this encounter Plan of Treatment Upcoming Encounters Date Type Department Care Team (Late st Contact Info) Description 06/06/2025 9:00 AM EST Office Visit [facility] [address] [place] [address] Hayley Mooney MD [address] [place] [address] documented as of this encounter Visit Diagnoses Not on filedocumented in this encounter Care Teams Refractory Products Supervisor Relationship Specialty Start Date End Date Hayley Mooney MD [address] [place] [address] PCP - General Family Medicine 09/14/19 documented as of this encounter
--- OUTSIDE RECORDS SUMMARY | 2025-05-20 08:01 | XMS_ITS | Clinical Summary ---
Author Organization [facility] [employer] [facility] [employer] Address [address] [facility] [address] [place] [address] Care Team Providers Care High Lift Driver Name Role Phone Hayley Mooney MD Primary [...] will bring Hep B immunization profile from manager bench. 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); PVD (posterior vitreous detachment), right eye; Presbyopia 05/10/2025 Travel 05/02/2025 Orders Only GENERIC EXTERNAL DATA DEPARTMENT Provider, Generic External Data from Last 3 Months Immunizations Immunization Administration Dates Next Due Influenza [...] Description 06/06/2025 9:00 AM EST Office Visit [facility] MEDICINE [address] [place] [address] Hayley Mooney MD [address] [place] [address] Health Maintenance Due Date Last Done Comments CT Colonography 1950 FIT DNA/Cologuard 1950 FIT 1950 Sigmoidoscopy 1950 Hepatitis A Vaccines (1 of 2 - Risk 2-dose series) 1969 Pneumococcal Vaccine: 50+ Years (1 of 1 - PCV) 2000 RSV Patients and Patients Aged 60 years or older (1 - Risk 50-74 years 1-dose series) 2000 Zoster Vaccines (1 of 2) 2000 FOBT 09/19/2020 09/20/2019 Colonoscopy 04/03/2024 04/03/2021 Colorectal Cancer Screening 04/03/2024 COVID-19 Vaccine ( season) 2025 03/05/2021, 02/12/2021 Influenza Vaccine (#1) 2025 03/28/2022, 2020 Hepatitis B Vaccines (3 of 3 - Risk 3-dose series) 05/18/2025 12/13/2024, 11/15/2024 SDOH Screening 11/12/2025 11/12/2024 Alcohol/Substance Use Screening 11/22/2025 11/22/2024 Depression Screening 11/22/2025 11/22/2024, 11/23/19 Tobacco Screening 11/22/2025 11/22/2024 Lipid Panel 11/22/2029 [...] Procedure Name Priority Date/Time Associated Diagnosis Comments LIVER FIBROSIS, FIBROTEST ACTITEST PANEL Routine 05/02/2025 9:36 AM EST VITAMIN B12/FOLATE, SERUM PANEL Routine 05/02/2025 9:36 AM EST VITAMIN D,25-OH,TOTAL,IA Routine 05/02/2025 9:36 AM EST COMPREHENSIVE METABOLIC PANEL Routine 05/02/2025 9:36 AM EST PROTHROMBIN TIME-INR Routine 05/02/2025 9:36 AM EST CBC Routine 05/02/2025 9:36 AM EST LIPID PANEL WITH REFLEX TO DIRECT LDL Routine 11/22/2024 7:06 AM EDT Pure hypercholesterolemia ZZZ HISTORICAL HEPATITIS C ANTIBODY Routine 05/05/2021 8:10 AM EST COLONOSCOPY Routine 04/03/2021 11:07 AM EDT ZZZ HISTORICAL OCCULT BLOOD STOOL X3 Routine 09/20/2019 12:00 AM EDT from Last 3 Months or Most Recently Relevant to Health Maintenance Results * Vitamin D, 25-Hydroxy, Total, Immunoassay (05/02/2025 9:36 AM EST) Vitamin D 25-OH Total 39.7 >30 ng/mL [facility] Comment: Health Based Reference Values*< 20 ng/mL [id number] ng/mL Insufficient> 30 ng/mL Sufficient*Nuris MORLEY. N Engl J Med. 2007;357:266-280There is no well-established upper level of normal vitamin Dlevels. Some laboratories use 50 ng/mL as an upper limit ofnormal. However, toxicity is patient-dependent and may occurat any level. Careful correlation with the patient'spresentation is necessary and, if there is concern forvitamin D toxicity, treatment should be consideredirrespective of the serum level.Care must be taken in interpreting Vitamin D results fromdifferent laboratories and methodologies. Published datademonstrated that results from patients undergoinghemodialysis may show a negative bias when tested withvarious automated 25-OH vitamin D assays when compared toLC-MS/MS.When testing samples from patients whose predominant form ofVitamin D is Vitamin D2, such as patients receiving VitaminD2 supplementation, results that are subtherapeutic shouldbe confirmed with another method such as LC-MS/MS. 05/02/2025 9:36 AM EST 05/02/2025 9:36 AM EST us Generic External Data Provider LAB BLOOD ORDERAB LES Final Result [facility] [address] [place] [address] [phone] * Vitamin B12 (Cobalamin) and Folate Panel, Serum (05/02/2025 9:36 AM EST) Vitamin B12 267 200 - 900 pg/mL [facility] Comment:NORMAL 200-900 PG/ML INDETERMINATE 160-199 PG/ML DEFICIENT < 160 PG/ML Folate 8.4 > or = 4.0 ng/mL [facility] Comment:Reference Values:> o r = 4.0 ng/mL< 4.0 ng/mL suggests folate deficiency Methotrexate, aminopterin and folinic acid(leucovorin) are chemotherapeutic agents whose molecularstructures are similar to folate; therefore, the Architectfolate assay cannot be used for patients using these drugs. 05/02/2025 9:36 AM EST 05/02/2025 9:36 AM EST Generic External Data Provider LAB BLOOD ORDERAB LES Final Result Performing Organization Address [facility] Co de Phone Number [facility] [address] [place] [phone] * (ABNORMAL) Liver Fibrosis (HCV), FibroTest-ActiTest Panel (05/02/2025 9:36 AM EST) Liver Fibrosis Score 0.56 [facility] Liver Fibrosis Stage F2 [facility] Liver Fibrosis Interpretation SEE NOTE [facility] Comment:moderate fibrosisFib ro Test Score (f) Metavir Score f>=0 and f<=0.21 : F0 (no fibrosis)f>0.21 and f<=0.27 : F0-F1 (no fibrosis)f>0.27 and f<=0.31 : F1 (minimal fibrosis)f>0.31 and f<=0.48 : F1-F2 (minimal fibrosis)f>0.48 and f<=0.58 : F2 (moderate fibrosis)f>0.58 and f<=0.72 : F3 (advanced fibrosis)f>0.72 and f<=0.74 : F3-F4 (advanced fibrosis)f>0.74 and f<=1.00 : F4 (severe fibrosis) Nec Inflam Act Score 0.04 [facility] Nec Inflam Act Grade A0 [facility] Nec Inflam Act Interpretation SEE NOTE [facility] Comment:no activityActiTest Score (a) Metavir Score a>=0 and a<=0.17 : A0 (no activity)a>0.17 and a<=0.29 : A0-A1 (no activity)a>0.29 and a<=0.36 : A1 (minimal activity)a>0.36 and a<=0.52 : A1-A2 (minimal activity)a>0.52 and a<=0.60 : A2 (significant activity)a>0.60 and a<=0.62 : A2-A3 (significant activity)a>0.62 and a<=1.00 : A3 (severe activity) EHE-Zafgd-6-Macroglo bulin 285(A) 106 - 279 mg/dL [facility] FIB-Haptoglobin 104 43 - 212 mg/dL [facility] FIB-Apolipoprotein A1 148 94 - 176 mg/dL [facility] FIB-Total Bilirubin 0.9 0.2 - 1.2 mg/dL [facility] FIB-GGT 11 3 - 70 U/L [facility] FIB-ALT 10 9 - 46 U/L [facility] Reference ID [id number] [facility] Footnote SEE NOTE [facility] Comment: The reliability of results is dependent on compliance withthe preanalytical and analytical conditions recommended byBioPredictive. The tests have to be deferred for: acutehemolysis, acute hepatitis, acute inflammation, extrahepatic cholestasis. The advice of a specialist should besought for interpretation in chronic hemolysis and Gilbert'ssyndrome. The test interpretation is not validated in livertransplant patients. Isolated extreme values of one of thecomponents should lead to caution in interpreting theresults. In case of discordance between a biopsy result farhad test, it is recommended to seek the advice of aspecialist. The causes of these discordances could be due toa flaw of the test or to a flaw in the biopsy: i.e. a liverbiopsy has a 33% variability rate for one fibrosis stage.FibroTest is interpretable for chronic hepatitis B and C,alcoholic and non alcoholic steatosis. ActiTest isinterpretable for chronic hepatitis B and C.The performance characteristics have been determined by[employer] [facility]. Ithas not been cleared or approved by the U.S. Food and DrugAdministration. Performance characteristics refer to theanalytical performance of the test.[employer], the associated logo, [employer] and all associated [employer] are theregistered trademarks of [employer]. All third partymarks - (R) and (TM) - are the property of their respectiveowners. (C) 2941-6620 [employer]. Allrights reserved.THIS TEST WAS PERFORMED AT:[facility]/[id number] [place] [address]WONWDSHUKRI BRADLEY MD,PHD,LUCY 05/02/2025 9:36 AM EST 05/02/2025 9:36 AM EST us Generic External Data Provider LAB BLOOD ORDERAB LES Final Result [facility] [address] [place] [phone] * Prothrombin Time-INR (05/02/2025 9:36 AM EST) Prothrombin Time 12.3 11.2 - 13.5 SEC [facility] INTERNATIONAL NORM RATIO 1.0 0.9 - 1.1 [facility] Comment:INTERNATIONAL NORMAL IZED RATIO (INR) REFERENCE RANGES Reference RangeFor patients not on anticoagulant therapy: 0.9 - 1.1INR ranges for oral anticoagulanttherapy:For prevention and treatment of venous thrombosis and pulmonary embolism: 2.0 - 3.0For acute myocardial infarction with aspirin therapy: 2.0 - 3.0For acute myocardial infarction without aspirin therapy: 3.0 - 4.0For patients with mechanical prosthetic heart valves: 2.5 - 3.5 05/02/2025 9:36 AM EST 05/02/2025 9:36 AM EST us Generic External Data Provider LAB BLOOD ORDERAB LES Final Result Performing Organization Address City/[facility]/ZIP Co de Phone Number [facility] [address] [place] [address] [phone] * (ABNORMAL) CBC (05/02/2025 9:36 AM EST) White Blood Count 4.3(L) 4.8 - 10.8 X10*3/uL [facility] Red Blood Count 5.04 4.60 - 5.80 X10*6/uL [facility] Hemoglobin 14.0 14.0 - 18.0 g/dl [facility] Hematocrit 43.8 42.0 - 52.0 % [facility] Mean Corpuscular Volume 86.9 80.0 - 98.0 fL [facility] Mean Corpuscular Hemoglobin 27.8 27.0 - 33.0 pg [facility] Mean Corpuscular HGB Conc 32.0 31.0 - 36.0 g/dl [facility] Red Cell Distribution Width 13.3 11.0 - 16.0 % [facility] Platelet Count 151(L) 160 - 400 X10*3/uL [facility] Mean Platelet Volume 9.4 9.4 - 12.4 fL [facility] NRBC Pct Auto 0.0 0.0 - 0.2 /100WBC [facility] NRBC Abs Auto 0.000 0.0 - 0.012 X10*3/uL [facility] 05/02/2025 9:36 AM EST 05/02/2025 9:36 AM EST us Generic External Data Provider LAB BLOOD ORDERAB LES Final Result Performing Organization Address City/[facility]/ZIP Co de Phone Number [facility] [address] [place] [address] [phone] * (ABNORMAL) Comprehensive Metabolic Panel (05/02/2025 9:36 AM EST) Sodium 141 135 - 145 mmol/L [facility] Potassium 4.1 3.3 - 5.1 mmol/L [facility] Chloride 107 96 - 108 mmol/L [facility] Carbon Dioxide 29 22 - 29 mmol/L [facility] Anion Gap 9(L) 12 - 20 [facility] Urea Nitrogen (BUN) 24(H) 9 - 16 mg/dL [facility] Creatinine, Serum 0.97 0.5 - 1.4 mg/dL [facility] Estimated Glomerular Filt Rate >60 [facility] Comment:Chronic Kidney Disea se: Estimated GFR < 60 mL/min/1.77e7Atfein Kidney Disease: Estimated GFR < 15 mL/min/1.73m2 Glucose 96 60 - 115 mg/dL [facility] Calcium 9.3 8.4 - 10.2 mg/dL [facility] Bilirubin, Total 1.0 0.0 - 1.0 mg/dL [facility] Aspartate Amino Transferase 27 5 - 37 U/L [facility] Alanine Aminotransferase 19 0 - 40 U/L [facility] Total Protein 7.3 6.5 - 8.0 g/dL [facility] Albumin Level 4.4 3.5 - 5.0 g/dL [facility] Alkaline Phosphatase 60 39 - 117 U/L [facility] 05/02/2025 9:36 AM EST 05/02/2025 9:36 AM EST us Generic External Data Provider LAB BLOOD ORDERAB LES Final Result [facility] [address] [place] [address] [phone] * (ABNORMAL) Lipid Panel with Reflex to Direct LDL (11/22/2024 7:06 AM EDT) Triglycerides 88 <150 mg/dL [facility] Comment:Desirable Triglyceri de: less than 150 mg/dLBorderline High Triglyceride 150-199 mg/dLHigh Triglyceride: 200-499 mg/dLVery High Triglyceride: greater than or equal to 5OO mg/dL Cholesterol 188 <200 mg/dL [facility] Comment:Desirable Cholestero l: less than 200 mg/dLBorderline High Cholesterol: 200-239 mg/dLHigh Cholesterol: greater than 239 mg/dL LDL Cholesterol Calculated 123(H) <100 mg/dL [facility] Comment:Desirable LDL: less than 100 mg/dLNear Optimal/Above Optimal LDL: 110- 129 mg/dLBorderline High LDL: 130-159 mg/dLHigh LDL: 160-189 mg/dLVery High LDL: greater than or equal to 190 mg/dL HDL Cholesterol 48 >40 mg/dL [facility] Comment:Desirable HDL: great er than 40 mg/dL Note: This HDL assay may give artificially low results in patients with liver disease. Blood 11/22/2024 7:06 AM EDT 11/22/2024 7:06 AM EDT Hayley Mooney MD LAB BLOOD ORDERABLES Fin al Result [facility] [address] [place] [address] [phone] * Hepatitis C Antibody (05/05/2021 8:10 AM EST) Hepatitis C Antibody Nonreactive Nonreactive [facility] Comment: Antibodies to HCV not detected; does not exclude early acute HCV infection. 05/05/2021 8:10 AM EST us Historical Provider HISTORICAL/NON ORDERABLE LABS Final Result Performing Organization Address City/[facility]/ZIP Co de Phone Number [facility] [address] * Colonoscopy (04/03/2021 11:07 AM EDT) Colonoscopy Normal Normal Narrative Dorothy Higgins - 04/03/2021 11:07 AM EDT Recommended 3 year follow up ([facility]) us Historical Provider HEALTH MAINTENANCE Edited Result - Final * OCCULT BLOOD STOOL X3 (09/20/2019 12:00 AM EDT) OCCULT BLOOD STOOL-1 NEG NEG [facility] OCCULT BLOOD STOOL-1 DATE 09/19/19 AM [facility] OCCULT BLOOD STOOL-2 NEG NEG [facility] OCCULT BLOOD STOOL-2 DATE 09/19/19 PM [facility] OCCULT BLOOD STOOL-3 NEG NEG [facility] OCCULT BLOOD STOOL-3 DATE 09/20/19 AM [facility] 09/20/2019 us Hayley Mooney MD HISTORICAL/NON ORDERABLE LABS Final Result [facility] [address] from Last 3 Months or Most Recently Relevant to Health Maintenance [facility]O D-SNP[facility] DIYA SWANN [id number] Care Teams High Lift Driver Relationship Specialty Start Date End Date Hayley Mooney MD [address] [place] [address] GUSTAVO Russell [address] PCP - General Family Medicine 09/14/19
--- OUTSIDE RECORDS SUMMARY | 2025-05-20 08:01 | XMS_ITS | Encounter Summary ---
Author Organization [employer] Address [address] [facility] 7t [place] [address] Care Team Providers Care Nuclear Medicine Tech Name Role Phone Hayley Mooney MD Primary Care Provider + Encounter Details Date Type Department Care Team (Late st Contact Info) Description 12/09/2022 Abstract [facility] MEDICINE [address] [place] [address] [phone] Hayley Mooney MD [address], [place] [phone] Social History Tobacco Use Types Packs/Day Years [...] Description 06/06/2025 9:00 AM EST Office Visit [facility] MEDICINE [address] [place] [address] [phone] Hayley Mooney MD [address], [place] [phone] documented as of this encounter Procedures Procedure Name Priority Date/Time Associated Diagnosis Comments COLONOSCOPY Routine 04/03/2021 11:07 AM EDT documented in this encounter Results * Colonoscopy (04/03/2021 11:07 AM EDT) Colonoscopy Normal Normal Narrative Dorothy Higgins - 04/03/2021 11:07 AM EDT Recommended 3 year follow up ([facility] [place] us Historical Provider [employer] MAINTENANCE Edited Result - Final documented in this encounter Visit Diagnoses Not on filedocumented in this encounter Care Teams Nuclear Medicine Tech Relationship Specialty Start Date End Date Hayley Mooney MD [address] [place] [phone] PCP - General Family Medicine 09/14/19 documented as of this encounter
[2025-05-20 08:26] VITALS: BP 120/63; PULSE 86; O2SAT 96
--- NOTE | 2025-05-20 08:26 | A.OFFVIS_ITS ---
Vital Signs 05/20/25 08:26 BP 120/63 Blood Pressure Location Rt brachial Position Sitting Pulse 86 Pulse Source Pulse Oximeter Pulse Oximetry (%) 96 Oxygen Delivery Method Room Air Intake Visit Reasons: Hep B #3 Organic Section Technical Lead Required: Yes Organic Section Technical Lead Name: Sherine Irizarry Allergies bee pollen Allergy (Mild, Verified 05/20/25 08:30) Unknown PFSH Medical History (Updated 06/07/24 @ 09:22 by Syd Ragsdale MD) History of anal lesion Cirrhosis Anal intraepithelial neoplasia I Chronic constipation History of Helicobacter pylori infection History of adenomatous polyp of colon Anal condyloma Hypertension Weight loss Surgical History History of hemorrhoidectomy History of esophagogastroduodenoscopy (EGD) Hx of colonoscopy Family History Father Liver problem Mother Alzheimer disease Sister History of breast cancer Social History Are you a primary home health aide caregiver to a significant other at home: No Do you presently have visiting nurse or other home services: No Alcohol intake: current Alcohol intake frequency: does not drink Patient Tobacco Use Status: Former Tobacco user Tobacco use type: Cigarette Immunizations Engerix-B (PF) 20 mcg/mL intramuscular suspension Performing Provider: Pedro Rader MD Performing Location: [facility] Administered by: Kellie Bazzi RN on 05/20/25 08:27 Dose Route Admin Location Dispensed Lot Number Expiration Date [facility] Refrigeration Supervisor 1 mL IM Right Deltoid 1 mL [id number] 06/05/27 21791-589-04 [employer] Total Dispensed Waste 1 mL 0 % VIS Given Date VIS Provided VIS Publication Date 05/20/25 Single Vaccine 22 Eligibility Eligibility Date Funding Source Not [facility] Eligible 05/20/25 Private Assessment & Plan Assessment & Plan (1) Immunization due: Code(s): Z23 - Encounter for immunization Orders: Orders Hepatitis B Adult Immunization Today Z23 - Encounter for immunization Coding Level of Care Code Established Pt Est Pt Level 1 (91783) Patient Type Established Diagnoses Immunization due Z23 Comment Nurse Visit Only
== END 2025-05-20 08:42 | disposition home or self-care (01) ==
LOC: HO.HGI 07:59
PROVIDERS: PCP Internal Medicine; Visit Provider Internal Medicine Gastroenterology
DX: Z23 Encounter for immunization (principal)

== ENCOUNTER → 2025-05-20 07:58 | Outpatient (BNVA) | payer OTHER, SELFPAY | PROVIDERS: PCP Internal Medicine; Visit Provider Internal Medicine Gastroenterology | DX: Z23 Encounter for immunization (principal); K74.60 Unspecified cirrhosis of liver | CPT/HCPCS: 90471; 90746; 99211 ==

== ENCOUNTER 2025-06-05 09:19 | Outpatient (REF) | payer OTHER, SELFPAY ==
--- NOTE | ~2025-06-05 | US_ITS ---
CLINICAL HISTORY: K74.60 - CIRRHOSIS OF LIVER W O ASCITES --- Additional Notes or Special Instructions: screen for HCC US abdomen limited with duplex and color Doppler Comparison: US - US ABDOMEN LIMITED - 01/22/25 08:34 EDT US/SR - US ABDOMEN LIMITED - 05/22/24 08:00 EST US/SR - US ABDOMEN LIMITED - 11/25/23 08:45 EDT US/SR - US ABDOMEN LIMITED - 11/24/22 08:12 EDT Findings: Visualized pancreas is normal. Tail obscured by bowel gas. Liver is normal in size and echotexture. Right lobe length 13.1 cm. No focal hepatic masses. Common duct 2.0 mm diameter. Gallbladder is physiologically distended. No gallstones, sludge or wall abnormalities. No gallbladder wall thickening. No pericholecystic fluid. No sonographic Max sign. Main portal vein antegrade. Right kidney measures, 10.1 cm in length. Normal cortical width and echotexture. No hydronephrosis calculus or mass. Impression: 1. Normal right upper quadrant ultrasound This document has been electronically signed by: Enrique Billy MD on 06/06/2025 09:52:00
== END 2025-06-05 09:20 | disposition home or self-care (01) ==
LOC: HO.US 09:19
PROVIDERS: PCP Internal Medicine; Visit Provider Internal Medicine Gastroenterology
DX: K74.60 Unspecified cirrhosis of liver (principal)
CPT/HCPCS: 76705

== ENCOUNTER → 2025-06-05 09:21 | Outpatient (BNV) | payer OTHER, SELFPAY | PROVIDERS: PCP Internal Medicine; Visit Provider Radiology Diagnostic Radiology | DX: K74.60 Unspecified cirrhosis of liver (principal) | CPT/HCPCS: 76705 ==

== ENCOUNTER 2025-06-12 08:51 | Outpatient (AMB) | payer OTHER, SELFPAY ==
--- NOTE | 2025-06-12 08:56 | A.OFFVIS_ITS ---
Vital Signs 06/12/25 09:05 Height 5 ft 11 in Weight 150 lb 4 oz BMI 21.0 BP 132/63 Blood Pressure Location Rt brachial Position Sitting Pulse 84 Intake Visit Reasons: One year follow-up anal condyloma Intake Note: Patient presents for yearly follow-up for anal condyloma. Pt c/o; reports no complaints. DI: 06/06/25-Abd US Glass Ribbon Machine Operator Assistant Required: Yes Glass Ribbon Machine Operator Assistant Language: [employer] Dyer Services: Glass Ribbon Machine Operator Assistant Offered & Declined Accompanied by: Self / Same As Patient Allergies bee pollen Allergy (Mild, Verified 06/12/25 09:05) Unknown HPI HPI One year follow-up anal condyloma: Details: He has a history of an anal condyloma with AIN I. This was seen incidentally on his hemorrhoidectomy specimen in 2020. He is here for a surveillance anoscopy. I had last seen him in the office for anoscopy a year ago. He denies any complaints with regards to his anus at this time. He denies bleeding or pain. [facility] Medical History (Updated 06/07/24 @ 09:22 by Syd Ragsdale MD) History of anal lesion Cirrhosis Anal intraepithelial neoplasia I Chronic constipation History of Helicobacter pylori infection History of adenomatous polyp of colon Anal condyloma Hypertension Weight loss Surgical History History of hemorrhoidectomy History of esophagogastroduodenoscopy (EGD) Hx of colonoscopy Family History Father Liver problem Mother Alzheimer disease Sister History of breast cancer Social History Are you a primary healthcare social worker to a significant other at home: No Do you presently have visiting nurse or other home services: No Alcohol intake: current Alcohol intake frequency: does not drink Patient Tobacco Use Status: Former Tobacco user Tobacco use type: Cigarette Review of Systems Const Denies chills and Denies fever(s) Card Denies chest pain, Denies dyspnea and Denies dyspnea on exertion Resp Denies cough, Denies dyspnea and Denies dyspnea on exertion GI Denies hematochezia and Denies change in bowel habits Denies hematuria and Denies difficulty urinating Musc Denies back pain and Denies limited range of motion Neuro Denies focal weakness and Denies convulsions Psych Denies depression and Denies mood swings Physical Exam Const General: comfortable and no acute distress Orientation/consciousness: patient oriented x3 Neck Neck: Yes no lymphadenopathy Resp Auscultation: clear to auscultation bilaterally Cardio Rhythm: regular rhythm GI Other: Rectal exam does not reveal any perianal lesions Palpation (GI): Soft to palpation, nontender and no guarding Neuro General: patient oriented x3 Office Procedures Anoscopy He was in kneeling walter-knife position. The anoscope was gently inserted. A full examination of the anal canal was done. He had a internal external hemorrhoids on the left which was prominent. I did not see any lesions. I did not see any ulceration or abnormal looking anal lining. There was no bleeding to induration on digital exam. [id number] Assessment & Plan Assessment & Plan (1) History of anal lesion: Code(s): Z87.19 - Personal history of other diseases of the digestive system Category: Medical Plan: He has a history of condyloma and AIN 1 in 2020. Repeat examination including anoscopy does not reveal any suggestion of any new lesion. I told him that in view of his history, I will see him again in about a year to repeat the anoscopy and examination. He is comfortable with the plan He feels well overall and does not describe any changes with regards to his anus. Coding Level of Care Code Est Pt Level 3 (98116) Diagnoses History of anal lesion Z87.19 CPT Codes Details - CPT: 27995-Tqgpiwcg ([id number])
[2025-06-12 09:05] VITALS: BP 132/63; PULSE 84; BMI 21.0
--- OUTSIDE RECORDS SUMMARY | 2025-06-12 09:23 | XMS_ITS | Clinical Summary ---
Author Organization [employer] Address [address] [facility] [address] [place] [address] Care Team Providers Care Warehouse Receiving Clerk Name Role Phone Hayley Mooney MD Primary Care Provider + Allergies Active Allergy Reactions Criticality Noted Date Comments Bee Pollen Unknown Low 11/10/2023 Other Reaction(s): Unknown Medications losartan-hydroCHL OROthiazide (Hyzaar) 50-12.5 MG tabletIndications :Essential hypertension TAKE 1 TABLET BY MOUTH ONCE DAILY IN THE MORNING 90 tablet 3 025 Active D3-1000 25 MCG (1000 UT) capsule Take 1 capsule by mouth Once per day. 025 Active fluticasone (Flonase) 50 MCG/ACT nasal sprayIndications: Allergic conjunctivitis of both eyes and rhinitis Administer 1-2 sprays into each nostril Once per day. Shake gently. Before first use, prime pump. After use, clean tip and replace cap. 16 g 2 5 12:31 PM EST 025 2025 Active ammonium lactate (Amlactin) 12 % cream Apply topically if needed for dry skin. 385 g 1 5 12:31 PM EST 025 2025 Active ketotifen (Zaditor) 0.025 % ophthalmic solutionIndicatio ns:Allergic conjunctivitis of both eyes and rhinitis Administer 1 drop into both eyes 2 times daily. 10 mL 2 023 2024 Discontinued(T herapy completed) cetirizine (ZyrTEC) 10 MG tablet Take 1 tablet (10 mg) by mouth Once per day. 90 tablet 3 024 2024 Discontinued(T herapy completed) fluticasone (Flonase) 50 MCG/ACT nasal sprayIndications: Allergic conjunctivitis of both eyes and rhinitis Administer 1-2 sprays into each nostril Once per day. Shake gently. Before first use, prime pump. After use, clean tip and replace cap. 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 Advised to avoid scratching the area, I will refer him to derm for resection as he's symptomatic (itchiness, risk of bleeding). I told him that lesion is probably benign. Dry skin 06/06/2025 Assessment & Plan (06/06/2025 9:28 AM EST): Use ammonium lactate cream or OTC gold corona or cerave cream. Seasonal allergies 10/24/2023 Assessment & Plan (10/24/2023 3:28 PM EDT): - take Zyrtec daily for the next month and Flonase PRN Preventative health care 11/23/2022 Assessment & Plan (06/06/2025 9:26 AM EST): He declined Influenza, Covid and PCV. Counseled regarding completing these IZ at earliest convenience as well as RSV and Zoster vax . He will bring Hep B immunization profile from [employer]. Assessment & Plan (11/23/2022 10:37 AM EDT): [...] will bring Hep B immunization profile from [employer]. Dental visit I counseled to make an [...] in 6m Irritable bowel syndrome with diarrhea Helicobacter pylori gastritis 11/19/2022 Generalized anxiety disorder 11/19/2022 Gastric polyp 11/19/2022 Essential hypertension 11/19/2022 Assessment & Plan (06/06/2025 9:25 AM EST): Controlled. Compliant w/meds Continue losartan/hctz same dose Counseled re low salt diet/increase moderate physical activity. Check home BP BIW and prn CP/EMERY/CADET/lightheadedness. Re consult if lightheadedness if persistent, may adjust BP meds if symptomatic. Non smoking patient. FU in 6m with labs He declined PCV, RSV, Zoster and Covid (booster) vax, advised to get them at his earliest convenience. Assessment & Plan (11/22/2024 10:44 AM EDT): [...] Encounters Date Type Department Care Team Description 06/06/2025 9:00 AM EST Office Visit [facility] [address] [place] [address] Hayley Mooney MD Senile keratosis (Primary Dx); Essential hypertension; Dry skin; Preventative health care; Allergic conjunctivitis of both eyes and rhinitis 06/06/2025 Travel 06/05/2025 Orders Only [facility] External Provider, [facility] 06/05/2025 Telephone [facility] [address] [place] [address] Hayley Mooney MD CHART PREP 05/10/2025 9:30 AM EST Office Visit [facility] OPTOMETRY [address] [place] [address] Davon, Jory, OD 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 0 06/06/2025 How many drinks containing a lcohol do you have on a typical day when you are drinking? 0 06/06/2025 How often do you have six or more drinks on one occasion? 0 06/06/2025 Depression Answer Date Recorded Patient Health Questionnaire-9 Score 0 06/06/2025 Patient Health Questionnaire-9 Score 0 06/06/2025 Last PHQ-9: Questionnaire Data Not on file 1 08/07/2024 Housing Stability Answer Date Recorded What is your housing situation today? I have francis dixon 06/06/[address] you li ve. Do you have problems with any of the following? None of the above 06/06/2025 Food Insecurity Answer Date Recorded Within the [...] Date Recorded Patient Health Questionnaire-2 Score 0 06/06/2025 Internet Access Answer Date Recorded Internet Access [...] Sign Reading Time Taken Comments Blood Pressure 106/56 06/06/2025 8:57 AM EST Pulse 66 06/06/2025 8:57 AM EST Temperature 36.1 C (96.9 F) 06/06/2025 8:57 AM EST Respiratory Rate 16 06/06/2025 8:57 AM EST Oxygen Saturation 99% 03/22/2024 10:56 AM EDT Inhaled Oxygen Concentration - - Weight 66 kg (145 lb 9.6 oz) 06/06/2025 8:57 AM EST Height 177 cm (5' 9.69 ) 06/06/2025 8:57 AM EST Body Mass Index 21.08 06/06/2025 8:57 AM EST Plan of Treatment Health Maintenance Due Date Last Done Comments [...] 02/12/2021 Influenza Vaccine (#1) 2025 03/28/2022, 2020 SDOH Screening 11/12/2025 11/12/2024 Alcohol/Substance Use Screening 06/06/2026 06/06/2025 Depression Screening 06/06/2026 06/06/2025, 06/06/20 Tobacco Screening 06/06/2026 06/06/2025 Lipid Panel 11/22/2029 11/22/2024, 04/0 08/2023, 03/14/2023, Additional history exists DTaP/Tdap/Td Vaccines (2 - Td or Tdap) 10/02/2032 10/02/2022 Hepatitis C Screening Completed 05/05/2021 Hepatitis B Vaccines Completed 05/20/2025, 12/13/2024, 11/15/2024 HIB Vaccines Aged Out No longer eligi [...] Procedure Name Priority Date/Time Associated Diagnosis Comments US ABDOMEN LIMITED Routine 06/06/2025 9: 52 AM EST LIVER FIBROSIS, FIBROTEST ACTITEST PANEL Routine 05/02/2025 [...] C ANTIBODY Routine 05/05/2021 8:10 AM EST HM COLONOSCOPY Routine 04/03/2021 11:07 AM EDT ZZZ HISTORICAL OCCULT BLOOD STOOL X3 Routine 09/20/2019 12:00 AM EDT from Last 3 Months or Most Recently Relevant to Health Maintenance Results * US Abdomen Limited (06/06/2025 9:52 AM EST) Anatomical Region Laterality Modality Abdomen Ultrasound 06/06/2025 9:52 AM EST Narrative 06/06/2025 9:53 AM EST [place] [id number] Ultrasound Report Signed Patient: Deny Scales MR#: [id number] : 1950 Acct:[id number] Age/Sex: 74 / M ADM Date: 06/05/25 Loc: HO.US Attending Dr: Pedro Rader MD Ordering Physician: Pedro Rader MD Date of Service: 06/05/25 Procedure(s): US abdomen limited Accession Number(s): [id number] cc: Hayley Mooney MD; Pedro Rader MD Reason for Exam: 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 Tail obscured by bowel gas. Liver is normal in size and echotexture. Right lobe length 13.1 cm. No focal hepatic masses. Common duct 2.0 mm diameter. Gallbladder is physiologically distended. No gallstones, sludge or wall abnormalities. No gallbladder wall thickening. No pericholecystic fluid. No sonographic Max sign. Main portal vein antegrade. Right kidney measures, 10.1 cm in length. Normal cortical width and echotexture. No hydronephrosis calculus or mass. Impression: 1. Normal right upper quadrant ultrasound This document has been electronically signed by: Enrique Billy MD on 06/06/2025 09:52:00 Dictated By: Enrique Billy MD Signed By: <Electronically signed by Enrique Billy MD in OV> 06/06/25952 DD/ 1 TD/TT: 06/06/25951 Geothermal Operations Manager: Procedure Note Donotuseinterpreter, Image - 06/06/2025 [place] [address] Ultrasound Report Signed Patient: Gerald Scales#: [id number] : 1950cct:[id number] Age/Sex: 74 / MADM Date: 06/05/25 Loc: HO.US Attending Dr: Pedro Rader MD Ordering Physician: Pedro Rader MD Date of Service: 06/05/25 Procedure(s): US abdomen limited Accession Number(s): [id number] cc: Hayley Mooney MD; Pedro Rader MD Reason for Exam: 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 Tail obscured by bowel gas. Liver is normal in size and echotexture. Right lobe length 13.1 cm. No focal hepatic masses. Common duct 2.0 mm diameter. Gallbladder is physiologically distended. No gallstones, sludge or wall abnormalities. No gallbladder wall thickening. No pericholecystic fluid. No sonographic Max sign. Main portal vein antegrade. Right kidney measures, 10.1 cm in length. Normal cortical width and echotexture. No hydronephrosis calculus or mass. Impression: 1. Normal right upper quadrant ultrasound This document has been electronically signed by: Enrique Billy MD on 06/06/2025 09:52:00 Dictated By: Enrique Billy MD Signed By: <Electronically signed by Enrique Billy MD in OV> 06/06/2553 DD/ 1 TD/TT: 06/06/25951 Geothermal Operations Manager: us [facility] External Provider IMG US PROCEDURES Edited Result - Final * Vitamin D, 25-Hydroxy, Total, Immunoassay (05/02/2025 9:36 AM EST) Vitamin D 25-OH Total 39.7 >30 ng/mL [facility] Comment: Health Based Reference Values*< 20 ng/mL [id number] ng/mL Insufficient> 30 ng/mL Sufficient*Nuris MORLEY. N [...] ORDERAB LES Final Result Performing Organization Address [facility]/ZIP Co de Phone Number [facility] [address] [place] [phone] * Vitamin B12 (Cobalamin) and Folate Panel, Serum (05/02/2025 9:36 AM EST) Vitamin B12 267 200 - 900 pg/mL [facility] Comment:NORMAL 200-900 PG/ML INDETERMINATE 160-199 PG/ML DEFICIENT < 160 PG/ML Folate 8.4 > or = 4.0 ng/mL [facility] Comment:Reference Values:> o r = 4.0 ng/mL< 4.0 ng/mL suggests folate deficiency Methotrexate, aminopterin and folinic acid(leucovorin) are chemotherapeutic agents whose molecularstructures are similar to folate; therefore, the Architectfolate assay cannot be used for patients using these drugs. 05/02/2025 9:36 AM EST 05/02/2025 9:36 AM EST Generic External Data Provider LAB BLOOD ORDERAB LES Final Result Performing Organization Address [facility]/ZIP Co de Phone Number [facility] [address] [place] [phone] * (ABNORMAL) Liver Fibrosis (HCV), FibroTest-ActiTest Panel (05/02/2025 9:36 AM EST) Liver Fibrosis Score 0.56 [facility] Liver Fibrosis Stage F2 [facility] Liver Fibrosis Interpretation SEE NOTE [facility] Comment:moderate fibrosisFib ro Test Score [...] (severe fibrosis) Nec Inflam Act Score 0.04 [facility] Nec Inflam Act Grade A0 [facility] Nec Inflam Act Interpretation SEE NOTE [facility] Comment:no activityActiTest Score (a) Metavir Score a>=0 and a<=0.17 : A0 (no activity)a>0.17 and a<=0.29 : A0-A1 (no activity)a>0.29 and a<=0.36 : A1 (minimal activity)a>0.36 and a<=0.52 : A1-A2 (minimal activity)a>0.52 and a<=0.60 : A2 (significant activity)a>0.60 and a<=0.62 : A2-A3 (significant activity)a>0.62 and a<=1.00 : A3 (severe activity) [id number]-Macroglo bulin 285(A) 106 - 279 mg/dL [facility] FIB-Haptoglobin 104 43 - 212 mg/dL [facility] FIB-Apolipoprotein A1 148 94 - 176 mg/dL [facility] FIB-Total Bilirubin 0.9 0.2 - 1.2 mg/dL [facility] FIB-GGT 11 3 - 70 U/L [facility] FIB-ALT 10 9 - 46 U/L [facility] Reference ID [id number] [facility] Footnote SEE NOTE [facility] Comment: The reliability of results [...] and C.The performance characteristics have been determined by[employer] [facility]. Ithas not been cleared or approved by the U.S. Food and DrugAdministration. Performance characteristics refer to theanalytical performance of the test.[employer], the associated logo, [employer] and all associated [employer] lakhani are theregistered trademarks of [employer]. All third partymarks - (R) and (TM) - are the property of their respectiveowners. (C) 1722-2345 [employer]. Allrights reserved.THIS TEST WAS PERFORMED AT:[employer] [id number] [place] [phone] BRADLEY MD,PHD,LUCY 05/02/2025 9:36 AM EST 05/02/2025 9:36 AM EST us Generic External Data Provider LAB BLOOD ORDERAB LES Final Result [facility] [address] [place] [phone] * Prothrombin Time-INR (05/02/2025 9:36 AM EST) [facility] Prothrombin Time 12.3 11.2 - 13.5 SEC [facility] INTERNATIONAL NORM RATIO 1.0 0.9 - 1.1 [facility] Comment:INTERNATIONAL NORMAL IZED RATIO (INR) [...] ORDERAB LES Final Result Performing Organization Address [facility] de Phone Number [facility] [address] [place] [phone] * (ABNORMAL) CBC (05/02/2025 9:36 AM EST) [facility] White Blood Count 4.3(L) 4.8 - 10.8 X10*3/uL [facility] Red Blood Count 5.04 4.60 - 5.80 X10*6/uL [facility] Hemoglobin 14.0 14.0 - 18.0 g/dl [facility] Hematocrit 43.8 42.0 - 52.0 % [facility] Mean Corpuscular Volume 86.9 80.0 - 98.0 fL [facility] Mean Corpuscular Hemoglobin 27.8 27.0 - 33.0 pg [facility] Mean Corpuscular HGB Conc 32.0 31.0 - 36.0 g/dl [facility] Red Cell Distribution Width 13.3 11.0 - 16.0 % [facility] Platelet Count 151(L) 160 - 400 X10*3/uL [facility] Mean Platelet Volume 9.4 9.4 - 12.4 fL [facility] NRBC Pct Auto 0.0 0.0 - 0.2 /100WBC [facility] NRBC Abs Auto 0.000 0.0 - 0.012 X10*3/uL [facility] 05/02/2025 9:36 AM EST 05/02/2025 9:36 AM EST us Generic External Data Provider LAB BLOOD ORDERAB LES Final Result [facility] [address] [place] [phone] * (ABNORMAL) Comprehensive Metabolic Panel (05/02/2025 9:36 AM EST) Sodium 141 135 - 145 mmol/L [facility] Potassium 4.1 3.3 - 5.1 mmol/L [facility] Chloride 107 96 - 108 mmol/L [facility] Carbon Dioxide 29 22 - 29 mmol/L [facility] Anion Gap 9(L) 12 - 20 [facility] Urea Nitrogen (BUN) 24(H) 9 - 16 mg/dL [facility] Creatinine, Serum 0.97 0.5 - 1.4 mg/dL [facility] Estimated Glomerular Filt Rate >60 [facility] Comment:Chronic Kidney Disea se: Estimated GFR < 60 mL/min/1.73w3Yboerr Kidney Disease: Estimated GFR < 15 mL/min/1.73m2 Glucose 96 60 - 115 mg/dL [facility] Calcium 9.3 8.4 - 10.2 mg/dL [facility] Bilirubin, Total 1.0 0.0 - 1.0 mg/dL [facility] Aspartate Amino Transferase 27 5 - 37 U/L [facility] Alanine Aminotransferase 19 0 - 40 U/L [facility] Total Protein 7.3 6.5 - 8.0 g/dL [facility] Albumin Level 4.4 3.5 - 5.0 g/dL [facility] Alkaline Phosphatase 60 39 - 117 U/L [facility] 05/02/2025 9:36 AM EST 05/02/2025 9:36 AM EST us Generic External Data Provider LAB BLOOD ORDERAB LES Final Result Performing Organization Address [facility] Co de Phone Number [facility] [address] [place] [phone] * (ABNORMAL) Lipid Panel with Reflex to Direct LDL (11/22/2024 7:06 AM EDT) Triglycerides 88 <150 mg/dL [facility] Comment:Desirable Triglyceri de: less than 150 mg/dLBorderline High Triglyceride 150-199 mg/dLHigh Triglyceride: 200-499 mg/dLVery High Triglyceride: greater than or equal to 5OO mg/dL Cholesterol 188 <200 mg/dL [facility] Comment:Desirable Cholestero l: less than 200 mg/dLBorderline High Cholesterol: 200-239 mg/dLHigh Cholesterol: greater than 239 mg/dL LDL Cholesterol Calculated 123(H) <100 mg/dL [facility] Comment:Desirable LDL: less than 100 mg/dLNear Optimal/Above Optimal LDL: 110- 129 mg/dLBorderline High LDL: 130-159 mg/dLHigh LDL: 160-189 mg/dLVery High LDL: greater than or equal to 190 mg/dL HDL Cholesterol 48 >40 mg/dL [facility] Comment:Desirable HDL: great er than 40 mg/dL Note: This HDL assay may give artificially low results in patients with liver disease. Blood 11/22/2024 7:06 AM EDT 11/22/2024 7:06 AM EDT us Hayley Mooney MD LAB BLOOD ORDERABLES Fin al Result Performing Organization Address [facility]/ZIP Co de Phone Number [facility] [address] [place] [phone] * Hepatitis C Antibody (05/05/2021 8:10 AM EST) Hepatitis C Antibody Nonreactive Nonreactive [facility] Comment: Antibodies to HCV not detected; does not exclude early acute HCV infection. 05/05/2021 8:10 AM EST Historical Provider HISTORICAL/NON ORDERABLE LABS Final Result Performing Organization Address [facility] Co de Phone Number [facility] [address] * Hm Colonoscopy (04/03/2021 11:07 AM EDT) Colonoscopy Normal Normal Narrative Dorothy Higgins - 04/03/2021 11:07 AM EDT [place] 3 [place] [place] Historical Provider HEALTH MAINTENANCE Edited Result - Final * OCCULT BLOOD STOOL X3 (09/20/2019 12:00 AM EDT) OCCULT BLOOD STOOL-1 NEG NEG [facility] OCCULT BLOOD STOOL-1 DATE 09/19/19 AM [facility] OCCULT BLOOD STOOL-2 NEG NEG [facility] OCCULT BLOOD STOOL-2 DATE 09/19/19 PM [facility] OCCULT BLOOD STOOL-3 NEG NEG [facility] OCCULT BLOOD STOOL-3 DATE 09/20/19 AM [facility] 09/20/2019 Hayley Mooney MD HISTORICAL/NON ORDERABLE LABS Final Result Performing Organization Address [facility] Co de Phone Number [facility] [address] from Last 3 Months or Most Recently Relevant to Health Maintenance Insurance [employer] (O D-SNP) Care Teams Warehouse Receiving Clerk Relationship Specialty Start Date End Date Hayley Mooney MD [address] [place] [address] PCP - General Family Medicine 09/14/19
--- OUTSIDE RECORDS SUMMARY | 2025-06-12 09:23 | XMS_ITS | Encounter Summary ---
Author Organization [email or web address] Address [address] [facility] [address] [place] [address] Care Team Providers Care Cattle Shipper Name Role Phone Hayley Mooney MD Primary Care Provider + Reason for Visit * Reason Onset Date Comments triage 11/01/2022 Encounter Details Date Type Department Care Team (Late st Contact Info) Description 11/01/2022 Telephone [facility] [address] [place] [address] Hayley Mooney MD [address] [place] [address] triage Social History Tobacco Use Types Packs/Day [...] 11/01/2022 12:25 PM EDT Triage call with [facility] [phone] Pt reports home care was applied over [...] now The caller accepted this outcome speaks honduran documented in this encounter Plan of Treatment Not on file documented as of this encounter Visit Diagnoses Not on filedocumented in this encounter Care Teams Cattle Shipper Relationship Specialty Start Date End Date Hayley Mooney MD [address] [place] [phone] PCP - General Family Medicine 09/14/19 documented as of this encounter
--- OUTSIDE RECORDS SUMMARY | 2025-06-12 09:23 | XMS_ITS | Encounter Summary ---
Author Organization [employer] Address [address] [facility] [address] [place] [address] Care Team Providers Care Operations Forester Name Role Phone Hayley Mooney MD Primary Care Provider + Encounter Details Date Type Department Care Team (Late st Contact Info) Description 12/09/2022 Abstract [facility] [address] [place] [address] Hayley Mooney MD [address] [place] [address] Social History Tobacco Use Types Packs/Day Years [...] AM EDT Recommended 3 [place] [place] us Historical Provider HEALTH MAINTENANCE Edited Result - Final documented in this encounter Visit Diagnoses Not on filedocumented in this encounter Care Teams Operations Forester Relationship Specialty Start Date End Date Hayley Mooney MD [address] [place] [phone] PCP - General Family Medicine 09/14/19 documented as of this encounter
== END 2025-06-12 09:13 | disposition home or self-care (01) ==
LOC: HO.HGS 08:51
PROVIDERS: PCP Internal Medicine; Visit Provider Surgery
DX: Z87.19 Personal history of other diseases of the digestive system (principal)
CPT/HCPCS: 46600; 99213

== ENCOUNTER → 2025-06-12 08:51 | Outpatient (BNVA) | payer OTHER, SELFPAY | PROVIDERS: PCP Internal Medicine; Visit Provider Surgery | DX: Z09 Encounter for follow-up examination after completed treatment for conditions other than malignant neoplasm (principal); Z87.19 Personal history of other diseases of the digestive system | CPT/HCPCS: 46600; 99212 ==